=== PATIENT | male | born 1940 | race Caucasian/White ===

== ENCOUNTER → 2017-11-02 | Outpatient (CLI) | payer MEDICARE ==
--- NOTE | 2017-11-02 15:05 | XR ---
EXAMINATION TYPE: XR wrist complete LT DATE OF EXAM: 11/02/2017 CLINICAL HISTORY: Generalized wrist pain with no known injury. TECHNIQUE: Frontal, lateral and oblique images of the left wrist are obtained. COMPARISON: None FINDINGS: There is no acute fracture/dislocation evident in the left wrist. There is joint space ruby rowing and sclerosis of the scaphoid radial joint. There is widening of the scapholunate interval wit hout abnormal orientation of the lunate bone. This may represent chronic scapholunate ligament tear. Calcification is seen of the triangular fibrocartilage. Deformity of the distal radius likely relate s to sequela of prior trauma. Minimal degenerative changes at the first carpometacarpal joint are dis played as mild osseous irregularity. The overlying soft tissue appears unremarkable. IMPRESSION: 1. No acute fracture or dislocation in the left wrist. 2. Widening of the scapholunate interval which may represent chronic injury without lunate dislocatio n. MR could be performed for confirmation. 3. Sclerosis of the distal radius and scaphoid with joint space narrowing and apposition of the osseo us surfaces likely on a degenerative basis. 4. Calcification of the triangular fibrocartilage which can be seen in arthropathies.
== END | disposition home or self-care (01) ==
LOC: RADXRYALE 14:13
PROVIDERS: ATTEND Physician Assistant Medical
DX: M25.832 Other specified joint disorders, left wrist (principal); M12.832 Other specific arthropathies, not elsewhere classified, left wrist

== ENCOUNTER → 2018-12-12 | Outpatient (CLI) | payer MEDICARE ==
--- NOTE | 2018-12-12 11:43 | XR ---
EXAMINATION TYPE: XR knee complete LT DATE OF EXAM: 12/12/2018 CLINICAL HISTORY: Left knee pain and swelling TECHNIQUE: Three views of the left knee are obtained. COMPARISON: None. FINDINGS: There is no acute fracture/dislocation evident in left knee. Left knee arthroplasty mainta ins normal alignment without hardware fracture. Only minimal lucency is seen of the medial tibial annette teau and mediofemoral condyle without periprosthetic lucency. Minimal periprosthetic lucency of the t ibial stem is noted however overall findings are within normal limits. Severe atherosclerosis is pres ent. There is mild diffuse osseous demineralization. The overlying soft tissue appears unremarkable. IMPRESSION: There is no acute fracture or dislocation in the left knee. No malalignment of the prost hesis. If there is concern for a septic or septic prosthetic loosening bone scan could be performed.
== END | disposition home or self-care (01) ==
LOC: RADXRYALE 11:12
PROVIDERS: ATTEND Physician Assistant Medical
DX: M25.562 Pain in left knee (principal)

== ENCOUNTER → 2019-03-02 | Outpatient (CLI) | payer MEDICARE ==
--- NOTE | 2019-03-02 14:51 | CT ---
EXAMINATION TYPE: CT abdomen pelvis w con DATE OF EXAM: 03/02/2019 COMPARISON: HISTORY: Hematuria x [address] DLP: 1378.9 mGycm CONTRAST: CT scan of the abdomen and pelvis is performed with Oral Contrast and with IV Contrast, patient injec chun with 100 mL of Isovue M300. FINDINGS: LUNG BASES-: No visible nodule. No infiltrate. LIVER/GB: No calcified gallstones. No space occupying hepatic lesion. Biliary tree is of normal ca liber. PANCREAS: No inflammation. No distinct mass. SPLEEN: No splenic enlargement. No lesion seen. ADRENALS: No nodule. No thickening. KIDNEYS/BLADDER: 1 cm calculus or 2 adjacent calculi within the urinary bladder to the right of the m idline near the right UVJ. No evidence for hydronephrosis. 4 mm nonobstructing calculus mid to lower pole right kidney. No left-sided calculi seen. Subcentimeter renal cysts noted bilaterally. BOWEL: Normal appendix. Normal bowel caliber. No inflammation. GENITAL ORGANS: No gross abnormality. LYMPH NODES: No greater than 1cm abdominal or pelvic lymph nodes are appreciated. AORTA: No significant abnormality. OSSEOUS STRUCTURES: Vacuum disc changes lumbar spine. OTHER: No significant additional abnormality is seen. IMPRESSION: 1. Urinary bladder calculus as noted above adjacent to the right UVJ without obstructive change noted . Nonobstructing right renal calculus noted as well.
== END | disposition home or self-care (01) ==
LOC: RADCTMAIN 12:52
PROVIDERS: ATTEND Urology
DX: N20.0 Calculus of kidney (principal); N21.0 Calculus in bladder
CPT/HCPCS: 82565; 84520; 74177; 36415; Q9967

== ENCOUNTER 2019-03-12 09:45 | Emergency (ER) | payer MEDICARE ==
--- NOTE | 2019-03-12 10:09 | ED ---
Male Urogenital HPI - General Chief complaint: Urogenital Stated complaint: Trouble urinating Time Seen by Provider: 03/12/19 09:56 Source: patient Mode of arrival: wheelchair Limitations: no limitations - History of Present Illness Initial comments: Patient is a 78-year-old male presenting to the emergency Department with complaints of unable to urinate since about 1 AM. Patient states yesterday he had a hard time urinating throughout the day but then has not been able to go since early this morning. Patient is complaining of abdominal pain and p ressure. Patient denies any fever, chills. Patient states he did have a recent bladder scope to look at a bladder stones approximately one week ago. Patient states he has been having hematuria for a few months now. No other complaints at this time. On arrival to ER, BP is elevated at 202/107. Rest of vital signs are normal, afebrile. - Related Data Home Medications Medication Instructions Recorded Confirmed Apixaban [Eliquis] 5 mg PO BID 03/12/19 03/12/19 Atorvastatin [Lipitor] 40 mg PO HS 03/12/19 03/12/19 Cholecalciferol [Vitamin D3 (25 1,000 unit PO TID 03/12/19 03/12/19 Mcg = 1000 Iu)] Insulin Aspart [NovoLOG Flexpen] 6 units SQ TID 03/12/19 03/12/19 Insulin Glargine [Lantus] 25 unit SQ HS 03/12/19 03/12/19 Levothyroxine Sodium [Synthroid] 88 mcg PO DAILY 03/12/19 03/12/19 Losartan Potassium [Cozaar] 25 mg PO HS 03/12/19 03/12/19 Montelukast [Singulair] 10 mg PO HS 03/12/19 03/12/19 Multivitamins, Thera [Multivitamin 1 tab PO DAILY 03/12/19 03/12/19 (formulary)] Tamsulosin HCl [Flomax] 0.4 mg PO BID 03/12/19 03/12/19 acetaZOLAMIDE [Diamox Sequels] 500 mg PO HS 03/12/19 03/12/19 metFORMIN HCL 1,000 mg PO BID 03/12/19 03/12/19 Allergies Allergy/AdvReac Type Severity Reaction Status Date / Time No Known Allergies Allergy Verified 03/12/19 10:14 Review of Systems ROS Statement: Those systems with pertinent positive or pertinent negative responses have been documented in the HPI. ROS Other: All systems not noted in ROS Statement are negative. Past Medical History Past Medical History: Diabetes Mellitus Additional Past Medical History / Comment(s): bladder stones History of Any Multi-Drug Resistant Organisms: None Reported Past Psychological History: No Psychological Hx Reported Smoking Status: Never smoker Past Alcohol Use History: None Reported Past Drug Use History: None Reported General Exam - General Exam Comments Initial Comments: GENERAL: Well-appearing, well-nourished and in mild distress secondary to abdominal pressure and pain. HEAD: Atraumatic, normocephalic. EYES: Pupils equal round and reactive to light, extraocular movements intact, sclera anicteric, conjunctiva are normal. ENT: TMs normal, nares patent, oropharynx clear without exudates. Moist mucous membranes. NECK: Normal range of motion, supple without lymphadenopathy or JVD. LUNGS: Breath sounds clear to auscultation bilaterally and equal. No wheezes rales or rhonchi. HEART: Regular rate and rhythm without murmurs, rubs or gallops. ABDOMEN: Tender to palpation over suprapubic area secondary to retention. After catheter placed, no abdominal pain noted. Soft, normoactive bowel sounds. No guarding, no rebound. No masses appreciated. : Deferred EXTREMITIES: Normal range of motion, no pitting or edema. No clubbing or cyanosis. NEUROLOGICAL: Cranial nerves II through XII grossly intact. Normal speech, normal gait. PSYCH: Normal mood, normal affect. SKIN: Warm, Dry, normal turgor, no rashes or lesions noted. Limitations: no limitations Course Vital Signs 03/12/19 03/12/19 09:47 12:00 Temperature 97.9 F 98.1 F Pulse Rate 84 80 Respiratory 18 16 Rate Blood Pressure 202/107 122/69 O2 Sat by Pulse 98 98 Oximetry Medical Decision Making - Medical Decision Making Patient is a 78-year-old male presenting with urinary retention since early this morning. Patient has been seen Dr. Prieto for 2 bladder stones and hematuria for a few months now. Patient states he was only able to urinate a little bit throughout yesterday and then everything stopped around 1 AM. Patient is having abdominal pain and discomfort. Bladder scan was performed and showed 1 L fluid. A goldman catheter was placed with immediate improvement in symptoms. CBC, CMP are within normal limits. UA shows moderate amount of blood and wbc's. KUB shows the same to calcified structures that were identified on CT and 823. There position is relatively unchanged. There is no obstruction at this time. Goldman will be left in place at this time and patient will follow up with Dr. Jenelle smallwood tomorrow. Patient is in agreement with this plan of care. Vital signs are stable upon discharge. He turned parameters were discussed with the patient he verbalizes understanding. Case discussed with Dr. Quintero. - Lab Data Result diagrams: 03/12/19 10:35 03/12/19 10:35 Lab Results 03/12/19 03/12/19 03/12/19 Range/Units 10:15 10:35 10:35 WBC 11.1 H (3.8-10.6) k/uL RBC 5.68 (4.30-5.90) m/uL Hgb 17.7 H (13.0-17.5) gm/dL Hct 53.4 H (39.0-53.0) % MCV 94.1 (80.0-100.0) fL MCH 31.1 (25.0-35.0) pg MCHC 33.1 (31.0-37.0) g/dL RDW 14.6 (11.5-15.5) % Plt Count 210 (150-450) k/uL Neutrophils % 80 % Lymphocytes % 9 % Monocytes % 8 % Eosinophils % 2 % Basophils % 1 % Neutrophils # 8.8 H (1.3-7.7) k/uL Lymphocytes # 1.0 (1.0-4.8) k/uL Monocytes # 0.9 (0-1.0) k/uL Eosinophils # 0.2 (0-0.7) k/uL Basophils # 0.1 (0-0.2) k/uL Sodium 137 (137-145) mmol/L Potassium 4.2 (3.5-5.1) mmol/L Chloride 109 H (98-107) mmol/L Carbon Dioxide 18 L (22-30) mmol/L Anion Gap 10 mmol/L BUN 21 H (9-20) mg/dL Creatinine 0.91 (0.66-1.25) mg/dL Est GFR (CKD-EPI)AfAm >90 (>60 ml/min/1.73 sqM) Est GFR (CKD-EPI)NonAf 82 (>60 ml/min/1.73 sqM) Glucose 217 H (74-99) mg/dL Calcium 9.4 (8.4-10.2) mg/dL Total Bilirubin 0.7 (0.2-1.3) mg/dL AST 18 (17-59) U/L ALT 23 (21-72) U/L Alkaline Phosphatase 69 (38-126) U/L Total Protein 6.4 (6.3-8.2) g/dL Albumin 3.5 (3.5-5.0) g/dL Urine Color Light Yellow Urine Appearance Cloudy (Clear) Urine pH 5.5 (5.0-8.0) Ur Specific [place] 1.008 (1.001-1.035) Urine Protein Trace H (Negative) Urine Glucose (UA) Negative (Negative) Urine Ketones Negative (Negative) Urine Blood Moderate H (Negative) Urine Nitrite Negative (Negative) Urine Bilirubin Negative (Negative) Urine Urobilinogen <2.0 (<2.0) mg/dL Ur Leukocyte Esterase Large H (Negative) Urine RBC 52 H (0-5) /hpf Urine WBC 36 H (0-5) /hpf Urine WBC Clumps Few H (None) /hpf Urine Bacteria Many H (None) /hpf Disposition Clinical Impression: Urinary retention Disposition: HOME SELF-CARE Condition: Stable Instructions (If sedation given, give patient instructions): Urinary Retention in Men (ED), Goldman Catheter Placement and Care (ED) Additional Instructions: Please return to the Emergency Department if symptoms worsen or any other concerns. Follow-up with Dr. Prieto tomorrow as discussed. Is patient prescribed a controlled substance at d/c from ED?: No Referrals: Sharif Tamayo DO [Primary Care Provider] - 1-2 days [place] Prieto MD [STAFF PHYSICIAN] - 1-2 days
[2019-03-12 11:00] LABS: Appearance,Urine Cloudy (Clear); Bacteria,Urine Many /hpf; Bilirubin,Urine Negative (Negative); Blood,Urine Moderate (Negative); Color,Urine Light Yellow; Glucose,Urine (UA) Negative (Negative); Ketones,Urine Negative (Negative); Leukocyte Esterase,Urine Large (Negative); Nitrite,Urine Negative (Negative); PH, Urine 5.5 (5.0-8.0); Protein,Urine Trace (Negative); RBC,Urine 52 /hpf (0-5); Specific Gravity,Urine 1.008 (1.001-1.035); Urobilinogen,Urine <2.0 mg/dL (<2.0)
[2019-03-12 11:01] LABS: Basophils # (A) 0.1 k/uL (0-0.2); Basophils % (A) 1 %; Eosinophils # (A) 0.2 k/uL (0-0.7); Eosinophils % (A) 2 %; HCT 53.4 % (39.0-53.0); HGB 17.7 gm/dL (13.0-17.5); Lymphocytes % (A) 9 %; MCH 31.1 pg (25.0-35.0); MCHC 33.1 g/dL (31.0-37.0); MCV 94.1 fL (80.0-100.0); Mean Platelet Volume 7.6; Monocytes # (A) 0.9 k/uL (0-1.0); Monocytes % (A) 8 %; Neutrophils # (A) 8.8 k/uL (1.3-7.7); Neutrophils % (A) 80 %; Platelet Count 210 k/uL (150-450); RBC 5.68 m/uL (4.30-5.90); RDW 14.6 % (11.5-15.5); WBC 11.1 k/uL (3.8-10.6)
--- NOTE | 2019-03-12 11:06 | XR ---
EXAMINATION TYPE: XR KUB DATE OF EXAM: 03/12/2019 10:55 AM CLINICAL HISTORY: Abdominal pain with history of urinary bladder stone. Inability to urinate. TECHNIQUE: Single upright image of the abdomen is obtained. COMPARISON: CT 03/02/2019. FINDINGS: There are 2 calcified structures within the pelvis. The right lateral aspect of the expecte d location of the urinary bladder. These are thought to correspond to the calculi seen at the right u reterovesicular junction without hydronephrosis on the prior CT of 03/02/2019 these measure 1.0 cm and 0.8 cm. Extensive atherosclerosis of the abdominal aorta and its branches. Mild dextro scoliosis of lumbar spine and extensive degenerative change. Enlarged cardiac mediastinal silhouette with post CAB G changes and surgical clips in the lower mediastinum. Lung bases are well aerated. No suspicious justine cifications in the abdomen IMPRESSION: Two calcified structures in the expected location of the right ureterovesicular junction appear to represent calculi as seen on the prior CT of 03/02/2019, overall unchanged in position. Thes e did not resultant hydronephrosis at that time. Urologic consultation may be of benefit.
[2019-03-12 11:07] LABS: ALT 23 U/L (21-72); AST 18 U/L (17-59); African American GFR (CKD) >90 (>60 ml/min/1.73 sqM); Albumin 3.5 g/dL (3.5-5.0); Alkaline Phosphatase 69 U/L (38-126); Anion Gap 10 mmol/L; Blood Urea Nitrogen 21 mg/dL (9-20); Calcium 9.4 mg/dL (8.4-10.2); Carbon Dioxide 18 mmol/L (22-30); Chloride 109 mmol/L (98-107); Glucose 217 mg/dL (74-99); Potassium 4.2 mmol/L (3.5-5.1); Sodium 137 mmol/L (137-145); Total Bilirubin 0.7 mg/dL (0.2-1.3); Total Protein 6.4 g/dL (6.3-8.2)
[2019-03-12 12:16] VITALS: BP 122/69; PULSE 80; RESP 16; TEMP 98.1
== END 2019-03-12 12:00 | disposition home or self-care (01) ==
LOC: EC 09:45
DX: R33.9 Retention of urine, unspecified (principal); R10.9 Unspecified abdominal pain; E11.9 Type 2 diabetes mellitus without complications; Z79.01 Long term (current) use of anticoagulants; Z79.4 Long term (current) use of insulin; Z79.890 Hormone replacement therapy; Z79.899 Other long term (current) drug therapy
CPT/HCPCS: 36415; 51702; 74018; 80053; 81001; 85025; 87077; 87086; 87186; 99284

== ENCOUNTER → 2019-12-14 | Outpatient (CLI) | payer MEDICARE ==
--- NOTE | 2019-12-14 14:51 | XR ---
EXAMINATION TYPE: XR foot complete LT, XR ankle complete LT DATE OF EXAM: 12/14/2019 CLINICAL HISTORY: Foot and ankle pain increasing for 2 to 4 weeks with no known injury. TECHNIQUE: Frontal, lateral and oblique images of the left ankle and foot are obtained. COMPARISON: None. FINDINGS: Small vessel atherosclerosis is seen. There is a small plantar heel spur. Sclerotic focus o f the calcaneus most commonly represents a bone island. Very small corticated fragment inferior to th e medial malleolus and larger bone fragment inferior to the lateral malleolus are well corticated and likely sequela prior injury. Very mild soft tissue swelling of the low ankle joint. There is no acute fracture/dislocation evident in the left ankle. Distal phalanges are suboptimally evaluated given flexion deformities of the distal interphalangeal joints. Possible old fracture defor mities of the distal second and third metatarsal heads. The ankle mortise appears within normal limit s. The overlying soft tissue appears unremarkable. There is no acute fracture or dislocation evident in the left foot. The joint spaces in the left foot are aligned. Overlying soft tissue is unremark able. IMPRESSION: 1. No acute fracture or dislocation in the left ankle or foot. 2. Very mild soft tissue swelling of the low left ankle joint with well-corticated osseous fragments distal to the medial and lateral malleoli likely sequela of prior injury. If there is persistent pain MRI could evaluate for the surrounding ligamentous and tendinous structures of the ankle.
== END | disposition home or self-care (01) ==
LOC: RADXRYALE 14:24
PROVIDERS: ATTEND Physician Assistant Medical
DX: M79.89 Other specified soft tissue disorders (principal); M25.572 Pain in left ankle and joints of left foot

== ENCOUNTER 2021-09-20 12:36 | Emergency (ER) | payer MEDICARE ==
[2021-09-20 12:41] VITALS: BP 189/86; PULSE 68; RESP 18; TEMP 98.5
--- NOTE | 2021-09-20 13:40 | ED ---
General Adult HPI - General Chief complaint: Back Pain/Injury Stated complaint: back/leg pain Time Seen by Provider: 09/20/21 12:40 Source: patient, RN notes reviewed, old records reviewed Mode of arrival: wheelchair Limitations: no limitations - History of Present Illness Initial comments: This is a 80-year-old male who presents emergency room complaining of left lower back pain which radiates down the back of his left leg. Patient states started this morning. Patient states yesterday he was doing quite a bit of work outside and trimming trees lifting some items in though he did notice any pain then he woke up this morning and had the pain radiating down his leg per patient denies any blunt trauma or fall. Patient denies any abdominal pain. Patient denies any other injuries. Patient points to the area of the sacrum. - Related Data Home Medications Medication Instructions Recorded Confirmed Apixaban [Eliquis] 5 mg PO BID 03/12/19 03/12/19 Atorvastatin [Lipitor] 40 mg PO HS 03/12/19 03/12/19 Cholecalciferol [Vitamin D3 (25 1,000 unit PO TID 03/12/19 03/12/19 Mcg = 1000 Iu)] Insulin Aspart [NovoLOG Flexpen] 6 units SQ TID 03/12/19 03/12/19 Insulin Glargine [Lantus] 25 unit SQ HS 03/12/19 03/12/19 Levothyroxine Sodium [Synthroid] 88 mcg PO DAILY 03/12/19 03/12/19 Losartan Potassium [Cozaar] 25 mg PO HS 03/12/19 03/12/19 Montelukast [Singulair] 10 mg PO HS 03/12/19 03/12/19 Multivitamins, Thera [Multivitamin 1 tab PO DAILY 03/12/19 03/12/19 (formulary)] Tamsulosin HCl [Flomax] 0.4 mg PO BID 03/12/19 03/12/19 acetaZOLAMIDE [Diamox Sequels] 500 mg PO HS 03/12/19 03/12/19 metFORMIN HCL [Glucophage] 1,000 mg PO BID 03/12/19 03/12/19 Previous Rx's Medication Instructions Recorded predniSONE [Deltasone] 40 mg PO DAILY #8 tab 09/20/21 Allergies Allergy/AdvReac Type Severity Reaction Status Date / Time No Known Allergies Allergy Verified 03/12/19 10:14 Review of Systems ROS Statement: Those systems with pertinent positive or pertinent negative responses have been documented in the HPI. ROS Other: All systems not noted in ROS Statement are negative. Past Medical History Past Medical History: Diabetes Mellitus Additional Past Medical History / Comment(s): bladder stones History of Any Multi-Drug Resistant Organisms: None Reported Past Surgical History: Heart Catheterization With Stent, Joint Replacement, Orthopedic Surgery Past Psychological History: No Psychological Hx Reported Smoking Status: Never smoker Past Alcohol Use History: None Reported Past Drug Use History: None Reported General Exam - General Exam Comments Initial Comments: GENERAL: Patient is well-developed and well-nourished. Patient is nontoxic and well-hydrated and is in mild distress. ENT: Neck is soft and supple. No significant lymphadenopathy is noted. Oropharynx is clear. Moist mucous membranes. Neck has full range of motion without eliciting any pain. EYES: The sclera were anicteric and conjunctiva were pink and moist. Extraocular movements were intact and pupils were equal round and reactive to light. Eyelids were unremarkable. SKIN: Skin is clear with no lesions or rashes and otherwise unremarkable. NEUROLOGIC: Patient is alert and oriented x3. Cranial nerves II through XII are grossly intact. Motor and sensory are also intact. Normal speech, volume and content. Symmetrical smile. Straight leg test is negative and the right leg but the patient has pain lifting the left leg at about 30. Perineum sensation is normal MUSCULOSKELETAL: Normal extremities with adequate strength and full range of motion. N LYMPHATICS: No significant lymphadenopathy is noted PSYCHIATRIC: Normal psychiatric evaluation. Limitations: no limitations Course Vital Signs 09/20/21 12:37 Temperature 98.5 F Pulse Rate 68 Respiratory 18 Rate Blood Pressure 189/86 O2 Sat by Pulse 97 Oximetry Medical Decision Making - Medical Decision Making Lumbosacral spine showed no acute changes however there was some degenerative changes L4 to L5 Patient got a shot of Toradol and prednisone the emergency department and was feeling considerably better. Disposition Clinical Impression: Sciatica Disposition: HOME SELF-CARE Condition: Good Instructions (If sedation given, give patient instructions): Sciatica (ED) Additional Instructions: Patient should take prednisone daily starting tomorrow as prescribed. Patient should take Tylenol with codeine just prior to bed for pain relief. Patient can take Ultram during the day for pain relief along with Tylenol Prescriptions: predniSONE [Deltasone] 40 mg PO DAILY #8 tab Is patient prescribed a controlled substance at d/c from ED?: No Referrals: Sharif Tamayo DO [Primary Care Provider] - 1-2 days Time of Disposition: 14:23
[2021-09-20] MEDS ORDERED: KETOROLAC 15 MG/ML 1 ML VIAL IM STA (13:50)
[2021-09-20] MEDS ORDERED: predniSONE 50 MG TAB PO STA (13:50)
--- NOTE | 2021-09-20 14:12 | XR ---
EXAMINATION TYPE: XR lumbosacral spine min 4V DATE OF EXAM: 09/20/2021 COMPARISON: NONE HISTORY: Back pain TECHNIQUE: 7 views FINDINGS: There is mild lumbar dextroscoliosis. There is degenerative moderate disc space narrowing a t L3-4. There is no compression fracture. Sacroiliac joints are intact. There is a minimal L4-5 spond ylolisthesis. There is no spondylolysis. Abdominal aorta is atheromatous. IMPRESSION: Spondylotic changes and mild dextro scoliosis. Degenerative first-degree L4-5 spondylolisthesis. No f racture. No change compared to old CT scan of 03/02/2019.
[2021-09-20] MEDS ORDERED: ACET/COD 300 MG/30 MG STARTER PACK 6 TAB BTL PO STA (14:23)
[2021-09-20] MEDS ORDERED: traMADol 50 MG STARTER PACK 3 TAB BTL PO STA (14:24)
== END 2021-09-20 14:50 | disposition home or self-care (01) ==
LOC: EC 12:36
DX: M54.32 Sciatica, left side (principal); E11.9 Type 2 diabetes mellitus without complications; Y93.H2 Activity, gardening and landscaping
CPT/HCPCS: 72110; 99283; 96372; J1885; J7512

== ENCOUNTER 2021-09-25 09:04 | Emergency (ER) | payer MEDICARE ==
[2021-09-25 10:07] VITALS: TEMP 97.8
[2021-09-25] MEDS ORDERED: KETOROLAC 15 MG/ML 1 ML VIAL IM STA (10:10)
[2021-09-25] MEDS ORDERED: predniSONE 50 MG TAB PO STA (10:10)
--- NOTE | 2021-09-25 10:26 | ED ---
Back Pain HPI - General Chief Complaint: Back Pain/Injury Stated Complaint: groin & leg pain Time Seen by Provider: 09/25/21 10:01 Source: patient, family, RN notes reviewed Limitations: no limitations - History of Present Illness Initial Comments: This is a 81-year-old male who presents emergency Department with left lower back pain radiating into his left lower extremity. Patient was evaluated by Dr. Wood in the emergency Department 5 days ago. Patient was noted to be doing strenuous work prior to the pain. In the emergency department, he was given IM Toradol 15 mg and prednisone 50 mg, which was noted to improve the patient's symptoms. Patient was discharged with Ultram and Tylenol No. 3 starter packs, as well as a prescription for prednisone. Patient states that this improved his symptoms when he was taking it, however it never completely resolved. States that afterwards the pain returned. Also states that the pain seems to have progressed, and he is having difficulty sleeping and getting around. Patient has no neurological deficits or new symptoms. Denies any loss of bowel or bladder control. He did not follow up with his PCP after his last visit here to discuss an MRI. MD Complaint: back pain Onset/Timin -: days(s) Similar Symptoms Previously: Yes Place: home Radiation: left leg Quality: sharp, stabbing Consistency: constant - Related Data Home Medications Medication Instructions Recorded Confirmed Apixaban [Eliquis] 5 mg PO BID 03/12/19 09/25/21 Atorvastatin [Lipitor] 40 mg PO HS 03/12/19 09/25/21 Insulin Aspart [NovoLOG Flexpen] See Protocol SQ AC-TID 03/12/19 09/25/21 Insulin Glargine [Lantus] 30 unit SQ HS 03/12/19 09/25/21 Losartan Potassium [Cozaar] 25 mg PO DAILY 03/12/19 09/25/21 Tamsulosin HCl [Flomax] 0.8 mg PO DAILY 03/12/19 09/25/21 metFORMIN HCL [Glucophage] 1,000 mg PO BID 03/12/19 09/25/21 Brimonidine Tartrate/Timolol 1 drop BOTH EYES BID 09/25/21 09/25/21 [Combigan 0.2%-0.5% Eye Drops] Cholecalciferol [Vitamin D3 (125 125 mcg PO DAILY 09/25/21 09/25/21 Mcg = 5000 Iu)] Dorzolamide HCl/Pf [Dorzolamide 2% 1 drop BOTH EYES BID 09/25/21 09/25/21 Eye Drop] Fluticasone Nasal [place] [Flonase 2 spray EA NOSTRIL DAILY 09/25/21 09/25/21 Nasal [place]] Levothyroxine Sodium [Synthroid] 112 mcg PO DAILY 09/25/21 09/25/21 Netarsudil Mesylat/Latanoprost 1 drop BOTH EYES HS 09/25/21 09/25/21 [Rocklat[place] 0.02%-0.005% Eye Drp] Temazepam 7.5 mg PO HS PRN 09/25/21 09/25/21 Testosterone Cypionate 200 mg IM Q21D 09/25/21 09/25/21 [Depo-Testosterone] traMADol HCL [Ultram] 50 mg PO ONCE 09/25/21 09/25/21 Previous Rx's Medication Instructions Recorded HYDROcodone/APAP 5-325MG [[place] 1 tab PO Q6HR PRN 3 Days #12 tab 09/25/21 5-325] Lidocaine 5% Patch [Lidoderm 5% 1 patch TOPICAL DAILY PRN #10 patch 09/25/21 Patch] Allergies Allergy/AdvReac Type Severity Reaction Status Date / Time No Known Allergies Allergy Verified 09/25/21 10:47 Review of Systems ROS Statement: Those systems with pertinent positive or pertinent negative responses have been documented in the HPI. ROS Other: All systems not noted in ROS Statement are negative. Constitutional: Denies: fever, chills ENT: Denies: ear pain, throat pain Respiratory: Denies: cough, dyspnea Cardiovascular: Denies: chest pain, palpitations Gastrointestinal: Denies: abdominal pain, nausea, vomiting, diarrhea Genitourinary: Denies: urgency, dysuria Musculoskeletal: Reports: back pain Skin: Denies: rash Neurological: Denies: headache, weakness Past Medical History Past Medical History: Diabetes Mellitus Additional Past Medical History / Comment(s): bladder stones History of Any Multi-Drug Resistant Organisms: None Reported Past Surgical History: Heart Catheterization With Stent, Joint Replacement, Orthopedic Surgery Past Psychological History: No Psychological Hx Reported Smoking Status: Never smoker Past Alcohol Use History: None Reported Past Drug Use History: None Reported General Exam Limitations: no limitations General appearance: alert, in distress Head exam: Present: atraumatic, normocephalic, normal inspection Respiratory exam: Present: normal lung sounds bilaterally. Absent: respiratory distress, wheezes, rales, rhonchi, stridor Cardiovascular Exam: Present: regular rate, normal rhythm, normal heart sounds. Absent: systolic murmur, diastolic murmur, rubs, gallop, clicks Left Hip exam: Present: normal inspection. Absent: full ROM (limited by pain), tenderness, swelling, ecchymosis, deformity, erythema, external rotation, internal rotation, shortening Upper Leg exam: Present: normal inspection, tenderness (At the lateral aspect). Absent: full ROM (limited by pain), swelling, ecchymosis, deformity, erythema Knee exam: Present: full knee extension. Absent: tenderness, pain w/ pronation/supination, posterior draw sign, pain/laxity with valgus, pain/laxity with varus Neurovascular tendon exam: Present: no vascular compromise Back exam: Present: normal inspection, full ROM, tenderness (mild left lower back tenderness) Neurological exam: Present: alert, oriented X3, CN II-XII intact, reflexes normal. Absent: motor sensory deficit Psychiatric exam: Present: normal affect, normal mood Skin exam: Present: warm, dry, intact, normal color. Absent: rash Course Vital Signs 09/25/21 09/25/21 09/25/21 09:06 09:45 11:40 Temperature 97.1 F L 97.8 F Pulse Rate 60 52 L 71 Respiratory 18 18 16 Rate Blood Pressure 185/91 166/98 158/99 O2 Sat by Pulse 98 94 L 96 Oximetry Medical Decision Making - Medical Decision Making This is a 81-year-old male who presents to the emergency department with radiating back pain. Patient given 15 mg of IM Toradol and 50 mg of prednisone, which was given to him in the emergency department during his last visit. Patient noted improvement after treatment. Will discharge the patient with another Tylenol No. 3 starter pack, a short course or [place], and lidocaine patches. Advised he use the [place] sparingly, particularly at night when he has difficulty sleeping. He should avoid taking the tylenol #3, [place], or ultram at the same time. Discussed with the patient that he needs to follow-up with his primary care physician for an MRI referral to better evaluate his symptoms. We also discussed physical therapy and that it would be beneficial for the patient to at least have an evaluation by a physical therapist to see if that would be a viable treatment option. Return precautions reviewed in depth, the patient is instructed to return to the emergency department if symptoms worsen, including but not limited to, loss of bowel or bladder control, inability to ambulate, or worsening pain. Patient verbalized understanding. This case was discussed in detail with the attending ED physician. Presentation, findings, and treatment plan discussed in detail as well. Disposition Clinical Impression: Lumbar radiculopathy Disposition: HOME SELF-CARE Instructions (If sedation given, give patient instructions): Sciatica (ED), Ac [place] Low Back Pain (ED), Lumbar Radiculopathy (ED) Additional Instructions: Return to the emergency department if your symptoms worsen or do not improve, or you develop loss of bowel or bladder control. Follow up with primary care provider for an MRI and long-term symptomatic management. We did discuss physical therapy, and having at least an initial evaluation with a physical therapist could be very beneficial. Do not take the [place] with the Tramadol, use the [place] when you symptoms are more severe, particularly at night when you cannot sleep. Prescriptions: Lidocaine 5% Patch [Lidoderm 5% Patch] 1 patch TOPICAL DAILY PRN #10 patch PRN Reason: Pain HYDROcodone/APAP 5-325MG [[place] 5-325] 1 tab PO Q6HR PRN 3 Days #12 tab PRN Reason: Pain Is patient prescribed a controlled substance at d/c from ED?: Yes When asked, does pt state using other controlled substances?: No If prescribed controlled substance>3 days was MAPS reviewed?: Prescribed <3 Days Referrals: Sharif Tamayo DO [Primary Care Provider] - 1-2 days
[2021-09-25 11:42] VITALS: BP 158/99; PULSE 71; RESP 16
[2021-09-25] MEDS ORDERED: ACET/COD 300 MG/30 MG STARTER PACK 6 TAB BTL PO STA (11:48)
== END 2021-09-25 12:13 | disposition home or self-care (01) ==
LOC: EC 09:04
DX: M54.16 Radiculopathy, lumbar region (principal)
CPT/HCPCS: 99283; 96372; J1885; J7512

== ENCOUNTER → 2021-10-03 | Outpatient (CLI) | payer MEDICARE ==
--- NOTE | 2021-10-03 19:04 | MR ---
EXAMINATION TYPE: MR lumbar spine wo con DATE OF EXAM: 10/03/2021 COMPARISON: None HISTORY: R53.1, M54.42, Lower back pain into left Thigh Multiplanar multi echo imaging of the lumbar spine without contrast. Lumbar vertebrae have overall fairly normal alignment. There is a moderate narrowing of the L3-4 disc space with minimal anterior subluxation of 3 mm. There is no spondylolysis. There is a lateral disc herniation at L2-3 on the left side and encroaching on the neural foramen. Fragment measures 11 x 7 m m. There is also some left-sided L3-4 neural foraminal narrowing due to disc space narrowing and subl uxation and facet arthropathy. There is no spinal canal stenosis. There is no lumbar paraspinal mass. I see no focal bone destruction. No significant compression defor mity. IMPRESSION: Moderate spondylosis with degenerative first-degree L3-4 spondylolisthesis. L2-3 left sided lateral disc herniation with neural foraminal impingement. left side neural foraminal stenosis at L3-4.
== END | disposition home or self-care (01) ==
LOC: RADMRIMAIN 11:50
PROVIDERS: ATTEND Physician Assistant Medical
DX: M43.16 Spondylolisthesis, lumbar region (principal); M51.36 Other intervertebral disc degeneration, lumbar region; M54.42 Lumbago with sciatica, left side; R53.1 Weakness
CPT/HCPCS: 72148

== ENCOUNTER 2022-01-15 10:34 | Inpatient (IN) | payer MEDICARE ==
--- NOTE | 2022-01-15 11:30 | XR ---
EXAMINATION TYPE: XR chest 2V DATE OF EXAM: 01/15/2022 COMPARISON: None HISTORY: 81-year-old male lightheaded TECHNIQUE: PA and lateral views FINDINGS: Median sternotomy wires are present. Slight rightward patient rotation. Heart borderline enlarged. In terstitial/vascular prominence but no consolidation or pleural effusion. Mild anterior wedging of a c ouple mid thoracic vertebral bodies with accentuated midthoracic kyphosis. IMPRESSION: 1. Borderline heart size and interstitial/vascular prominence. Correlate to exclude CHF with mild pul monary vascular congestion. 2. Mild anterior wedging of a couple mid thoracic vertebral bodies with accentuated midthoracic kypho sis. These are age indeterminate, probably chronic changes. Clinically correlate.
[2022-01-15 11:50] LABS: Basophils % (A) 1 %; Eosinophils # (A) 0.2 k/uL (0-0.7); Eosinophils % (A) 2 %; HCT 49.9 % (39.0-53.0); HGB 16.9 gm/dL (13.0-17.5); Lymphocytes # (A) 1.5 k/uL (1.0-4.8); Lymphocytes % (A) 19 %; MCH 33.2 pg (25.0-35.0); MCHC 33.9 g/dL (31.0-37.0); MCV 97.8 fL (80.0-100.0); Mean Platelet Volume 8.6; Monocytes # (A) 0.7 k/uL (0-1.0); Monocytes % (A) 9 %; Neutrophils # (A) 5.2 k/uL (1.3-7.7); Neutrophils % (A) 67 %; Platelet Count 203 k/uL (150-450); RDW 13.6 % (11.5-15.5); WBC 7.7 k/uL (3.8-10.6)
[2022-01-15 11:52] LABS: AST 19 U/L (17-59); African American GFR (CKD) >90 (>60 ml/min/1.73 sqM); Albumin 3.9 g/dL (3.5-5.0); Alkaline Phosphatase 61 U/L (38-126); Blood Urea Nitrogen 12 mg/dL (9-20); Carbon Dioxide 25 mmol/L (22-30); Chloride 104 mmol/L (98-107); Glucose 126 mg/dL (74-99); Non-African American GFR(CKD) 86 (>60 ml/min/1.73 sqM); Potassium 4.5 mmol/L (3.5-5.1); Total Bilirubin 0.9 mg/dL (0.2-1.3); Total Protein 6.5 g/dL (6.3-8.2)
[2022-01-15 12:02] LABS: Partial Thromboplastin Time 24.7 sec (22.0-30.0); Prothrombin Time 11.2 sec (9.0-12.0)
--- NOTE | 2022-01-15 12:15 | ED ---
Dizziness HPI - General Chief Complaint: Dizziness Stated Complaint: Dizziness/weakness Time Seen by Provider: 01/15/22 10:51 Source: patient Mode of arrival: wheelchair Limitations: no limitations - History of Present Illness Initial Comments: Patient is a 81-year-old male who presents to the emergency department with a chief complaint of generalized weakness and intermittent episodes of dizziness 5 days. Patient states he overall feels very tired and has episodes where he feels as if the room is spinning and feels very unsteady on his feet. Patient denies syncope, chest pain, and shortness of breath. Patient states these episodes have never happened before. Patient is a questionable historian regarding history. His somewhat helps provide information. Patient is on Eliquis likely due to atrial fibrillation. Denies history of heart attack. Denies fever, chills, abdominal pain, back pain, nausea, vomiting, burning with urination, increased urinary frequency, blood in the urine, and blood in the stool. MD Complaint: dizziness - Related Data Home Medications Medication Instructions Recorded Confirmed Apixaban [Eliquis] 5 mg PO BID 03/12/19 09/25/21 Atorvastatin [Lipitor] 40 mg PO HS 03/12/19 09/25/21 Insulin Aspart [NovoLOG Flexpen] See Protocol SQ AC-TID 03/12/19 09/25/21 Insulin Glargine [Lantus] 30 unit SQ HS 03/12/19 09/25/21 Losartan Potassium [Cozaar] 25 mg PO DAILY 03/12/19 09/25/21 Tamsulosin HCl [Flomax] 0.8 mg PO DAILY 03/12/19 09/25/21 metFORMIN HCL [Glucophage] 1,000 mg PO BID 03/12/19 09/25/21 Brimonidine Tartrate/Timolol 1 drop BOTH EYES BID 09/25/21 09/25/21 [Combigan 0.2%-0.5% Eye Drops] Cholecalciferol [Vitamin D3 (125 125 mcg PO DAILY 09/25/21 09/25/21 Mcg = 5000 Iu)] Dorzolamide HCl/Pf [Dorzolamide 2% 1 drop BOTH EYES BID 09/25/21 09/25/21 Eye Drop] Fluticasone Nasal [place] [Flonase 2 spray EA NOSTRIL DAILY 09/25/21 09/25/21 Nasal [place]] Levothyroxine Sodium [Synthroid] 112 mcg PO DAILY 09/25/21 09/25/21 Netarsudil Mesylat/Latanoprost 1 drop BOTH EYES HS 09/25/21 09/25/21 [Rocklatan 0.02%-0.005% Eye Drp] Temazepam 7.5 mg PO HS PRN 09/25/21 09/25/21 Testosterone Cypionate 200 mg IM Q21D 09/25/21 09/25/21 [Depo-Testosterone] traMADol HCL [Ultram] 50 mg PO ONCE 09/25/21 09/25/21 Previous Rx's Medication Instructions Recorded HYDROcodone/APAP 5-325MG [[place] 1 tab PO Q6HR PRN 3 Days #12 tab 09/25/21 5-325] Lidocaine 5% Patch [Lidoderm 5% 1 patch TOPICAL DAILY PRN #10 patch 09/25/21 Patch] Allergies Allergy/AdvReac Type Severity Reaction Status Date / Time No Known Allergies Allergy Verified 01/15/22 10:46 Review of Systems ROS Statement: Those systems with pertinent positive or pertinent negative responses have been documented in the HPI. ROS Other: All systems not noted in ROS Statement are negative. Past Medical History Past Medical History: Diabetes Mellitus Additional Past Medical History / Comment(s): bladder stones History of Any Multi-Drug Resistant Organisms: None Reported Past Surgical History: Heart Catheterization With Stent, Joint Replacement, Orthopedic Surgery Past Psychological History: No Psychological Hx Reported Smoking Status: Never smoker Past Alcohol Use History: None Reported Past Drug Use History: None Reported General Exam Limitations: no limitations General appearance: alert, in no apparent distress Eye exam: Present: normal appearance, PERRL, EOMI. Absent: scleral icterus, conjunctival injection, periorbital swelling Respiratory exam: Present: normal lung sounds bilaterally. Absent: respiratory distress, wheezes, rales, rhonchi, stridor Cardiovascular Exam: Present: regular rate, irregular rhythm (irregularly irregular ), normal heart sounds. Absent: normal rhythm, systolic murmur, diastolic murmur, rubs, gallop, clicks GI/Abdominal exam: Present: soft, normal bowel sounds. Absent: distended, tenderness, guarding, rebound, rigid Extremities exam: Present: normal inspection, full ROM, normal capillary refill. Absent: tenderness, pedal edema, joint swelling, calf tenderness Neurological exam: Present: alert, oriented X3, CN II-XII intact Psychiatric exam: Present: normal affect, normal mood Skin exam: Present: warm, dry, intact, normal color. Absent: rash Course Vital Signs 01/15/22 01/15/22 01/15/22 10:46 10:58 13:35 Temperature 97.9 F Pulse Rate 46 L 40 L 38 L Respiratory 16 20 Rate Blood Pressure 145/77 156/72 O2 Sat by Pulse 99 97 Oximetry Medical Decision Making - Medical Decision Making This is a 81-year-old male who presents for generalized weakness and dizziness. Thorough history and examination were performed. Patient is well-appearing. He is bradycardic at 46 which appears significantly decreased from his typical pulse. Patient and his state he has never been told he has a low heart beat before. Full cardiac workup initiated. Patient placed on case monitor. EKG shows atrial fibrillation with slow ventricular response at 46. There is no previous to compare. Laboratory studies obtained. Hemoglobin is normal at 16.9 Troponin is within normal limits. Patient's pulse continued in the low 40s and high 30's during his emergency stay. Patient did have dizziness episode in the emergency department. At this time his pulse dropped to 38 bpm and patient became nauseous. Zofran ordered. At this time I recommend admission for symptomatic bradycardia with cardiology evaluation. Patient verbalizes understanding and is agreeable to admission. Case discussed with Saritha. Patient will be admitted to his service with cardiology consult for further evaluation and management of his symptoms. Patient admitted in stable condition. Dr. Johnston is my attending. - Lab Data Result diagrams: 01/15/22 11:07 01/15/22 11:07 Lab Results 01/15/22 01/15/22 01/15/22 Range/Units 11:07 11:07 11:07 WBC 7.7 (3.8-10.6) k/uL RBC 5.10 (4.30-5.90) m/uL Hgb 16.9 (13.0-17.5) gm/dL Hct 49.9 (39.0-53.0) % MCV 97.8 (80.0-100.0) fL MCH 33.2 (25.0-35.0) pg MCHC 33.9 (31.0-37.0) g/dL RDW 13.6 (11.5-15.5) % Plt Count 203 (150-450) k/uL MPV 8.6 Neutrophils % 67 % Lymphocytes % 19 % Monocytes % 9 % Eosinophils % 2 % Basophils % 1 % Neutrophils # 5.2 (1.3-7.7) k/uL Lymphocytes # 1.5 (1.0-4.8) k/uL Monocytes # 0.7 (0-1.0) k/uL Eosinophils # 0.2 (0-0.7) k/uL Basophils # 0.0 (0-0.2) k/uL PT 11.2 (9.0-12.0) sec INR 1.0 (<1.2) APTT 24.7 (22.0-30.0) sec Sodium 137 (137-145) mmol/L Potassium 4.5 (3.5-5.1) mmol/L Chloride 104 (98-107) mmol/L Carbon Dioxide 25 (22-30) mmol/L Anion Gap 8 mmol/L BUN 12 (9-20) mg/dL Creatinine 0.78 (0.66-1.25) mg/dL Est GFR (CKD-EPI)AfAm >90 (>60 ml/min/1.73 sqM) Est GFR (CKD-EPI)NonAf 86 (>60 ml/min/1.73 sqM) Glucose 126 H (74-99) mg/dL Calcium 8.9 (8.4-10.2) mg/dL Magnesium 1.6 (1.6-2.3) mg/dL Total Bilirubin 0.9 (0.2-1.3) mg/dL AST 19 (17-59) U/L ALT 15 (4-49) U/L Alkaline Phosphatase 61 (38-126) U/L Troponin I (0.000-0.034) ng/mL Total Protein 6.5 (6.3-8.2) g/dL Albumin 3.9 (3.5-5.0) g/dL Blood Type Blood Type Recheck Bld Type Recheck Status Antibody Screen Spec Expiration Date 01/15/22 01/15/22 Range/Units 11:07 11:15 WBC (3.8-10.6) k/uL RBC (4.30-5.90) m/uL Hgb (13.0-17.5) gm/dL Hct (39.0-53.0) % MCV (80.0-100.0) fL MCH (25.0-35.0) pg MCHC (31.0-37.0) g/dL RDW (11.5-15.5) % Plt Count (150-450) k/uL MPV Neutrophils % % Lymphocytes % % Monocytes % % Eosinophils % % Basophils % % Neutrophils # (1.3-7.7) k/uL Lymphocytes # (1.0-4.8) k/uL Monocytes # (0-1.0) k/uL Eosinophils # (0-0.7) k/uL Basophils # (0-0.2) k/uL PT (9.0-12.0) sec INR (<1.2) APTT (22.0-30.0) sec Sodium (137-145) mmol/L Potassium (3.5-5.1) mmol/L Chloride (98-107) mmol/L Carbon Dioxide (22-30) mmol/L Anion Gap mmol/L BUN (9-20) mg/dL Creatinine (0.66-1.25) mg/dL Est GFR (CKD-EPI)AfAm (>60 ml/min/1.73 sqM) Est GFR (CKD-EPI)NonAf (>60 ml/min/1.73 sqM) Glucose (74-99) mg/dL Calcium (8.4-10.2) mg/dL Magnesium (1.6-2.3) mg/dL Total Bilirubin (0.2-1.3) mg/dL AST (17-59) U/L ALT (4-49) U/L Alkaline Phosphatase (38-126) U/L Troponin I <0.012 (0.000-0.034) ng/mL Total Protein (6.3-8.2) g/dL Albumin (3.5-5.0) g/dL Blood Type A Negative Blood Type Recheck No Previous Record Bld Type Recheck Status CABO Indicated Antibody Screen NEGATIVE Spec Expiration Date 01/18/20222314 Disposition Clinical Impression: Atrial fibrillation, Bradycardia, Dizziness, Generalized weakness Disposition: ADMITTED IP TO THIS [facility] Condition: Fair Referrals: Sharif Tamayo DO [Primary Care Provider] - 1-2 days Decision Time: 13:20
[2022-01-15 12:55] LABS: ALT 15 U/L (4-49); Anion Gap 8 mmol/L; Calcium 8.9 mg/dL (8.4-10.2); Magnesium 1.6 mg/dL (1.6-2.3); Sodium 137 mmol/L (137-145)
[2022-01-15] MEDS: SODIUM CHLORIDE 0.9% 1,000 ML IV SCH ×2 (14:00→21:06)
[2022-01-15 15:24] LABS: Appearance,Urine Clear (Clear); Bacteria,Urine Rare /hpf; Bilirubin,Urine Negative (Negative); Blood,Urine Negative (Negative); Color,Urine Yellow; Glucose,Urine (UA) 2+ (Negative); Ketones,Urine Negative (Negative); Leukocyte Esterase,Urine Large (Negative); Mucus,Urine Rare /hpf; Nitrite,Urine Negative (Negative); Protein,Urine 1+ (Negative); RBC,Urine 3 /hpf (0-5); Specific Gravity,Urine 1.011 (1.001-1.035); Urobilinogen,Urine <2.0 mg/dL (<2.0); WBC,Urine 95 /hpf (0-5)
[2022-01-15] MEDS ORDERED: NALOXONE 0.4 MG/ML 1 ML VIAL IV PRN (15:58)
--- NOTE | 2022-01-15 16:13 | P.HPIM ---
History of Present Illness H&P Date: 01/15/22 Chief Complaint: dizziness 81-year-old male who presents to the emergency department with a chief complaint of generalized weakness and intermittent episodes of dizziness 5 days. Patient states he overall feels very tired and has episodes where he feels as if the room is spinning and feels very unsteady on his feet. Patient denies syncope, chest pain, and shortness of breath. Patient states these episodes have never happened before. He does not have heart history according to him but has problems with aorta in the past that he is not able to explain. States his feet and legs have been getting more swollen the past week. Denies fever, chills, abdominal pain, back pain, nausea, vomiting, burning with urination, increased urinary frequency, blood in the urine, and blood in the stool. Review of Systems Complete review of system performed, pertinent positives per HPI otherwise negative Past Medical History Past Medical History: Diabetes Mellitus Additional Past Medical History / Comment(s): bladder stones History of Any Multi-Drug Resistant Organisms: None Reported Past Surgical History: Heart Catheterization With Stent, Joint Replacement, Orthopedic Surgery Past Psychological History: No Psychological Hx Reported Smoking Status: Never smoker Past Alcohol Use History: None Reported Past Drug Use History: None Reported Medications and Allergies Home Medications Medication Instructions Recorded Confirmed Type Apixaban [Eliquis] 5 mg PO BID 03/12/19 01/15/22 History Atorvastatin [Lipitor] 40 mg PO HS 03/12/19 01/15/22 History Insulin Aspart [NovoLOG Flexpen] See Protocol SQ AC-TID 03/12/19 01/15/22 History Insulin Glargine [Lantus] 35 unit SQ 03/12/19 01/15/22 History Losartan Potassium [Cozaar] 25 mg PO DAILY 03/12/19 01/15/22 History Tamsulosin HCl [Flomax] 0.8 mg PO DAILY 03/12/19 01/15/22 History metFORMIN HCL [Glucophage] 1,000 mg PO BID 03/12/19 01/15/22 History Brimonidine Tartrate/Timolol 1 drop BOTH EYES BID 09/25/21 01/15/22 History [Combigan 0.2%-0.5% Eye Drops] Cholecalciferol [Vitamin D3 (125 125 mcg PO DAILY 09/25/21 01/15/22 History Mcg = 5000 Iu)] Dorzolamide HCl/Pf [Dorzolamide 2% 1 drop BOTH EYES BID 09/25/21 01/15/22 History Eye Drop] Fluticasone Nasal [place] [Flonase 2 spr EA NOSTRIL DAILY 09/25/21 01/15/22 History Nasal [place]] Levothyroxine Sodium [Synthroid] 112 mcg PO DAILY 09/25/21 01/15/22 History Netarsudil Mesylat/Latanoprost 1 drop BOTH EYES HS 09/25/21 01/15/22 History [[place] 0.02%-0.005% Eye Drp] Temazepam 7.5 mg PO HS PRN 09/25/21 01/15/22 History Testosterone Cypionate 200 mg IM Q21D 09/25/21 01/15/22 History [Depo-Testosterone] Finasteride [Proscar] 5 mg PO DAILY 01/15/22 01/15/22 History Ketorolac 0.5% Ophth Soln [Acular 1 drop LEFT EYE QID 01/15/22 01/15/22 History 0.5%] Prednisolone Acetate/Pf 1 drop LEFT EYE QID 01/15/22 01/15/22 History [Prednisolone Acet 1% Eye Drop] Allergies Allergy/AdvReac Type Severity Reaction Status Date / Time No Known Allergies Allergy Verified 01/15/22 14:44 Physical Exam Vitals: Vital Signs Temp Pulse Pulse Resp BP Pulse Ox 01/15/22 13:43 45 L 01/15/22 13:35 38 L 20 156/72 97 01/15/22 10:58 40 L 01/15/22 10:46 97.9 F 46 L 16 145/77 99 Intake and Output 01/15/22 01/15/22 01/15/22 06:59 14:59 22:59 Other: Weight 90.718 kg Constitutional: No acute distress, conversant, pleasant Eyes:Anicteric sclerae, moist conjunctiva, no lid-lag, PERRLA, ENMT: Oropharynx clear, no erythema, exudates Neck: Supple, FROM, no masses, or JVD, No carotid bruits, No thyromegaly Lungs: Clear to auscultation, Clear to percussion, Normal respiratory effort, no accessory muscle use Cardiovascular: Bradycardic, irregular, No murmurs, gallops, or rubs, 1+ peripheral edema Abdominal: Soft, Nontender, no guarding, rebound or rigidity, Normoactive bowel sounds, No hepatomegaly, No splenomegaly, No palpable mass Skin: Normal temperature, tone, texture, turgor, no induration, No subcutaneous nodules, No rash, lesions, No ulcers Extremities: No digital cyanosis, No clubbing, Pedal pulses intact and symmetrical, Radial pulses intact and symmetrical, No calf tenderness Psychiatric: Alert and oriented to person, place and time, appropriate affect, intact judgement Neuro: Muscles Strength 5/5 in all 4 extremities, Sensation to light touch grossly present throughout, Cranial nerves II-XII grossly intact, no focal sensory deficits Results CBC & Chem 7: 01/15/22 11:07 01/15/22 11:07 Labs: Abnormal Lab Results - Last 24 Hours (Table) 01/15/22 Range/Units 11:07 Glucose 126 H (74-99) mg/dL Assessment and Plan Plan: Presyncope Bradycardia likely SSS with hx of a-fib D/w Dr. Giles Admit to tele unit Needs pacing pads at the bedside, atropine as well Continue eliquis DM 2 SSI Resume home lantus Hypothyroidism Check TSH Continue replacement HTN Hyperlipidemia Stable resume meds DVT prophylaxis On ac resume Admit to inpatient expected length of stay more than 2 midnights.
[2022-01-15 17:36] LABS: Glucose,Whole Blood 119 mg/dL (70-110)
[2022-01-15] MEDS: INSULIN ASPART (NovoLOG) 100 UNIT/ML VIAL SQ SCH ×2 (17:59→20:39)
[2022-01-15] MEDS ORDERED: ATROPINE SULFATE 0.1 MG/ML 10ML SYRINGE ONE (19:29)
[2022-01-15 19:56] LABS: Glucose,Whole Blood 177 mg/dL (70-110)
[2022-01-15] MEDS: NON FORMULARY DRUG (Netarsudil Mesylat/Latanoprost [Rocklatan 0.02%-0.005% Eye Drp] 2.5 ML BOTH EYES SCH (20:37)
[2022-01-15] MEDS: INSULIN DETEMIR (LEVEMIR) 100 UNIT/ML SYR SQ SCH (20:38)
[2022-01-15] MEDS: APIXABAN 5 MG TAB PO SCH (20:38)
[2022-01-15] MEDS: ATORVASTATIN 40 MG TAB PO SCH (20:38)
[2022-01-15] MEDS: DORZOLAMIDE HCL 2% DROPS 10 ML BTL BOTH EYES SCH (21:02)
[2022-01-15] MEDS: BRIMONIDINE TARTRATE 0.2% DROPS 5 ML BTL BOTH EYES SCH (21:03)
[2022-01-15] MEDS: prednisoLONE ACETATE 1% OPHTH DROPS 5 ML BTL LEFT EYE SCH ×2 (21:04→21:10)
[2022-01-15] MEDS: TIMOLOL 0.5% OPHTH DROPS 5 ML BTL BOTH EYES SCH (21:05)
--- NOTE | 2022-01-16 05:48 | P.CRDCN ---
History of Present Illness History of present illness: HISTORY OF PRESENTING ILLNESS Patient is pleasant 81-year-old male with history of diabetes mellitus type 2, CAD with prior PCI as well as CABG, atrial fibrillation, hypertension, questionable mild dementia, cataracts who presents secondary to multiple episodes of dizziness and lightheadedness. Patient somewhat of a poor historian however has been having generalized weakness and dizziness for the past week. He denies any inciting events or new medications. He does not take any rate controlling medications. His medication list was apparently verified by . He was started on timolol eyedrops secondary recent eye surgery however not typical to be absorbed systemically. 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 Does have a history of atrial fibrillation and is anticoagulated on Eliquis. EKG shows atrial fibrillation with heart rate 46 bpm, Q waves inferiorly, Q waves anterior septal without significant ST or T wave abnormalities. He denies any chest pain or pressure. Blood work shows hemoglobin 16.9, creatinine 0.78, troponin was and 0.012, proBNP 1620. Urinalysis did show large leukocyte esterase and 95 white blood cells however denies any recent fevers, chills, dysuria. Telemetry has shown persistent bradycardia with heart rates mainly in the high 30s and up to high 40s. REVIEW OF SYSTEMS At the time of my exam: CONSTITUTIONAL: Denies fever or chills. CARDIOVASCULAR: Denies chest pain, shortness of breath, orthopnea, PND or palpitations. +lightheadedness RESPIRATORY: Denies cough. GASTROINTESTINAL: Denies abdominal pain, diarrhea, constipation, nausea or vomiting. MUSCULOSKELETAL: Denies myalgias. NEUROLOGIC: Denies numbness, tingling or weakness. ENDOCRINE: Denies fatigue, weight change, polydipsia or polyurina. GENITOURINARY: Denies burning, hematuria or urgency with micturation. HEMATOLOGIC: Denies history of anemia or bleeding. PHYSICAL EXAMINATION Vital signs reviewed. CONSTITUTIONAL: No apparent distress. HEENT: Head is normocephalic. Pupils are equal, round. Sclerae anicteric. Mucous membranes of the mouth are moist. No JVD. No carotid bruit. CHEST EXAMINATION: Lungs are clear to auscultation. No chest wall tenderness is noted on palpation or with deep breathing. HEART EXAMINATION: Irregular rhythm and slow rate. S1, S2 heard. +2/6 systolic murmur, no gallops or rub. ABDOMEN: Soft, nontender. Positive bowel sounds. EXTREMITIES: 2+ peripheral pulses, no lower extremity edema and no calf tenderness. NEUROLOGIC EXAMINATION: Patient is awake, alert and oriented x3. ASSESSMENT 1. Lightheadedness/dizziness related to bradycardia 2. Persistent Atrial fibrillation with slow ventricular rate 3. Symptomatic bradycardia 4. CAD with prior history of CABG 5. Hypertension 6. Hyperlipidemia 7. Mild dementia 8. Diabetes mellitus type 2 9. Urinalysis with leukocyte esterase and white blood cells however no obvious UTI symptoms PLAN Continue to hold any rate controlling medications. Does not appear to be any reversible cause of his bradycardia. Check 2-D echo. Attempt dopamine drip however patient will likely need a permanent pacemaker, possible defibrillator of low ejection fraction. Currently appears somewhat stable and we will continue monitor however if any more significant bradycardia noted we will place a TVP. Unclear significance of urinalysis patient not having any UTI type symptoms. Defer treatment to internal medicine. Further recommendations to follow. 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" History of Any Multi-Drug Resistant Organisms: None Reported Past Surgical History: Heart Catheterization With Stent, Joint Replacement, Orthopedic Surgery Additional Past Surgical History / Comment(s): knee replacement, foot with 12 screws and reconstruction, catarat surgery 12/28/21 Past Anesthesia/Blood Transfusion Reactions: No Reported Reaction Date of Last Stent Placement:: 1992 Past Psychological History: No Psychological Hx Reported Smoking Status: Former smoker Past Alcohol Use History: None Reported Past Drug Use History: None Reported - Past Family History Father Additional Family Medical History / Comment(s): "at age 51 one day woke up not feeling well and had some dizziness and " Medications and Allergies Home Medications Medication Instructions Recorded Confirmed Type Apixaban [Eliquis] 5 mg PO BID 03/12/19 01/15/22 History Atorvastatin [Lipitor] 40 mg PO HS 03/12/19 01/15/22 History Insulin Aspart [NovoLOG Flexpen] See Protocol SQ AC-TID 03/12/19 01/15/22 History Insulin Glargine [Lantus] 35 unit SQ HS 03/12/19 01/15/22 History Losartan Potassium [Cozaar] 25 mg PO DAILY 03/12/19 01/15/22 History Tamsulosin HCl [Flomax] 0.8 mg PO DAILY 03/12/19 01/15/22 History metFORMIN HCL [Glucophage] 1,000 mg PO BID 03/12/19 01/15/22 History Brimonidine Tartrate/Timolol 1 drop BOTH EYES BID 09/25/21 01/15/22 History [Combigan 0.2%-0.5% Eye Drops] Cholecalciferol [Vitamin D3 (125 125 mcg PO DAILY 09/25/21 01/15/22 History Mcg = 5000 Iu)] Dorzolamide HCl/Pf [Dorzolamide 2% 1 drop BOTH EYES BID 09/25/21 01/15/22 History Eye Drop] Fluticasone Nasal [place] [Flonase 2 spr EA NOSTRIL DAILY 09/25/21 01/15/22 History Nasal [place]] Levothyroxine Sodium [Synthroid] 112 mcg PO DAILY 09/25/21 01/15/22 History Netarsudil Mesylat/Latanoprost 1 drop BOTH EYES HS 09/25/21 01/15/22 History [Rocklatan 0.02%-0.005% Eye Drp] Temazepam 7.5 mg PO HS PRN 09/25/21 01/15/22 History Testosterone Cypionate 200 mg IM Q21D 09/25/21 01/15/22 History [Depo-Testosterone] Bromfenac Sodium [Prolensa Ophth 01/15/22 History Soln] Finasteride [Proscar] 5 mg PO DAILY 01/15/22 01/15/22 History Ketorolac 0.5% Ophth Soln [Acular 1 drop LEFT EYE QID 01/15/22 01/15/22 History 0.5%] Prednisolone Acetate/Pf 1 drop LEFT EYE QID 01/15/22 01/15/22 History [Prednisolone Acet 1% Eye Drop] Allergies Allergy/AdvReac Type Severity Reaction Status Date / Time No Known Allergies Allergy Verified 01/15/22 14:44 Physical Exam Vitals: Vital Signs Temp Pulse Pulse Resp BP BP Pulse Ox 01/16/22 03:49 97.3 F L 44 L 18 140/81 98 01/16/22 02:00 46 L 01/16/22 00:00 97.7 F 45 L 18 165/81 97 01/15/22 20:00 98.2 F 47 L 16 159/78 98 01/15/22 19:28 98.2 F 47 L 18 159/78 98 01/15/22 17:57 97.9 F 36 L 27 H 157/78 97 01/15/22 17:00 36 L 157/78 01/15/22 16:00 46 L 27 H 140/93 01/15/22 15:00 41 L 18 165/90 97 01/15/22 14:00 38 L 10 L 156/72 01/15/22 13:43 45 L 01/15/22 13:35 38 L 20 156/72 97 01/15/22 13:00 41 L 11 L 01/15/22 12:00 51 L 20 01/15/22 11:00 44 L 26 H 01/15/22 10:58 40 L 01/15/22 10:56 84 H 01/15/22 10:46 97.9 F 46 L 16 145/77 99 Intake and Output 01/15/22 01/15/22 01/16/22 14:59 22:59 06:59 Intake Total 400 Balance 400 Intake: Intake, IV Titration 400 Amount Sodium Chloride 0.9% 1, 400 000 ml @ 130 mls/hr IV . Q7H42M COUNTS INCLUDE 234 BEDS AT THE [facility] Rx#:[id number] Other: Voiding Method Toilet # Voids 2 2 Weight 90.718 kg 90.718 kg Results 01/15/22 11:07 01/15/22 11:07 Cardiac Enzymes 01/15/22 01/15/22 Range/Units 11:07 11:07 AST 19 (17-59) U/L Troponin I <0.012 (0.000-0.034) ng/mL Coagulation 01/15/22 Range/Units 11:07 PT 11.2 (9.0-12.0) sec APTT 24.7 (22.0-30.0) sec CBC 01/15/22 Range/Units 11:07 WBC 7.7 (3.8-10.6) k/uL RBC 5.10 (4.30-5.90) m/uL Hgb 16.9 (13.0-17.5) gm/dL Hct 49.9 (39.0-53.0) % Plt Count 203 (150-450) k/uL Comprehensive Metabolic Panel 01/15/22 Range/Units 11:07 Sodium 137 (137-145) mmol/L Potassium 4.5 (3.5-5.1) mmol/L Chloride 104 (98-107) mmol/L Carbon Dioxide 25 (22-30) mmol/L BUN 12 (9-20) mg/dL Creatinine 0.78 (0.66-1.25) mg/dL Glucose 126 H (74-99) mg/dL Calcium 8.9 (8.4-10.2) mg/dL AST 19 (17-59) U/L ALT 15 (4-49) U/L Alkaline Phosphatase 61 (38-126) U/L Total Protein 6.5 (6.3-8.2) g/dL Albumin 3.9 (3.5-5.0) g/dL Current Medications Generic Name Dose Route Start Last Admin Trade Name Freq PRN Reason Stop Dose Admin Apixaban 5 mg 01/15/22 21:00 01/15/22 20:38 Apixaban 5 Mg Tab PO 5 mg BID [facility] Administration Protocol Atorvastatin Calcium 40 mg 01/15/22 21:00 01/15/22 20:38 Atorvastatin 40 Mg Tab PO 40 mg HS [facility] Administration Brimonidine Tartrate 1 drops 01/15/22 21:00 01/15/22 21:03 Brimonidine Tartrate 0.2% Drops 5 Ml Btl BOTH EYES 1 drops BID [facility] Administration Cholecalciferol 125 mcg 01/16/22 09:00 Cholecalciferol 125 Mcg (5000 Iu) Tablet PO DAILY [facility] Dorzolamide HCl 1 drops 01/15/22 21:00 01/15/22 21:02 Dorzolamide Hcl 2% Drops 10 Ml Btl BOTH EYES 1 drops BID [facility] Administration Finasteride 5 mg 01/16/22 09:00 Finasteride 5 Mg Tab PO DAILY [facility] Fluticasone Propionate 2 spray 01/16/22 09:00 Fluticasone 50mcg/[place] Nasal 16gm EA NOSTRIL DAILY [facility] Sodium Chloride 1,000 mls @ 50 mls/hr 01/15/22 14:00 01/15/22 21:06 Saline 0.9% IV 130 mls/hr .Q20H [facility] Administration Dopamine HCl/Dextrose 800 mg/ 250 mls @ 8.505 mls/hr 01/16/22 05:45 IV Solution IV .Q24H COUNTS INCLUDE 234 BEDS AT THE [facility] Protocol 5 MCG/KG/MIN Insulin Aspart 0 unit 01/15/22 17:30 01/15/22 20:39 Insulin Aspart (Novolog) 100 Unit/Ml Vial SQ 3 unit ACHS COUNTS INCLUDE 234 BEDS AT THE [facility] Administration Protocol Insulin Detemir 35 unit 01/15/22 21:00 01/15/22 20:38 Insulin Detemir (Levemir) 100 Unit/Ml Syr SQ 35 unit HS COUNTS INCLUDE 234 BEDS AT THE [facility] Administration Levothyroxine Sodium 112 mcg 01/16/22 06:30 Levothyroxine 112 Mcg Tab PO DAILY@0630 COUNTS INCLUDE 234 BEDS AT THE [facility] Losartan Potassium 25 mg 01/16/22 09:00 Losartan 25 Mg Tab PO DAILY COUNTS INCLUDE 234 BEDS AT THE [facility] Naloxone HCl 0.2 mg 01/15/22 15:58 Naloxone 0.4 Mg/Ml 1 Ml Vial IV Q2M PRN Opioid Reversal Non-Formulary Medication 1 drop 01/15/22 21:00 01/15/22 20:37 Netarsudil Mesylat/Latanoprost [Rocklatan 0.02%-0.005% Eye Drp] BOTH EYES Not Given HS COUNTS INCLUDE 234 BEDS AT THE [facility] Ondansetron HCl 4 mg 01/15/22 13:46 Ondansetron 4 Mg/2 Ml Vial IVP Q8HR PRN Nausea And Vomiting Prednisolone Acetate 1 drops 01/15/22 18:00 01/15/22 21:10 Prednisolone Acetate 1% Ophth Drops 5 Ml Btl LEFT EYE Not Given QID COUNTS INCLUDE 234 BEDS AT THE [facility] Tamsulosin HCl 0.8 mg 01/16/22 09:00 Tamsulosin 0.4 Mg Cap.Er.24h PO DAILY COUNTS INCLUDE 234 BEDS AT THE [facility] Timolol Maleate 1 drops 01/15/22 21:00 01/15/22 21:05 Timolol 0.5% Ophth Drops 5 Ml Btl BOTH EYES 1 drops BID COUNTS INCLUDE 234 BEDS AT THE [facility] Administration Intake and Output 01/15/22 01/15/22 01/16/22 14:59 22:59 06:59 Intake Total 400 Balance 400 Intake: Intake, IV Titration 400 Amount Sodium Chloride 0.9% 1, 400 000 ml @ 130 mls/hr IV . Q7H42M COUNTS INCLUDE 234 BEDS AT THE [facility] Rx#:[id number] Other: Voiding Method Toilet # Voids 2 2 Weight 90.718 kg 90.718 kg Patient Weight 01/16/22 06:59 Weight 90.718 kg 01/15/22 11:07 01/15/22 11:07
[2022-01-16] MEDS: DOPamine DRIP 800 MG in DEXTROSE/WATER 1 250ML.BAG IV SCH (05:49)
[2022-01-16] MEDS: SODIUM CHLORIDE 0.9% 1,000 ML IV SCH (05:52)
[2022-01-16 06:42] LABS: Glucose,Whole Blood 76 mg/dL (70-110)
[2022-01-16] MEDS: LEVOTHYROXINE 112 MCG TAB PO SCH (07:02)
[2022-01-16] MEDS: INSULIN ASPART (NovoLOG) 100 UNIT/ML VIAL SQ SCH ×4 (07:05→21:27)
[2022-01-16] MEDS: ONDANSETRON 4 MG/2 ML VIAL IVP PRN ×2 (08:29→17:23)
[2022-01-16] MEDS: LOSARTAN 25 MG TAB PO SCH (09:30)
[2022-01-16] MEDS: TAMSULOSIN 0.4 MG CAP.ER.24H PO SCH (09:30)
[2022-01-16] MEDS: FINASTERIDE 5 MG TAB PO SCH (09:30)
[2022-01-16] MEDS: APIXABAN 5 MG TAB PO SCH ×2 (09:30→20:48)
[2022-01-16] MEDS: CHOLECALCIFEROL 125 MCG (5000 IU) TABLET PO SCH (09:30)
[2022-01-16] MEDS: BRIMONIDINE TARTRATE 0.2% DROPS 5 ML BTL BOTH EYES SCH ×2 (09:32→20:48)
[2022-01-16] MEDS: TIMOLOL 0.5% OPHTH DROPS 5 ML BTL BOTH EYES SCH ×2 (09:33→20:49)
[2022-01-16] MEDS: DORZOLAMIDE HCL 2% DROPS 10 ML BTL BOTH EYES SCH ×2 (09:33→20:49)
[2022-01-16] MEDS: prednisoLONE ACETATE 1% OPHTH DROPS 5 ML BTL LEFT EYE SCH ×4 (09:33→20:48)
[2022-01-16] MEDS: FLUTICASONE 50MCG/SPRAY NASAL 16GM EA NOSTRIL SCH (09:33)
[2022-01-16 10:40] LABS: Basophils # (A) 0.1 k/uL (0-0.2); Basophils % (A) 1 %; Eosinophils # (A) 0.1 k/uL (0-0.7); Eosinophils % (A) 1 %; HCT 49.9 % (39.0-53.0); HGB 16.6 gm/dL (13.0-17.5); Lymphocytes # (A) 1.1 k/uL (1.0-4.8); Lymphocytes % (A) 8 %; MCH 32.9 pg (25.0-35.0); MCHC 33.3 g/dL (31.0-37.0); MCV 98.9 fL (80.0-100.0); Mean Platelet Volume 7.6; Monocytes % (A) 7 %; Neutrophils # (A) 11.3 k/uL (1.3-7.7); Neutrophils % (A) 83 %; Platelet Count 232 k/uL (150-450); RBC 5.05 m/uL (4.30-5.90); RDW 13.2 % (11.5-15.5); WBC 13.6 k/uL (3.8-10.6)
[2022-01-16 11:04] LABS: ALT 15 U/L (4-49); AST 21 U/L (17-59); African American GFR (CKD) >90 (>60 ml/min/1.73 sqM); Albumin 3.7 g/dL (3.5-5.0); Alkaline Phosphatase 67 U/L (38-126); Anion Gap 6 mmol/L; Blood Urea Nitrogen 11 mg/dL (9-20); Calcium 8.8 mg/dL (8.4-10.2); Carbon Dioxide 30 mmol/L (22-30); Chloride 104 mmol/L (98-107); Glucose 181 mg/dL (74-99); Magnesium 1.5 mg/dL (1.6-2.3); Non-African American GFR(CKD) 84 (>60 ml/min/1.73 sqM); Potassium 4.3 mmol/L (3.5-5.1); Sodium 140 mmol/L (137-145); Total Bilirubin 0.8 mg/dL (0.2-1.3); Total Protein 6.2 g/dL (6.3-8.2)
--- NOTE | 2022-01-16 11:16 | CA ---
Transthoracic Echo Report Name: Felipe Moon Age: 81 Gender: M : 1940 Exam Date: 01/16/2022 09:15 Exam Location: [facility] Ht (in): 70 Wt (lb): 200 Ordering Physician: Can Giles DO ([email or web address]) Attending/Referring Phys: Slp Brittany Whitt RDCS Procedure CPT: Indications: re: LV function Cardiac Hx: Technical Quality: Good Contrast 1: Total Dose (mL): Contrast 2: Total Dose (mL): MEASUREMENTS (Male / Female) Normal Values 2D ECHO LV Diastolic Diameter PLAX 3.8 cm 4.2 - 5.9 / 3.9 - 5.3 cm LV Systolic Diameter PLAX 2.3 cm IVS Diastolic Thickness 1.4 cm 0.6 - 1.0 / 0.6 - 0.9 cm LVPW Diastolic Thickness 1.7 cm 0.6 - 1.0 / 0.6 - 0.9 cm LV Relative Wall Thickness 0.8 RV Internal Dim ED PLAX 3.1 cm LVOT Diameter 1.7 cm LA Volume 75.8 cm??? 18 - 58 / 22 - 52 cm??? M-MODE Aortic Root Diameter MM 3.5 cm LA Systolic Diameter MM 4.7 cm LA Ao Ratio MM 1.3 MV E Point Septal Separation 2.4 cm AV Cusp Separation MM 1.3 cm DOPPLER AV Peak Velocity 255.5 cm/s AV Peak Gradient 26.1 mmHg AV Mean Velocity 200.6 cm/s AV Mean Gradient 17.4 mmHg AV Velocity Time Integral 51.8 cm LVOT Peak Velocity 108.1 cm/s LVOT Peak Gradient 4.7 mmHg AV Area Cont Eq pk 0.9 cm??? MV Area PHT 2.4 cm??? Mitral E Point Velocity 153.6 cm/s Mitral A Point Velocity 35.7 cm/s Mitral E to A Ratio 4.3 MV Deceleration Time 313.3 ms MV E' Velocity 7.1 cm/s Mitral E to MV E' Ratio 21.8 TR Peak Velocity 171.3 cm/s TR Peak Gradient 11.7 mmHg Right Ventricular Systolic Press 16.7 mmHg FINDINGS Left Ventricle Moderately increased septal wall thickness. Grade 2 diastolic dysfunction. Left ventricular cavity size normal. Left ventricular ejection fraction is estimated at 55-60 %. Right Ventricle The right ventricle is normal in size and function. Right Atrium The right atrium is normal in size. The right atrium is normal in size. Left Atrium Moderately increased left atrial volume. Mildly increased left atrial area. Mitral Valve Mitral valve thickened. Mild mitral regurgitation. Aortic Valve Diffuse thickening of the aortic valve cusps with reduced excursion. Moderate aortic stenosis with a peak gradient of 26mmHg and a mean gradient of 17 mmHg. . There is no aortic regurgitation. Tricuspid Valve Structurally normal tricuspid valve without significant stenosis. Pulmonary artery systolic pressure is normal. Mild tricuspid regurgitation. Pulmonic Valve Structurally normal pulmonic valve without significant stenosis. There is no pulmonic regurgitation. Pericardium Normal pericardium without effusion. Aorta Normal aortic root dimension. CONCLUSIONS Normal left ventricular ejection fraction 55-60% Grade 2 diastolic dysfunction Moderate aortic stenosis Mild mitral regurgitation No pericardial effusion Previewed by: Dr. Can Giles DO (Electronically Signed) Final Date: 16 January 2022 11:15
[2022-01-16 11:54] LABS: Glucose,Whole Blood 186 mg/dL (70-110)
[2022-01-16] MEDS: MAGNESIUM SULFATE-D5W PMX 1 GM in DEXTROSE/WATER 1 100ML.BAG IVPB SCH ×2 (12:28→13:31)
--- NOTE | 2022-01-16 15:26 | P.PN ---
Subjective Progress Note Date: 01/16/22 Principal diagnosis: Bradycardia Patient states that as long as he is in bed he does not feel any dizziness but if he gets up he starts experiencing lightheadedness. He is feeling weak as well. No chills. No chest pain. No nausea or vomiting. Objective - Vital Signs Vital signs: Vital Signs Temp 98.2 F 01/16/22 12:51 Pulse 46 L 01/16/22 12:51 Resp 18 01/16/22 12:51 BP 151/64 01/16/22 12:51 Pulse Ox 93 L 01/16/22 12:51 FiO2 Intake & Output 01/15/22 01/16/22 01/16/22 18:59 06:59 18:59 Intake Total 400 930 Balance 400 930 Weight 90.718 kg 90.718 kg Intake: Intake, IV Titration 400 450 Amount Magnesium Sulfate-D5w Pmx 100 1 gm In Dextrose/Water 1 100ml.bag @ 100 mls/hr IVPB Q1H [facility] Rx#: [id number] Sodium Chloride 0.9% 1, 400 350 000 ml @ 50 mls/hr IV . Q20H [facility] Rx#:[id number] Oral 480 Other: Voiding Method Toilet # Voids 2 - Exam Constitutional: No acute distress, conversant, pleasant Eyes:Anicteric sclerae, moist conjunctiva, no lid-lag, PERRLA, ENMT: Oropharynx clear, no erythema, exudates Neck: Supple, FROM, no masses, or JVD, No carotid bruits, No thyromegaly Lungs: Clear to auscultation, Clear to percussion, Normal respiratory effort, no accessory muscle use Cardiovascular: Bradycardic, irregular, No murmurs, gallops, or rubs, 1+ peripheral edema Abdominal: Soft, Nontender, no guarding, rebound or rigidity, Normoactive bowel sounds, No hepatomegaly, No splenomegaly, No palpable mass Skin: Normal temperature, tone, texture, turgor, no induration, No subcutaneous nodules, No rash, lesions, No ulcers Extremities: No digital cyanosis, No clubbing, Pedal pulses intact and symmetrical, Radial pulses intact and symmetrical, No calf tenderness Psychiatric: Alert and oriented to person, place and time, appropriate affect, intact judgement Neuro: Muscles Strength 5/5 in all 4 extremities, Sensation to light touch grossly present throughout, Cranial nerves II-XII grossly intact, no focal sensory deficits - Labs CBC & Chem 7: 01/16/22 10:04 01/16/22 10:04 Labs: Abnormal Lab Results - Last 24 Hours (Table) 01/15/22 01/15/22 01/15/22 Range/Units 11:05 17:34 19:45 WBC (3.8-10.6) k/uL Neutrophils # (1.3-7.7) k/uL Glucose (74-99) mg/dL POC Glucose (mg/dL) 119 H 177 H (70-110) mg/dL Magnesium (1.6-2.3) mg/dL Total Protein (6.3-8.2) g/dL Urine Protein 1+ H (Negative) Urine Glucose (UA) 2+ H (Negative) Ur Leukocyte Esterase Large H (Negative) Urine WBC 95 H (0-5) /hpf Urine Bacteria Rare H (None) /hpf Urine Mucus Rare H (None) /hpf 01/16/22 01/16/22 01/16/22 Range/Units 10:04 10:04 11:53 WBC 13.6 H (3.8-10.6) k/uL Neutrophils # 11.3 H (1.3-7.7) k/uL Glucose 181 H (74-99) mg/dL POC Glucose (mg/dL) 186 H (70-110) mg/dL Magnesium 1.5 L (1.6-2.3) mg/dL Total Protein 6.2 L (6.3-8.2) g/dL Urine Protein (Negative) Urine Glucose (UA) (Negative) Ur Leukocyte Esterase (Negative) Urine WBC (0-5) /hpf Urine Bacteria (None) /hpf Urine Mucus (None) /hpf Microbiology - Last 24 Hours (Table) 01/15/22 11:05 Urine Culture - Preliminary Urine,Voided Assessment and Plan Plan: Presyncope Bradycardia likely SSS with hx of a-fib Seen by cardiology, planning pacemaker Tuesday. Discussed with Dr. Giles. Pacing pads at the bedside, atropine as well Continue eliquis DM 2 SSI Resume home lantus Hypothyroidism TSH within normal limits Continue replacement Hypomagnesemia Replace HTN Hyperlipidemia Stable resume meds DVT prophylaxis On ac resume
[2022-01-16 16:55] LABS: Glucose,Whole Blood 169 mg/dL (70-110)
[2022-01-16] MEDS: ATORVASTATIN 40 MG TAB PO SCH (20:47)
[2022-01-16] MEDS: INSULIN DETEMIR (LEVEMIR) 100 UNIT/ML SYR SQ SCH (20:48)
[2022-01-16] MEDS: NON FORMULARY DRUG (Netarsudil Mesylat/Latanoprost [Rocklatan 0.02%-0.005% Eye Drp] 2.5 ML BOTH EYES SCH (20:50)
[2022-01-16 21:15] LABS: Glucose,Whole Blood 112 mg/dL (70-110)
[2022-01-16] MEDS ORDERED: ATROPINE SULFATE 0.1 MG/ML 10ML SYRINGE ONE (21:16)
--- NOTE | 2022-01-16 22:32 | P.PN ---
Progress Note - Text Nursing called regarding patient feeling more nauseous and overall not feeling well with additional headache. Unclear if this is related to dopamine side effect or other. HR's have been in the 40's and does not appear related to bradycardia. We will hold Dopamine temporarily and monitor for response. Rule out other etiology of fatigue, nausea with additional urinalysis showing UTI. Check procalcitonin, as well as lactic acid, blood cultures for completeness and begin antibiotics for now with elevated WBC/ SIRS. If no significant infection, we will proceed with PPM likely tuesday. If patient decompensates, will place TVP however appears hemodyanamically stable currently.
[2022-01-16] MEDS ORDERED: ASPIRIN 81 MG PO STA (23:33)
[2022-01-16] MEDS ORDERED: HEPARIN SOD,PORK IN 0.45% NACL 25,000 UNIT in 0.45% NACL 1 250ML.BAG IV SCH (23:45)
[2022-01-17] MEDS: SODIUM CHLORIDE 0.9% 1,000 ML IV SCH ×2 (00:51→20:07)
[2022-01-17] MEDS: DOPamine DRIP 800 MG in DEXTROSE/WATER 1 250ML.BAG IV SCH ×2 (05:16→22:00)
[2022-01-17 06:31] LABS: Basophils # (A) 0.1 k/uL (0-0.2); Basophils % (A) 1 %; Eosinophils # (A) 0.2 k/uL (0-0.7); Eosinophils % (A) 1 %; HCT 48.5 % (39.0-53.0); HGB 16.1 gm/dL (13.0-17.5); Lymphocytes # (A) 2.9 k/uL (1.0-4.8); Lymphocytes % (A) 20 %; MCH 32.9 pg (25.0-35.0); MCHC 33.3 g/dL (31.0-37.0); MCV 98.8 fL (80.0-100.0); Mean Platelet Volume 7.7; Monocytes # (A) 1.2 k/uL (0-1.0); Monocytes % (A) 8 %; Neutrophils # (A) 10.1 k/uL (1.3-7.7); Neutrophils % (A) 69 %; Platelet Count 257 k/uL (150-450); RBC 4.91 m/uL (4.30-5.90); RDW 13.3 % (11.5-15.5); WBC 14.7 k/uL (3.8-10.6)
[2022-01-17] MEDS: INSULIN ASPART (NovoLOG) 100 UNIT/ML VIAL SQ SCH ×4 (06:37→20:25)
[2022-01-17 06:39] LABS: African American GFR (CKD) >90 (>60 ml/min/1.73 sqM); Albumin 3.6 g/dL (3.5-5.0); Anion Gap 2 mmol/L; Blood Urea Nitrogen 12 mg/dL (9-20); Calcium 8.6 mg/dL (8.4-10.2); Carbon Dioxide 32 mmol/L (22-30); Chloride 104 mmol/L (98-107); Non-African American GFR(CKD) 82 (>60 ml/min/1.73 sqM); Phosphorus 3.7 mg/dL (2.5-4.5); Potassium 3.7 mmol/L (3.5-5.1); Sodium 138 mmol/L (137-145)
[2022-01-17] MEDS: LEVOTHYROXINE 112 MCG TAB PO SCH (06:40)
[2022-01-17 06:43] LABS: Glucose,Whole Blood 51 mg/dL (70-110)
[2022-01-17 06:43] LABS: Glucose,Whole Blood 53 mg/dL (70-110)
[2022-01-17 06:51] LABS: Glucose 48 mg/dL (74-99)
[2022-01-17 06:58] LABS: Glucose,Whole Blood 84 mg/dL (70-110)
[2022-01-17] MEDS: DORZOLAMIDE HCL 2% DROPS 10 ML BTL BOTH EYES SCH ×2 (08:16→20:10)
[2022-01-17] MEDS: TIMOLOL 0.5% OPHTH DROPS 5 ML BTL BOTH EYES SCH ×2 (08:16→20:09)
[2022-01-17] MEDS: ASPIRIN 81 MG PO SCH (08:16)
[2022-01-17] MEDS: FINASTERIDE 5 MG TAB PO SCH (08:17)
[2022-01-17] MEDS: CHOLECALCIFEROL 125 MCG (5000 IU) TABLET PO SCH (08:17)
[2022-01-17] MEDS: LOSARTAN 25 MG TAB PO SCH (08:17)
[2022-01-17] MEDS: TAMSULOSIN 0.4 MG CAP.ER.24H PO SCH (08:17)
[2022-01-17] MEDS: BRIMONIDINE TARTRATE 0.2% DROPS 5 ML BTL BOTH EYES SCH ×2 (08:18→20:10)
[2022-01-17] MEDS: FLUTICASONE 50MCG/SPRAY NASAL 16GM EA NOSTRIL SCH (08:19)
[2022-01-17] MEDS: prednisoLONE ACETATE 1% OPHTH DROPS 5 ML BTL LEFT EYE SCH ×4 (08:19→20:10)
[2022-01-17] MEDS ORDERED: VERAPAMIL 2.5 MG/ML 2 ML AMP ONE (09:42)
[2022-01-17] MEDS ORDERED: fentaNYL (PF) 50 MCG/ML 2 ML AMP ONE (10:06)
[2022-01-17] MEDS ORDERED: HEPARIN SODIUM 1,000 UN/ML (10ML VL) ONE (10:06)
[2022-01-17] MEDS ORDERED: IV FLUID CONTINUATION 200 ML IV ONE (10:24)
[2022-01-17] MEDS ORDERED: LIDOCAINE 1% INJ 10MG/ML (5 ML VIAL-PF) SQ ONE (10:31)
[2022-01-17] MEDS ORDERED: VERAPAMIL SYRINGE (5 MG/10 ML) INTRAARTER ONE (10:36)
[2022-01-17] MEDS: HEPARIN SODIUM 1,000 UN/ML (10ML VL) IV ONE ×4 (10:42→11:42)
[2022-01-17] MEDS ORDERED: IOPAMIDOL-370 100ML BTL INJ ONE ×2 (11:04→12:26)
[2022-01-17] MEDS ORDERED: CLOPIDOGREL 75 MG TAB ONE (11:08)
[2022-01-17] MEDS ORDERED: CLOPIDOGREL 75 MG TAB PO ONE (11:11)
--- NOTE | 2022-01-17 11:21 | P.PN ---
Subjective Progress Note Date: 01/17/22 Principal diagnosis: Bradycardia Patient still feeling dizzy and weak. He admits to urinary urgency and frequency but no dysuria. No fevers or chills. No abdominal pain, no nausea or vomiting. No chest pain. Objective - Vital Signs Vital signs: Vital Signs Temp 97.9 F 01/17/22 08:10 Pulse 46 L 01/17/22 08:10 Resp 18 01/17/22 08:10 BP 138/78 01/17/22 08:10 Pulse Ox 96 01/17/22 08:10 FiO2 Intake & Output 01/16/22 01/17/22 01/17/22 18:59 06:59 18:59 Intake Total 1170 194.950 Output Total 400 Balance 1170 -205.050 Intake: Intake, IV Titration 450 194.950 Amount DOPamine DRIP 800 mg In 130.694 Dextrose/Water 1 250ml. bag @ 5 MCG/KG/MIN 8.505 mls/hr IV .Q24H [facility] Rx#: [id number] Heparin Sod,Pork in 0.45% 64.256 NaCl 25,000 unit In 0.45 % NaCl 1 250ml.bag @ 11. 01 UNITS/KG/HR 9.988 mls/ hr IV .Q24H [facility] Rx#: [id number] Magnesium Sulfate-D5w Pmx 100 1 gm In Dextrose/Water 1 100ml.bag @ 100 mls/hr IVPB Q1H [facility] Rx#: [id number] Sodium Chloride 0.9% 1, 350 000 ml @ 50 mls/hr IV . Q20H [facility] Rx#:[id number] Oral 720 Output: Urine 400 Other: Voiding Method Toilet Urinal # Voids 1 - Exam Constitutional: No acute distress, conversant, pleasant Eyes:Anicteric sclerae, moist conjunctiva, no lid-lag, PERRLA, ENMT: Oropharynx clear, no erythema, exudates Neck: Supple, FROM, no masses, or JVD, No carotid bruits, No thyromegaly Lungs: Clear to auscultation, Clear to percussion, Normal respiratory effort, no accessory muscle use Cardiovascular: Bradycardic, irregular, No murmurs, gallops, or rubs, 1+ peripheral edema Abdominal: Soft, Nontender, no guarding, rebound or rigidity, Normoactive bowel sounds, No hepatomegaly, No splenomegaly, No palpable mass Skin: Normal temperature, tone, texture, turgor, no induration, No subcutaneous nodules, No rash, lesions, No ulcers Extremities: No digital cyanosis, No clubbing, Pedal pulses intact and symmetrical, Radial pulses intact and symmetrical, No calf tenderness Psychiatric: Alert and oriented to person, place and time, appropriate affect, intact judgement Neuro: Muscles Strength 5/5 in all 4 extremities, Sensation to light touch grossly present throughout, Cranial nerves II-XII grossly intact, no focal sensory deficits - Labs CBC & Chem 7: 01/17/22 06:07 01/17/22 06:07 Labs: Abnormal Lab Results - Last 24 Hours (Table) 01/16/22 01/16/22 01/16/22 Range/Units 11:53 16:54 21:09 WBC (3.8-10.6) k/uL Neutrophils # (1.3-7.7) k/uL Monocytes # (0-1.0) k/uL APTT (22.0-30.0) sec Carbon Dioxide (22-30) mmol/L Glucose (74-99) mg/dL POC Glucose (mg/dL) 186 H 169 H 112 H (70-110) mg/dL Troponin I (0.000-0.034) ng/mL 01/16/22 01/17/22 01/17/22 Range/Units 22:05 00:26 06:07 WBC 14.7 H (3.8-10.6) k/uL Neutrophils # 10.1 H (1.3-7.7) k/uL Monocytes # 1.2 H (0-1.0) k/uL APTT (22.0-30.0) sec Carbon Dioxide (22-30) mmol/L Glucose (74-99) mg/dL POC Glucose (mg/dL) (70-110) mg/dL Troponin I 3.210 H* 3.580 H* (0.000-0.034) ng/mL 01/17/22 01/17/22 01/17/22 Range/Units 06:07 06:07 06:07 WBC (3.8-10.6) k/uL Neutrophils # (1.3-7.7) k/uL Monocytes # (0-1.0) k/uL APTT 33.7 H (22.0-30.0) sec Carbon Dioxide 32 H (22-30) mmol/L Glucose 48 L* (74-99) mg/dL POC Glucose (mg/dL) (70-110) mg/dL Troponin I 3.130 H* (0.000-0.034) ng/mL 01/17/22 01/17/22 Range/Units 06:32 06:34 WBC (3.8-10.6) k/uL Neutrophils # (1.3-7.7) k/uL Monocytes # (0-1.0) k/uL APTT (22.0-30.0) sec Carbon Dioxide (22-30) mmol/L Glucose (74-99) mg/dL POC Glucose (mg/dL) 53 L 51 L (70-110) mg/dL Troponin I (0.000-0.034) ng/mL Microbiology - Last 24 Hours (Table) 01/15/22 11:05 Urine Culture - Preliminary Urine,Voided Group D Enterococcus Assessment and Plan Plan: Presyncope Bradycardia likely SSS with hx of a-fib Echocardiogram showing normal EF, moderate aortic stenosis, grade 2 diastolic dysfunction Seen by cardiology, planning TVP today. Continue eliquis Non-ST elevation myocardial infarction Likely secondary to above Heparin drip UTI Started on ceftriaxone Urine cultures growing group D streptococcus Leukocytosis Likely secondary to UTI Blood cultures and procalcitonin ordered DM 2 with hypoglycemia SSI Hold lantus Hypothyroidism TSH within normal limits Continue replacement Hypomagnesemia Replace HTN Hyperlipidemia Stable resume meds DVT prophylaxis On ac
[2022-01-17] MEDS ORDERED: IOPAMIDOL-370 125ML BTL INJ ONE (11:34)
[2022-01-17] MEDS ORDERED: fentaNYL (PF) 50 MCG/ML 2 ML AMP IV ONE (11:46)
[2022-01-17] MEDS: MIDAZOLAM 2 MG/2 ML VIAL IV ONE ×2 (11:46→11:58)
[2022-01-17] MEDS ORDERED: SODIUM CHLORIDE 0.9% 500 ML 500 ML IV ONE (11:58)
[2022-01-17] MEDS ORDERED: NITROGLYCERIN 1000MCG/10ML SYRINGE IV ONE (12:16)
[2022-01-17] MEDS ORDERED: ATROPINE SULFATE 0.1 MG/ML 10ML SYRINGE IV PRN (13:06)
[2022-01-17] MEDS ORDERED: RX INFO: IV CONTRAST WAS GIVEN 1 EACH MISC MISCELLANE PRN (13:06)
[2022-01-17] MEDS ORDERED: MAG HYDROX/AL HYDROX/SIMETH 30 ML CUP PO PRN (13:06)
[2022-01-17] MEDS ORDERED: NITROGLYCERIN SL TABS 0.4 MG TAB SUBLINGUAL PRN (13:06)
[2022-01-17] MEDS ORDERED: ZOLPIDEM 5 MG TAB PO PRN (13:06)
--- NOTE | 2022-01-17 13:06 | P.PN ---
Subjective HISTORY OF PRESENTING ILLNESS Patient is pleasant 81-year-old male with history of diabetes mellitus type 2, CAD with prior PCI as well as CABG, atrial fibrillation, hypertension, questionable mild dementia, cataracts who presents secondary to multiple episodes of dizziness and lightheadedness. Patient somewhat of a poor historian however has been having generalized weakness and dizziness for the past week. He denies any inciting events or new medications. He does not take any rate controlling medications. His medication list was apparently verified by . He was started on timolol eyedrops secondary recent eye surgery however not ty pical to be absorbed systemically. He does have a history of bypass however currently is not followed with a hog ribber in 20-25 years. Does have a history of atrial fibrillation and is anticoagulated on Eliquis. EKG shows atrial fibrillation with heart rate 46 bpm, Q waves inferiorly, Q waves anterior septal without significant ST or T wave abnormalities. He denies any chest pain or pressure. Blood work shows hemoglobin 16.9, creatinine 0.78, troponin was and 0.012, proBNP 1620. Urinalysis did show large leukocyte esterase and 95 white blood cells however denies any recent fevers, chills, dysuria. Telemetry has shown persistent bradycardia with heart rates mainly in the high 30s and up to high 40s. 01/17 Patient seen and examined. Patient having episodes of feeling nauseous and upset stomach yesterday thought may be related to dopamine and therefore dopamine was discontinued. Thought possibly related to metabolic etiology and therefore repeat blood work was performed including blood cultures and patient was started on Rocephin. Has noted to have continued white blood cell count. Troponins however noted to be much more elevated up to 3. Echocardiogram performed yesterday shows EF 55-60% with moderate aortic stenosis and mild mitral regurgitation. Spoke with patient's and admits patient has not really been himself and somewhat slow to answer and confused since back surgery in September. This appears to be his baseline in terms of some confusion since September. Heart rates have remained in the 40s to 50's off of dopamine. admits that patient's heart rate normally more in the 50s. The few episodes he had he would feel lightheaded and break out in a sweat and may be more related to acute coronary syndrome then bradycardia. Additionally noted to be hyp oglycemic and some of episodes could be related to hypoglycemia as well. PHYSICAL EXAMINATION Vital signs reviewed. CONSTITUTIONAL: No apparent distress. HEENT: Head is normocephalic. Pupils are equal, round. Sclerae anicteric. Mucous membranes of the mouth are moist. No JVD. No carotid bruit. CHEST EXAMINATION: Lungs are clear to auscultation. No chest wall tenderness is noted on palpation or with deep breathing. HEART EXAMINATION: Irregular rhythm and slow rate. S1, S2 heard. +2/6 systolic murmur, no gallops or rub. ABDOMEN: Soft, nontender. Positive bowel sounds. EXTREMITIES: 2+ peripheral pulses, no lower extremity edema and no calf tenderness. NEUROLOGIC EXAMINATION: Patient is awake, alert and oriented x3. ASSESSMENT 1. Lightheadedness/dizziness may be related to bradycardia versus episodes of angina, ACS versus less likely hypoglycemic episodes etc. 2. Persistent Atrial fibrillation with slow ventricular rate 3. Symptomatic bradycardia 4. CAD with prior history of CABG 5. Hypertension 6. Hyperlipidemia 7. Mild dementia 8. Diabetes mellitus type 2 9. UTI 10. Non-STEMI, possible nausea angina symptoms. Status post PCI 01/17 of circumflex/OM1 11. Moderate aortic stenosis 12. Coronary artery disease with residual 90% distal RCA and 90% CEDENO to mid LAD PLAN Patient with complex presentation of a few episodes of feeling lightheaded and breaking out in sweats. Additionally has been confused since September with possibility of prior stroke versus other. Currently neurologically appears to be at his baseline. Patient with nausea episodes which may be his angina and increasing troponins initially normal and then up into the 3 range. This could be type II mechanism related to bradycardia however concern of type I mechanism with resultant bradycardia. admits heart rates normally in the 50s for last few months. Heart catheterization was performed which showed 90% distal RCA and patent CEDENO to LAD however more distal CEDENO to LAD mid LAD 90% stenosis as well as what appeared to be a culprit lesion 95% proximal circumflex. The circumflex does feed the AV groove and a sinoatrial branch and this could be causing some of his bradycardia. Underwent successful atherectomy and PCI of circumflex. Continue with heparin drip and Plavix. Monitor response of stenting to see if heart rates improve. May consider PCI of RCA or CEDENO to LAD. Further recommendations to follow. Objective - Vital Signs Vital signs: Vital Signs Temp 97.9 F 01/17/22 08:10 Pulse 46 L 07/10/22 08:10 Resp 18 01/17/22 08:10 BP 138/78 01/17/22 08:10 Pulse Ox 96 01/17/22 08:10 FiO2 Intake & Output 01/16/22 01/17/22 01/17/22 18:59 06:59 18:59 Intake Total 1170 194.950 350 Output Total 400 Balance 1170 -205.050 350 Intake: IV 350 Intake, IV Titration 450 194.950 Amount DOPamine DRIP 800 mg In 130.694 Dextrose/Water 1 250ml. bag @ 5 MCG/KG/MIN 8.505 mls/hr IV .Q24H [facility] Rx#: [id number] Heparin Sod,Pork in 0.45% 64.256 NaCl 25,000 unit In 0.45 % NaCl 1 250ml.bag @ 11. 01 UNITS/KG/HR 9.988 mls/ hr IV .Q24H [facility] Rx#: [id number] Magnesium Sulfate-D5w Pmx 100 1 gm In Dextrose/Water 1 100ml.bag @ 100 mls/hr IVPB Q1H [facility] Rx#: [id number] Sodium Chloride 0.9% 1, 350 000 ml @ 50 mls/hr IV . Q20H [facility] Rx#:[id number] Oral 720 Output: Urine 400 Other: Voiding Method Toilet Urinal # Voids 1 - Labs CBC & Chem 7: 01/17/22 06:07 01/17/22 06:07 Labs: Abnormal Lab Results - Last 24 Hours (Table) 01/16/22 01/16/22 01/16/22 Range/Units 16:54 21:09 22:05 WBC (3.8-10.6) k/uL Neutrophils # (1.3-7.7) k/uL Monocytes # (0-1.0) k/uL APTT (22.0-30.0) sec Carbon Dioxide (22-30) mmol/L Glucose (74-99) mg/dL POC Glucose (mg/dL) 169 H 112 H (70-110) mg/dL Troponin I 3.210 H* (0.000-0.034) ng/mL 01/17/22 01/17/22 01/17/22 Range/Units 00:26 06:07 06:07 WBC 14.7 H (3.8-10.6) k/uL Neutrophils # 10.1 H (1.3-7.7) k/uL Monocytes # 1.2 H (0-1.0) k/uL APTT (22.0-30.0) sec Carbon Dioxide 32 H (22-30) mmol/L Glucose 48 L* (74-99) mg/dL POC Glucose (mg/dL) (70-110) mg/dL Troponin I 3.580 H* (0.000-0.034) ng/mL 01/17/22 01/17/22 01/17/22 Range/Units 06:07 06:07 06:32 WBC (3.8-10.6) k/uL Neutrophils # (1.3-7.7) k/uL Monocytes # (0-1.0) k/uL APTT 33.7 H (22.0-30.0) sec Carbon Dioxide (22-30) mmol/L Glucose (74-99) mg/dL POC Glucose (mg/dL) 53 L (70-110) mg/dL Troponin I 3.130 H* (0.000-0.034) ng/mL 01/17/22 Range/Units 06:34 WBC (3.8-10.6) k/uL Neutrophils # (1.3-7.7) k/uL Monocytes # (0-1.0) k/uL APTT (22.0-30.0) sec Carbon Dioxide (22-30) mmol/L Glucose (74-99) mg/dL POC Glucose (mg/dL) 51 L (70-110) mg/dL Troponin I (0.000-0.034) ng/mL Microbiology - Last 24 Hours (Table) 01/15/22 11:05 Urine Culture - Preliminary Urine,Voided Group D Enterococcus
[2022-01-17 13:09] LABS: Glucose,Whole Blood 51 mg/dL (70-110)
[2022-01-17 13:24] LABS: Glucose,Whole Blood 60 mg/dL (70-110)
[2022-01-17 13:41] LABS: Glucose,Whole Blood 66 mg/dL (70-110)
[2022-01-17 13:58] LABS: Glucose,Whole Blood 102 mg/dL (70-110)
[2022-01-17 17:17] LABS: Glucose,Whole Blood 179 mg/dL (70-110)
[2022-01-17 19:54] LABS: Basophils % (A) 0 %; Eosinophils # (A) 0.1 k/uL (0-0.7); Eosinophils % (A) 1 %; HCT 46.5 % (39.0-53.0); HGB 15.2 gm/dL (13.0-17.5); Lymphocytes # (A) 1.7 k/uL (1.0-4.8); Lymphocytes % (A) 18 %; MCH 32.6 pg (25.0-35.0); MCHC 32.7 g/dL (31.0-37.0); MCV 99.7 fL (80.0-100.0); Mean Platelet Volume 7.9; Monocytes # (A) 0.9 k/uL (0-1.0); Monocytes % (A) 9 %; Neutrophils # (A) 6.4 k/uL (1.3-7.7); Neutrophils % (A) 69 %; Platelet Count 181 k/uL (150-450); RBC 4.67 m/uL (4.30-5.90); RDW 13.7 % (11.5-15.5); WBC 9.3 k/uL (3.8-10.6)
[2022-01-17 20:00] LABS: Partial Thromboplastin Time 24.6 sec (22.0-30.0); Prothrombin Time 11.3 sec (9.0-12.0)
[2022-01-17] MEDS: ATORVASTATIN 40 MG TAB PO SCH (20:07)
[2022-01-17] MEDS: HEPARIN SOD,PORK IN 0.45% NACL 25,000 UNIT in 0.45% NACL 1 250ML.BAG IV SCH ×2 (20:08→20:09)
[2022-01-17 20:09] LABS: Poikilocytosis (M) Present
[2022-01-17] MEDS: NON FORMULARY DRUG (Netarsudil Mesylat/Latanoprost [Rocklatan 0.02%-0.005% Eye Drp] 2.5 ML BOTH EYES SCH (20:11)
[2022-01-17 20:23] LABS: Glucose,Whole Blood 173 mg/dL (70-110)
--- NOTE | 2022-01-17 23:05 | P.PRCINT ---
Percutaneous Coronary Int. - Percutaneous Coronary Intervention Percutaneous Coronary Intervention: PROCEDURES PERFORMED: Bilateral coronary angiography, aortic root angiography, CEDENO to LAD angiography, PCI circumflex into OM1 with overlapping 3.5 x 30 mm and 3.5 x 23 mm Xience ALEIDA post dilated with a 4.0 NC balloon, balloon angioplasty circumflex with 2.25 x 12mm balloon, atherectomy circumflex, TVP placement INDICATION: NSTEMI HISTORY: Patient is pleasant 81-year-old male with history of one-vessel bypass with CEDENO to LAD, atrial fibrillation who presented with episodes of feeling lightheaded and diaphoretic or last week. He was found to be bradycardic with heart rates in the 30s to 40s. Initial troponin noted to be normal however then elevated. Patient was having episodes feeling nauseous. Given non-STEMI recommendations were for heart catheterization and given bradycardia TVP placement. CONSENT:I have discussed the risks, benefits and alternative therapies for the above-mentioned procedure and for both sedation/analgesia as well as necessary blood product administration, if indicated, as they pertain to this patient. The patient has indicated understanding and acceptance of the risks and procedures discussed. PROCEDURE: After the risks, benefits and alternatives of the above mentioned procedure explained in detail with the patient, informed consent was obtained. Patient was taken to the catheterization lab and prepped and draped in usual fashion. 1% lidocaine was used to anesthetize the left radial artery. A 6- Colombian sheath was placed in the left radial artery using modified Seldinger technique. Left coronary angiography was performed with a 5-Colombian JL 3.5 catheter and right coronary angiography was performed with a 5-Colombian JR4 catheter in various views. CEDENO to LAD angiography was performed with a 5- Colombian far for catheter. Aortic root angiography was performed with a pigtail catheter and no further grafts were noted. Given continued bradycardia decision was made to place a TVP. A 6-Colombian sheath was placed in the right femoral vein using modified Seldinger technique an ultrasound guidance. Next a 5-Colombian TVP wire was advanced into the right ventricle and pacing thresholds were checked. The decision was made to perform PCI of the circumflex. A 6-Colombian CLS 3.5 guide was used to engage the left main. A 0.014 BMW wire was advanced into the distal OM1. A second 0.014 BMW wire was advanced into the distal AV circumflex. Predilation was performed with a 1.5 x 12 and then 2.25 x 12 and then 3.0 x 12 mm by compliant balloon. Next balloon aged pleasant was performed of the AV groove circumflex with a 2.25 x 12 mm balloon. There is still diffuse heavy calcification and therefore the decision was made to perform atherectomy. A 0.014 Viper wire was advanced into the distal OM1. Rotational atherectomy was performed with CSI device for 3 runs at low speed into runs at high speed. Next balloon angioplasty was performed with a 3.25 noncompliant balloon. Next a 3.5 x 38 mm Xience ALEIDA was placed more proximally and a 3.5 x 23 mm Xience ALEIDA was placed more distally. The mid and proximal portion of the stent was postdilated with a 4.0 by compliant balloon. There was some recoil of the proximal circumflex stent which was heavily calcified however less than 10%. Preintervention there was 95% stenosis and TEODORA-2 flow post intervention there was less than 10% stenosis and TEODORA-3 flow. The wire was removed and final angiograms were performed. The right radial sheath was removed and a TR band was placed with hemostasis achieved. The patient tolerated the procedure well. Patient was transported back to the post catheterization holding area in stable condition. Conscious Sedation: Patient was monitored under the direct supervision of vision of myself for conscious sedation using Versed and fentanyl for a total duration of 135 minutes HEMODYNAMICS: Aortic: 124/76 SELECTIVE CORONARY ARTERIOGRAPHY: LEFT MAIN: The left main is a large caliber very short vessel which bifurcates into the LAD and circumflex. There is no significant stenosis. LEFT ANTERIOR DESCENDING CORONARY ARTERY: LAD is a large caliber vessel which wraps around to the apex. There is 100% proximal LAD stenosis. LEFT CIRCUMFLEX CORONARY ARTERY: Left circumflex is a moderate caliber vessel with diffuse 95% proximal circumflex stenosis and a mid OM1 80% stenosis. The AV groove circumflex appears to give off an AV loreto branch. RIGHT CORONARY ARTERY: The right coronary artery is a moderate caliber vessel which gives off a PDA and PLV branch and is the dominant vessel. There is diffuse disease from the entire proximal to distal RCA. There is a or focal 80% RCA stenosis and a more distal 90% stenosis at the level of the bifurcation into a small caliber PDA and PLV. CEDENO to LAD: The CEDENO to LAD is widely patent. There is a mid to distal LAD 90% stenosis. There are left to left collaterals to the OM1 branch. FINAL IMPRESSION: 1. CAD as described above including 100% proximal LAD stenosis, 95% proximal circumflex, mid OM1 80%, diffuse long segment RCA including an 80% proximal RCA and 90% distal RCA, 90% mid to distal LAD stenosis. 2. Status post successful PCI circumflex into OM1 with overlapping 3.5 x 30 mm and 3.5 x 23 mm Xience ALEIDA post dilated with a 4.0 NC balloon, balloon angioplasty circumflex with 2.25 x 12mm balloon, atherectomy circumflex 3. S/p placement of TVP PLAN: 1. Aggressive risk factor modification per most recent ACC/AHA guidelines. 2. Continue Plavix and Eliquis for 12 months 3. Circumflex appears to have an AV node branch and monitor response of PCI circumflex and angioplasty of AV lorteo branch. Monitor for any improvement heart rates with PCI. 4. Consider PCI of RCA however is a very long lesion as well as PCI CEDENO and LAD with mid LAD stenosis if patient continuing to have angina-type symptoms.
[2022-01-18 02:24] LABS: Basophils # (A) 0.2 k/uL (0-0.2); Basophils % (A) 2 %; Eosinophils # (A) 0.2 k/uL (0-0.7); Eosinophils % (A) 2 %; HCT 45.8 % (39.0-53.0); HGB 14.9 gm/dL (13.0-17.5); Lymphocytes # (A) 1.6 k/uL (1.0-4.8); Lymphocytes % (A) 17 %; MCH 32.2 pg (25.0-35.0); MCHC 32.6 g/dL (31.0-37.0); MCV 98.7 fL (80.0-100.0); Mean Platelet Volume 7.6; Monocytes # (A) 1.1 k/uL (0-1.0); Monocytes % (A) 12 %; Neutrophils # (A) 6.1 k/uL (1.3-7.7); Neutrophils % (A) 65 %; Platelet Count 165 k/uL (150-450); RBC 4.63 m/uL (4.30-5.90); RDW 13.3 % (11.5-15.5); WBC 9.3 k/uL (3.8-10.6)
[2022-01-18 02:29] LABS: INR 1.1 (<1.2); Partial Thromboplastin Time 31.4 sec (22.0-30.0); Prothrombin Time 11.8 sec (9.0-12.0)
[2022-01-18 02:31] LABS: ALT 17 U/L (4-49); AST 27 U/L (17-59); African American GFR (CKD) >90 (>60 ml/min/1.73 sqM); Alkaline Phosphatase 62 U/L (38-126); Anion Gap 5 mmol/L; Blood Urea Nitrogen 10 mg/dL (9-20); Calcium 8.1 mg/dL (8.4-10.2); Carbon Dioxide 26 mmol/L (22-30); Chloride 105 mmol/L (98-107); Glucose 111 mg/dL (74-99); Magnesium 1.8 mg/dL (1.6-2.3); Non-African American GFR(CKD) 86 (>60 ml/min/1.73 sqM); Potassium 4.1 mmol/L (3.5-5.1); Sodium 136 mmol/L (137-145); Total Bilirubin 0.4 mg/dL (0.2-1.3); Total Protein 5.4 g/dL (6.3-8.2)
[2022-01-18] MEDS: HEPARIN SODIUM 1,000 UN/ML (10ML VL) IV PRN ×2 (02:41→15:34)
[2022-01-18] MEDS: LEVOTHYROXINE 112 MCG TAB PO SCH (06:35)
[2022-01-18 06:38] LABS: Glucose,Whole Blood 69 mg/dL (70-110)
[2022-01-18] MEDS: INSULIN ASPART (NovoLOG) 100 UNIT/ML VIAL SQ SCH ×4 (06:44→20:46)
[2022-01-18 07:03] LABS: Glucose,Whole Blood 92 mg/dL (70-110)
[2022-01-18 07:12] LABS: Basophils # (A) 0.1 k/uL (0-0.2); Basophils % (A) 1 %; Eosinophils # (A) 0.3 k/uL (0-0.7); Eosinophils % (A) 3 %; HCT 47.6 % (39.0-53.0); HGB 15.8 gm/dL (13.0-17.5); Lymphocytes # (A) 1.7 k/uL (1.0-4.8); Lymphocytes % (A) 17 %; MCH 32.8 pg (25.0-35.0); MCHC 33.2 g/dL (31.0-37.0); Mean Platelet Volume 7.5; Monocytes # (A) 1.1 k/uL (0-1.0); Monocytes % (A) 11 %; Neutrophils # (A) 6.7 k/uL (1.3-7.7); Neutrophils % (A) 67 %; Platelet Count 181 k/uL (150-450); RBC 4.81 m/uL (4.30-5.90); RDW 13.4 % (11.5-15.5)
[2022-01-18 07:28] LABS: African American GFR (CKD) >90 (>60 ml/min/1.73 sqM); Non-African American GFR(CKD) 82 (>60 ml/min/1.73 sqM)
[2022-01-18] MEDS: TAMSULOSIN 0.4 MG CAP.ER.24H PO SCH (08:49)
[2022-01-18] MEDS: CHOLECALCIFEROL 125 MCG (5000 IU) TABLET PO SCH (08:49)
[2022-01-18] MEDS: ASPIRIN 81 MG PO SCH (08:49)
[2022-01-18] MEDS: LOSARTAN 25 MG TAB PO SCH (08:49)
[2022-01-18] MEDS: FINASTERIDE 5 MG TAB PO SCH (08:49)
[2022-01-18] MEDS: CLOPIDOGREL 75 MG TAB PO SCH (08:50)
[2022-01-18] MEDS: BRIMONIDINE TARTRATE 0.2% DROPS 5 ML BTL BOTH EYES SCH ×2 (08:52→20:47)
[2022-01-18] MEDS: TIMOLOL 0.5% OPHTH DROPS 5 ML BTL BOTH EYES SCH ×2 (08:52→20:47)
[2022-01-18] MEDS: DORZOLAMIDE HCL 2% DROPS 10 ML BTL BOTH EYES SCH ×2 (08:53→20:47)
[2022-01-18] MEDS: prednisoLONE ACETATE 1% OPHTH DROPS 5 ML BTL LEFT EYE SCH ×3 (08:53→17:00)
[2022-01-18] MEDS ORDERED: amLODIPine 5 MG TAB PO STA (09:11)
[2022-01-18] MEDS ORDERED: LEVOTHYROXINE 25 MCG TAB PO STA (09:12)
--- NOTE | 2022-01-18 10:05 | P.PN ---
Progress Note - Text HPI: [This gentleman has history of CAD prior bypass surgery came in with bradycardia and had stenting of circumflex marginal with a good result still has diffuse disease in other vessels also however he has a temporary pacemaker with underlying atrial fibrillation rate is in the 50s. I am recommending that we decrease the backup pacemaker rate down to 35 and see how he does. He is not on any rate lowering agents. I'm increasing the Synthroid from 112-125 g daily. This is actually levothyroxin. I will give additional 25 g today. Patient has underlying sick sinus syndrome but I am not sure if he needs a permanent pacemaker at this time. He is sedentary heart rate is in the 40s. If he has no decrease in heart rate below 40 I would discontinue the pacemaker tomorrow increase activity and see how he does. I discussed my thoughts in detail with the patient. He has multiple comorbid conditions but we will pursue medical therapy for now. He has other disease in RCA however he can perform this in a staged intervention]. PHYSICIAL EXAM: [No JVD S1-S2 heard normally short systolic murmur at left sternal border lungs reveal decent air entry abdomen is soft lower x-rays reveal diminished pulses central nervous system grossly no focal deficits]. IMPRESSION: 1. [ Persistent atrial fibrillation]. 2. [ CAD with a non-ST elevation WI and stenting of circumflex]. 3. [ CAD with prior bypass surgery]. 4. [ Hypertension]. 5. [ Sick sinus syndrome]. RECOMMENDATIONS: [Will decrease the backup pacemaker rate to 35. No rate lowering agents will increase Synthroid follow him noninvasively. Discussed with patient at length. If heart rate does not come below 40 consistently would discontinue the temporary pacemaker,].
[2022-01-18] MEDS: FLUTICASONE 50MCG/SPRAY NASAL 16GM EA NOSTRIL SCH (11:07)
[2022-01-18 11:44] LABS: Glucose,Whole Blood 165 mg/dL (70-110)
--- NOTE | 2022-01-18 12:47 | P.PN ---
Subjective Progress Note Date: 01/18/22 Principal diagnosis: Bradycardia Patient is reporting that he feels better currently. He was able to get up without significant weakness. No chest pain or shortness of breath. Objective - Vital Signs Vital signs: Vital Signs Temp 98.3 F 01/18/22 12:00 Pulse 55 L 01/18/22 12:00 Resp 24 01/18/22 12:00 BP 163/79 01/18/22 12:00 Pulse Ox 94 L 01/18/22 12:00 FiO2 Intake & Output 01/17/22 01/18/22 01/18/22 18:59 06:59 18:59 Intake Total 770 905.706 433.368 Output Total 375 850 800 Balance 395 55.706 -366.632 Weight 95 kg Intake: IV 770 840 350 0.9 sheath 120 240 100 Sodium Chloride 0.9% 1, 300 600 250 000 ml @ 50 mls/hr IV . Q20H [facility] Rx#:[id number] Intake, IV Titration 65.706 83.368 Amount Heparin Sod,Pork in 0.45% 65.706 83.368 NaCl 25,000 unit In 0.45 % NaCl 1 250ml.bag @ 11. 03 UNITS/KG/HR 10.006 mls /hr IV .Q24H [facility] Rx#: [id number] Output: Urine 375 850 800 Other: Voiding Method Urinal Urinal Urinal # Voids 0 0 - Exam Constitutional: No acute distress, conversant, pleasant Eyes:Anicteric sclerae, moist conjunctiva, no lid-lag, PERRLA, ENMT: Oropharynx clear, no erythema, exudates Neck: Supple, FROM, no masses, or JVD, No carotid bruits, No thyromegaly Lungs: Clear to auscultation, Clear to percussion, Normal respiratory effort, no accessory muscle use Cardiovascular: Bradycardic, irregular, No murmurs, gallops, or rubs, 1+ peripheral edema Abdominal: Soft, Nontender, no guarding, rebound or rigidity, Normoactive bowel sounds, No hepatomegaly, No splenomegaly, No palpable mass Skin: Normal temperature, tone, texture, turgor, no induration, No subcutaneous nodules, No rash, lesions, No ulcers Extremities: No digital cyanosis, No clubbing, Pedal pulses intact and symmetrical, Radial pulses intact and symmetrical, No calf tenderness Psychiatric: Alert and oriented to person, place and time, appropriate affect, intact judgement Neuro: Muscles Strength 5/5 in all 4 extremities, Sensation to light touch grossly present throughout, Cranial nerves II-XII grossly intact, no focal se nsory deficits - Labs CBC & Chem 7: 01/18/22 06:34 01/18/22 06:34 Labs: Abnormal Lab Results - Last 24 Hours (Table) 01/17/22 01/17/22 01/17/22 Range/Units 13:07 13:23 13:39 Monocytes # (0-1.0) k/uL APTT (22.0-30.0) sec Sodium (137-145) mmol/L Glucose (74-99) mg/dL POC Glucose (mg/dL) 51 L 60 L 66 L (70-110) mg/dL Calcium (8.4-10.2) mg/dL Total Protein (6.3-8.2) g/dL Albumin (3.5-5.0) g/dL 01/17/22 01/17/22 01/18/22 Range/Units 17:16 20:22 01:28 Monocytes # (0-1.0) k/uL APTT (22.0-30.0) sec Sodium 136 L (137-145) mmol/L Glucose 111 H (74-99) mg/dL POC Glucose (mg/dL) 179 H 173 H (70-110) mg/dL Calcium 8.1 L (8.4-10.2) mg/dL Total Protein 5.4 L (6.3-8.2) g/dL Albumin 3.0 L (3.5-5.0) g/dL 01/18/22 01/18/22 01/18/22 Range/Units 01:28 01:28 06:34 Monocytes # 1.1 H 1.1 H (0-1.0) k/uL APTT 31.4 H (22.0-30.0) sec Sodium (137-145) mmol/L Glucose (74-99) mg/dL POC Glucose (mg/dL) (70-110) mg/dL Calcium (8.4-10.2) mg/dL Total Protein (6.3-8.2) g/dL Albumin (3.5-5.0) g/dL 01/18/22 01/18/22 01/18/22 Range/Units 06:34 06:36 11:43 Monocytes # (0-1.0) k/uL APTT 78.8 H (22.0-30.0) sec Sodium (137-145) mmol/L Glucose (74-99) mg/dL POC Glucose (mg/dL) 69 L 165 H (70-110) mg/dL Calcium (8.4-10.2) mg/dL Total Protein (6.3-8.2) g/dL Albumin (3.5-5.0) g/dL Microbiology - Last 24 Hours (Table) 01/17/22 00:29 Urine Culture - Preliminary Urine,Voided Group D Enterococcus 01/16/22 22:10 Blood Culture - Preliminary Blood No Growth after 24 hours 01/16/22 22:00 Blood Culture - Preliminary Blood No Growth after 24 hours 01/15/22 11:05 Urine Culture - Final Urine,Voided Enterococcus faecalis Assessment and Plan Plan: Presyncope Bradycardia likely SSS with hx of a-fib Echocardiogram showing normal EF, moderate aortic stenosis, grade 2 diastolic dysfunction Seen by cardiology, status post TVP. Non-ST elevation myocardial infarction Continue aspirin, Lipitor, Plavix, losartan. He is status post heart catheterization which showed multivessel disease, he had PCI of the circumflex with angioplasty of the AV loreto branch. Cardio following UTI Started on ceftriaxone Urine cultures growing group D streptococcus Leukocytosis Likely secondary to UTI Blood cultures NGTD DM 2 with hypoglycemia SSI Hold lantus Hypothyroidism TSH within normal limits Continue replacement Hypomagnesemia Replace HTN Hyperlipidemia Stable resume meds DVT prophylaxis On ac
[2022-01-18] MEDS ORDERED: AMPICILLIN 2,000 MG in SODIUM CHLORIDE 0.9% 100 ML IVPB SCH (13:00)
[2022-01-18 14:09] VITALS: BMI 30.9
[2022-01-18 16:28] LABS: Glucose,Whole Blood 167 mg/dL (70-110)
[2022-01-18] MEDS: KETOROLAC 0.5% OPHTH DROPS 5 ML BTL LEFT EYE SCH (16:59)
[2022-01-18] MEDS: SODIUM CHLORIDE 0.9% 1,000 ML IV SCH (17:01)
[2022-01-18] MEDS: HEPARIN SOD,PORK IN 0.45% NACL 25,000 UNIT in 0.45% NACL 1 250ML.BAG IV SCH (17:20)
[2022-01-18 20:40] LABS: Glucose,Whole Blood 194 mg/dL (70-110)
[2022-01-18] MEDS: ATORVASTATIN 40 MG TAB PO SCH (20:46)
[2022-01-18] MEDS: NON FORMULARY DRUG (Netarsudil Mesylat/Latanoprost [Rocklatan 0.02%-0.005% Eye Drp] 2.5 ML BOTH EYES SCH (20:48)
[2022-01-18] MEDS: AMPICILLIN 2,000 MG in SODIUM CHLORIDE 0.9% 100 ML IVPB SCH (21:10)
[2022-01-18 22:44] LABS: ABG Base Excess 3.6 mmol/L; ABG HCO3 27 mmol/L (21-25); ABG Oxygen Saturation 96.3 % (94-97); ABG PCO2 36 mmHg (35-45); ABG PH 7.48 (7.35-7.45); ABG PO2 74 mmHg (83-108); ABG TCO2 28 mmol/L (19-24); Allen Test Performed? Yes
--- NOTE | 2022-01-18 22:44 | CT ---
EXAMINATION TYPE: CT brain wo con DATE OF EXAM: 01/18/2022 COMPARISON: None HISTORY: AMS CT DLP: 1157.4 mGycm Automated exposure control for dose reduction was used. There is some cerebral cortical atrophy. There is no mass effect or midline shift. No sign of intracr anial hemorrhage. Calvarium is intact. Skull base is intact. IMPRESSION: Negative unenhanced head CT scan. Cerebral atrophy.
[2022-01-18 23:35] LABS: Basophils # (A) 0.1 k/uL (0-0.2); Basophils % (A) 1 %; Eosinophils # (A) 0.2 k/uL (0-0.7); Eosinophils % (A) 2 %; HCT 48.3 % (39.0-53.0); HGB 16.1 gm/dL (13.0-17.5); Lymphocytes # (A) 1.4 k/uL (1.0-4.8); Lymphocytes % (A) 15 %; MCHC 33.3 g/dL (31.0-37.0); Mean Platelet Volume 7.6; Monocytes # (A) 0.9 k/uL (0-1.0); Monocytes % (A) 10 %; Neutrophils # (A) 6.5 k/uL (1.3-7.7); Neutrophils % (A) 71 %; Platelet Count 195 k/uL (150-450); RBC 4.88 m/uL (4.30-5.90); RDW 13.7 % (11.5-15.5); WBC 9.3 k/uL (3.8-10.6)
[2022-01-19] MEDS: prednisoLONE ACETATE 1% OPHTH DROPS 5 ML BTL LEFT EYE SCH ×4 (00:40→21:28)
[2022-01-19] MEDS: KETOROLAC 0.5% OPHTH DROPS 5 ML BTL LEFT EYE SCH ×4 (00:40→21:28)
[2022-01-19 02:57] LABS: Glucose,Whole Blood 142 mg/dL (70-110)
[2022-01-19] MEDS: AMPICILLIN 2,000 MG in SODIUM CHLORIDE 0.9% 100 ML IVPB SCH ×4 (03:17→21:27)
[2022-01-19 06:51] LABS: Glucose,Whole Blood 177 mg/dL (70-110)
[2022-01-19] MEDS: LEVOTHYROXINE 125 MCG TAB PO SCH (06:57)
[2022-01-19] MEDS: HEPARIN SODIUM 1,000 UN/ML (10ML VL) IV PRN (06:58)
[2022-01-19] MEDS: INSULIN ASPART (NovoLOG) 100 UNIT/ML VIAL SQ SCH ×4 (07:04→21:40)
[2022-01-19] MEDS: amLODIPine 5 MG TAB PO SCH (07:08)
[2022-01-19] MEDS: LOSARTAN 25 MG TAB PO SCH (07:08)
[2022-01-19 07:29] LABS: Basophils # (A) 0.1 k/uL (0-0.2); Basophils % (A) 1 %; Eosinophils # (A) 0.3 k/uL (0-0.7); Eosinophils % (A) 3 %; HGB 16.9 gm/dL (13.0-17.5); Lymphocytes # (A) 1.6 k/uL (1.0-4.8); Lymphocytes % (A) 15 %; MCH 33.1 pg (25.0-35.0); MCHC 33.7 g/dL (31.0-37.0); MCV 98.2 fL (80.0-100.0); Monocytes # (A) 1.1 k/uL (0-1.0); Monocytes % (A) 11 %; Neutrophils # (A) 7.1 k/uL (1.3-7.7); Neutrophils % (A) 69 %; Platelet Count 182 k/uL (150-450); RDW 13.3 % (11.5-15.5); WBC 10.3 k/uL (3.8-10.6)
[2022-01-19 07:39] LABS: African American GFR (CKD) >90 (>60 ml/min/1.73 sqM); Anion Gap 4 mmol/L; Blood Urea Nitrogen 6 mg/dL (9-20); Calcium 8.4 mg/dL (8.4-10.2); Carbon Dioxide 25 mmol/L (22-30); Chloride 107 mmol/L (98-107); Glucose 158 mg/dL (74-99); Non-African American GFR(CKD) >90 (>60 ml/min/1.73 sqM); Potassium 4.2 mmol/L (3.5-5.1); Sodium 136 mmol/L (137-145)
[2022-01-19] MEDS: DOPamine DRIP 800 MG in DEXTROSE/WATER 1 250ML.BAG IV SCH (09:08)
[2022-01-19] MEDS: BRIMONIDINE TARTRATE 0.2% DROPS 5 ML BTL BOTH EYES SCH ×2 (10:14→21:28)
[2022-01-19] MEDS: DORZOLAMIDE HCL 2% DROPS 10 ML BTL BOTH EYES SCH ×2 (10:15→21:28)
[2022-01-19] MEDS: TIMOLOL 0.5% OPHTH DROPS 5 ML BTL BOTH EYES SCH ×2 (10:16→21:28)
[2022-01-19] MEDS: CLOPIDOGREL 75 MG TAB PO SCH (10:18)
[2022-01-19] MEDS: CHOLECALCIFEROL 125 MCG (5000 IU) TABLET PO SCH (10:18)
[2022-01-19] MEDS: ASPIRIN 81 MG PO SCH (10:18)
[2022-01-19] MEDS: FINASTERIDE 5 MG TAB PO SCH (10:22)
[2022-01-19] MEDS: TAMSULOSIN 0.4 MG CAP.ER.24H PO SCH (10:23)
[2022-01-19] MEDS: FLUTICASONE 50MCG/SPRAY NASAL 16GM EA NOSTRIL SCH (10:30)
[2022-01-19 14:05] LABS: Glucose,Whole Blood 215 mg/dL (70-110)
--- NOTE | 2022-01-19 14:07 | PN ---
PROGRESS NOTE This gentleman has history of CAD, prior bypass surgery and recent PCI of circumflex. I removed his temporary pacemaker today. We will pull the sheath also. His heart rate is between 50 and 60, atrial fib. He is on IV heparin right now. We will continue current medical regimen and hopefully will not need the pacemaker. Discussed my thoughts in detail with the patient's family. Vital signs stable. S1-S2 heard normally. Irregular rhythm noted. Short systolic murmur noted. Lungs reveal improved air entry. Abdomen and lower extremity exam unchanged. We have discontinued the pacemaker. We will pull the sheath and based on clinical course, make further recommendations. MMODL / IJN: [id number] /
[2022-01-19] MEDS: SODIUM CHLORIDE 0.9% 1,000 ML IV SCH (14:16)
--- NOTE | 2022-01-19 15:11 | P.CNNES ---
History of Present Illness Consult date: 01/19/22 Requesting physician: Cj Mehta Reason for Consult: New onset confusion History of Present Illness: Patient is a 81-year-old male came to the hospital on 01/15/2022 for dizziness. She mentions that about 01/08/2022, he started having dizzy spells, and would be forgetful. He will get dizzy spells, 2-4 times a day, no nausea. It would last for a couple minutes. He describes it as spinning, and could occur while he was sitting in the couch or sometimes when he would be moving then he gets dizzy. His noticed that prior to arrival to the hospital, with his dizzy spells he would turn menendez. Patient was diagnosed with symptomatic bradycardia, underwent placement of transvenous pacemaker. Patient does have heparin IV infusing. Patient developed new onset confusion as of yesterday, pulling at lines and believed that he is in the basement. He has a more edgy, irritable. This prompted neurology consultation. I spoke to the nurse today, she mentions that he took a nap for about 1-1/2 hours, and after that he was alert and oriented 3. However after finishing his lunch, he started pulling on the IV lines again. Now he is again better. The transvenous pacemaker was removed this morning. Patient has not had any dizzy spells since he arrived to the hospital. Patient's was present today, who provided her some additional history. She mentions that in September 2021 patient had herniated disc 2. He had little memory problems since then. He forgets what he was told. CT of the head was performed, which revealed no acute process. Cerebral atrophy. On my review, there is no acute process. Bilateral basal ganglionic calcification. Blood test shows normal CBC, PTT 41.4. Sodium 136 potassium 4.2, normal renal functions. Vitamin B12 308, folate > 20.0. ABG with pH 7.48, pCO2 36, pO2 74 and saturation 96%. Hepatic panel normal. Hemoglobin A1c 7.3 on 02/23/2017. UA shows large amount of leukocyte esterase and few wbc's and rare bacteria. Urine cultures have grown group D enterococcus. Patient chews tobacco. No alcohol use, no marijuana. He does have diabetes for last 30 years. Also has hypertension. He has CAD, status post bypass surgery in 1992. Review of Systems As mentioned above in HPI. All other 14 points of review of systems reviewed and are unremarkable or not related to presenting complaints. 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" History of Any Multi-Drug Resistant Organisms: None Reported Past Surgical History: Heart Catheterization With Stent, Joint Replacement, Orthopedic Surgery Additional Past Surgical History / Comment(s): knee replacement, foot with 12 screws and reconstruction, catarat surgery 12/28/21 Past Anesthesia/Blood Transfusion Reactions: No Reported Reaction Date of Last Stent Placement:: 1992 Past Psychological History: No Psychological Hx Reported Smoking Status: Former smoker Past Alcohol Use History: None Reported Past Drug Use History: None Reported - Past Family History Father Additional Family Medical History / Comment(s): "at age 51 one day woke up not feeling well and had some dizziness and " Medications and Allergies Home Medications Medication Instructions Recorded Confirmed Type Apixaban [Eliquis] 5 mg PO BID 03/12/19 01/15/22 History Atorvastatin [Lipitor] 40 mg PO HS 03/12/19 01/15/22 History Insulin Aspart [NovoLOG Flexpen] See Protocol SQ AC-TID 03/12/19 01/15/22 History Insulin Glargine [Lantus] 35 unit SQ HS 03/12/19 01/15/22 History Losartan Potassium [Cozaar] 25 mg PO DAILY 03/12/19 01/15/22 History Tamsulosin HCl [Flomax] 0.8 mg PO DAILY 03/12/19 01/15/22 History metFORMIN HCL [Glucophage] 1,000 mg PO BID 03/12/19 01/15/22 History Brimonidine Tartrate/Timolol 1 drop BOTH EYES BID 09/25/21 01/15/22 History [Combigan 0.2%-0.5% Eye Drops] Cholecalciferol [Vitamin D3 (125 125 mcg PO DAILY 09/25/21 01/15/22 History Mcg = 5000 Iu)] Dorzolamide HCl/Pf [Dorzolamide 2% 1 drop BOTH EYES BID 09/25/21 01/15/22 History Eye Drop] Fluticasone Nasal [place] [Flonase 2 spr EA NOSTRIL DAILY 09/25/21 01/15/22 History Nasal [place]] Levothyroxine Sodium [Synthroid] 112 mcg PO DAILY 09/25/21 01/15/22 History Netarsudil Mesylat/Latanoprost 1 drop BOTH EYES HS 09/25/21 01/15/22 History [Rock[place] 0.02%-0.005% Eye Drp] Testosterone Cypionate 200 mg IM Q21D 09/25/21 01/15/22 History [Depo-Testosterone] Bromfenac Sodium [Prolensa Ophth 01/15/22 History Soln] Finasteride [Proscar] 5 mg PO DAILY 01/15/22 01/15/22 History Ketorolac 0.5% Oph Soln [Acular 1 drop LEFT EYE QID 01/15/22 01/15/22 History 0.5%] Prednisolone Acetate/Pf 1 drop LEFT EYE QID 01/15/22 01/15/22 History [Prednisolone Acet 1% Eye Drop] Allergies Allergy/AdvReac Type Severity Reaction Status Date / Time No Known Allergies Allergy Verified 01/15/22 14:44 Physical Examination - Vital Signs Vital Signs: Vital Signs Temp Pulse Pulse Resp BP Pulse Ox 01/19/22 11:00 60 22 164/97 96 01/19/22 10:00 58 L 24 150/90 95 01/19/22 09:00 52 L 20 167/81 95 01/19/22 08:00 98.1 F 61 30 H 190/100 93 L 01/19/22 07:00 60 23 182/106 95 01/19/22 06:00 51 L 18 157/101 95 01/19/22 05:00 49 L 12 164/92 94 L 01/19/22 04:00 97.6 F 52 L 58 L 15 154/81 94 L 01/19/22 03:00 54 L 12 167/78 95 01/19/22 02:00 57 L 18 167/95 93 L 01/19/22 01:00 59 L 20 175/94 92 L 01/19/22 00:00 98.3 F 62 60 23 181/89 94 L 01/18/22 23:29 59 L 35 H 94 L 01/18/22 23:00 54 L 19 173/92 95 01/18/22 22:00 64 24 177/94 95 07/11/22 21:00 64 20 174/85 94 L 01/18/22 20:00 98.7 F 59 L 62 18 153/79 96 01/18/22 19:00 48 L 14 149/85 94 L 01/18/22 18:00 56 L 18 155/88 94 L 01/18/22 17:00 60 14 182/89 94 L 01/18/22 16:00 65 21 165/90 95 01/18/22 15:00 62 23 144/96 95 01/18/22 14:00 59 L 23 156/94 94 L 01/18/22 13:00 56 L 14 142/90 94 L 01/18/22 12:00 98.3 F 55 L 24 163/79 94 L Intake and Output 01/18/22 01/19/22 01/19/22 22:59 06:59 14:59 Intake Total 908.211 659.915 290 Output Total 1575 2275 225 Balance -666.789 -1615.085 65 Intake: IV 660 560 290 0.9 sheath 160 160 40 Ampicillin 2,000 mg In 100 Sodium Chloride 0.9% 100 ml @ 200 mls/hr IVPB Q6HR [facility] Rx#:[id number] Sodium Chloride 0.9% 1, 400 400 250 000 ml @ 50 mls/hr IV . Q20H [facility] Rx#:[id number] Intake, IV Titration 248.211 99.915 Amount Ampicillin 2,000 mg In 100 Sodium Chloride 0.9% 100 ml @ 200 mls/hr IVPB Q6H [facility] Rx#:[id number] Heparin Sod,Pork in 0.45% 148.211 99.915 NaCl 25,000 unit In 0.45 % NaCl 1 250ml.bag @ 11. 03 UNITS/KG/HR 10.006 mls /hr IV .Q24H [facility] Rx#: [id number] Output: Urine 1575 2275 225 Other: Voiding Method Urinal Urinal Urinal # Voids 1 1 1 # Bowel Movements 1 Weight 98.2 kg Patient is an elderly male, who appears slightly edgy, hyperalert, slightly irritable. Patient is alert awake in no distress. He knows it is January and the year is 2021. He thinks that he is in [facility] in [facility]. He thinks Mr. Polanco is the president. He knows his date of . Speech and language functions are normal. Patient can name and repeat very well. Attention, concentration and fund of knowledge is slightly impaired. On cranial examination, pupils are round and reacting to light, visual lucero are full on confrontation, with no neglect on double simultaneous stimulation. His extraocular muscles are intact with no nystagmus. Face is symmetric, tongue protrudes to the midline. Palatal elevation and sensation normal, hearing and shoulder shrug normal, facial sensation normal. Shoulder shrug normal. On muscle strength testing, there is no pronator drift and the strength is normal in arms and legs distally and proximally. Deep tendon reflexes are (right/left) biceps 1/1, brachioradialis 1/1, knees 1+/0, ankles trace/trace, plantar is up on the right, whereas flat on the left. Sensory to touch is equal with no neglect. Cerebellar function showed no ataxia for [id number] testing. Tone and bulk of muscles normal. Gait not checked. On general examination, there is no carotid bruit or murmur, S1-S2 audible. Abdomen is soft nontender. No organomegaly, bowel sounds present. Chest is clear. Peripheral pulses are present. Patient has mild peripheral edema. Results - Laboratory Findings CBC and BMP: 01/20/22 06:25 01/20/22 06:25 Abnormal Lab Findings: Abnormal Labs 01/15/22 01/15/22 01/15/22 11:05 11:07 17:34 WBC Neutrophils # Monocytes # APTT ABG pH ABG pO2 ABG HCO3 ABG Total CO2 Sodium Carbon Dioxide BUN Glucose 126 H POC Glucose (mg/dL) 119 H Calcium Magnesium Troponin I Total Protein Albumin Urine Protein 1+ H Urine Glucose (UA) 2+ H Ur Leukocyte Esterase Large H Urine WBC 95 H Urine Bacteria Rare H Urine Mucus Rare H 01/15/22 01/16/22 01/16/22 19:45 10:04 10:04 WBC 13.6 H Neutrophils # 11.3 H Monocytes # APTT ABG pH ABG pO2 ABG HCO3 ABG Total CO2 Sodium Carbon Dioxide BUN Glucose 181 H POC Glucose (mg/dL) 177 H Calcium Magnesium 1.5 L Troponin I Total Protein 6.2 L Albumin Urine Protein Urine Glucose (UA) Ur Leukocyte Esterase Urine WBC Urine Bacteria Urine Mucus 07/09/22 07/09/22 07/09/22 11:53 16:54 21:09 WBC Neutrophils # Monocytes # APTT ABG pH ABG pO2 ABG HCO3 ABG Total CO2 Sodium Carbon Dioxide BUN Glucose POC Glucose (mg/dL) 186 H 169 H 112 H Calcium Magnesium Troponin I Total Protein Albumin Urine Protein Urine Glucose (UA) Ur Leukocyte Esterase Urine WBC Urine Bacteria Urine Mucus 01/16/22 01/17/22 01/17/22 22:05 00:26 06:07 WBC 14.7 H Neutrophils # 10.1 H Monocytes # 1.2 H APTT ABG pH ABG pO2 ABG HCO3 ABG Total CO2 Sodium Carbon Dioxide BUN Glucose POC Glucose (mg/dL) Calcium Magnesium Troponin I 3.210 H* 3.580 H* Total Protein Albumin Urine Protein Urine Glucose (UA) Ur Leukocyte Esterase Urine WBC Urine Bacteria Urine Mucus 01/17/22 01/17/22 01/17/22 06:07 06:07 06:07 WBC Neutrophils # Monocytes # APTT 33.7 H ABG pH ABG pO2 ABG HCO3 ABG Total CO2 Sodium Carbon Dioxide 32 H BUN Glucose 48 L* POC Glucose (mg/dL) Calcium Magnesium Troponin I 3.130 H* Total Protein Albumin Urine Protein Urine Glucose (UA) Ur Leukocyte Esterase Urine WBC Urine Bacteria Urine Mucus 01/17/22 01/17/22 01/17/22 06:32 06:34 13:07 WBC Neutrophils # Monocytes # APTT ABG pH ABG pO2 ABG HCO3 ABG Total CO2 Sodium Carbon Dioxide BUN Glucose POC Glucose (mg/dL) 53 L 51 L 51 L Calcium Magnesium Troponin I Total Protein Albumin Urine Protein Urine Glucose (UA) Ur Leukocyte Esterase Urine WBC Urine Bacteria Urine Mucus 01/17/22 01/17/22 01/17/22 13:23 13:39 17:16 WBC Neutrophils # Monocytes # APTT ABG pH ABG pO2 ABG HCO3 ABG Total CO2 Sodium Carbon Dioxide BUN Glucose POC Glucose (mg/dL) 60 L 66 L 179 H Calcium Magnesium Troponin I Total Protein Albumin Urine Protein Urine Glucose (UA) Ur Leukocyte Esterase Urine WBC Urine Bacteria Urine Mucus 01/17/22 01/18/22 01/18/22 20:22 01:28 01:28 WBC Neutrophils # Monocytes # 1.1 H APTT ABG pH ABG pO2 ABG HCO3 ABG Total CO2 Sodium 136 L Carbon Dioxide BUN Glucose 111 H POC Glucose (mg/dL) 173 H Calcium 8.1 L Magnesium Troponin I Total Protein 5.4 L Albumin 3.0 L Urine Protein Urine Glucose (UA) Ur Leukocyte Esterase Urine WBC Urine Bacteria Urine Mucus 01/18/22 01/18/22 01/18/22 01:28 06:34 06:34 WBC Neutrophils # Monocytes # 1.1 H APTT 31.4 H 78.8 H ABG pH ABG pO2 ABG HCO3 ABG Total CO2 Sodium Carbon Dioxide BUN Glucose POC Glucose (mg/dL) Calcium Magnesium Troponin I Total Protein Albumin Urine Protein Urine Glucose (UA) Ur Leukocyte Esterase Urine WBC Urine Bacteria Urine Mucus 01/18/22 01/18/22 01/18/22 06:36 11:43 14:29 WBC Neutrophils # Monocytes # APTT 39.0 H ABG pH ABG pO2 ABG HCO3 ABG Total CO2 Sodium Carbon Dioxide BUN Glucose POC Glucose (mg/dL) 69 L 165 H Calcium Magnesium Troponin I Total Protein Albumin Urine Protein Urine Glucose (UA) Ur Leukocyte Esterase Urine WBC Urine Bacteria Urine Mucus 01/18/22 01/18/22 01/18/22 16:27 20:38 21:41 WBC Neutrophils # Monocytes # APTT 43.7 H ABG pH ABG pO2 ABG HCO3 ABG Total CO2 Sodium Carbon Dioxide BUN Glucose POC Glucose (mg/dL) 167 H 194 H Calcium Magnesium Troponin I Total Protein Albumin Urine Protein Urine Glucose (UA) Ur Leukocyte Esterase Urine WBC Urine Bacteria Urine Mucus 01/18/22 01/19/22 01/19/22 22:32 02:55 05:32 WBC Neutrophils # Monocytes # APTT 41.4 H ABG pH 7.48 H ABG pO2 74 L ABG HCO3 27 H ABG Total CO2 28 H Sodium Carbon Dioxide BUN Glucose POC Glucose (mg/dL) 142 H Calcium Magnesium Troponin I Total Protein Albumin Urine Protein Urine Glucose (UA) Ur Leukocyte Esterase Urine WBC Urine Bacteria Urine Mucus 01/19/22 01/19/22 01/19/22 05:32 05:32 06:49 WBC Neutrophils # Monocytes # 1.1 H APTT ABG pH ABG pO2 ABG HCO3 ABG Total CO2 Sodium 136 L Carbon Dioxide BUN 6 L Glucose 158 H POC Glucose (mg/dL) 177 H Calcium Magnesium Troponin I Total Protein Albumin Urine Protein Urine Glucose (UA) Ur Leukocyte Esterase Urine WBC Urine Bacteria Urine Mucus Assessment and Plan Assessment: * Altered mental status, likely due to acute delirium. * Acute UTI due to enterococcus faecalis, group D. * Acute non-STEMI. * Diabetes, not well controlled * Dyslipidemia Plan: * Patient has acute delirium, likely due to hospitalization, with multiple medical conditions as mentioned above, including UTI. * Patient's has noticed that he is slightly forgetful in the last few months. Patient's was recommended to follow-up in the neurology office for a detailed cognitive examination, after he is discharged, and the delirium is completely resolved. * 2-D echo revealed normal left ventricular ejection fraction 55-60%. Grade 2 diastolic dysfunction. Moderate aortic stenosis. Mild MR. * We will check B12, folate, hemoglobin A1c. Patient's TSH is normal 0.88. * Neurology will follow clinically. * Thank you for the consult.
[2022-01-19] MEDS: HEPARIN SOD,PORK IN 0.45% NACL 25,000 UNIT in 0.45% NACL 1 250ML.BAG IV SCH (15:44)
[2022-01-19 17:23] LABS: Glucose,Whole Blood 275 mg/dL (70-110)
[2022-01-19 20:25] LABS: Glucose,Whole Blood 157 mg/dL (70-110)
[2022-01-19] MEDS: ATORVASTATIN 40 MG TAB PO SCH (21:27)
[2022-01-20] MEDS: NON FORMULARY DRUG (Netarsudil Mesylat/Latanoprost [Rocklatan 0.02%-0.005% Eye Drp] 2.5 ML BOTH EYES SCH ×2 (00:50→20:28)
[2022-01-20] MEDS: AMPICILLIN 2,000 MG in SODIUM CHLORIDE 0.9% 100 ML IVPB SCH ×4 (02:33→20:03)
[2022-01-20] MEDS: DOPamine DRIP 800 MG in DEXTROSE/WATER 1 250ML.BAG IV SCH (06:07)
[2022-01-20 06:49] LABS: Glucose,Whole Blood 114 mg/dL (70-110)
[2022-01-20] MEDS: INSULIN ASPART (NovoLOG) 100 UNIT/ML VIAL SQ SCH ×4 (06:57→20:02)
[2022-01-20] MEDS: LEVOTHYROXINE 125 MCG TAB PO SCH (07:01)
[2022-01-20 07:15] LABS: ALT 15 U/L (4-49); AST 25 U/L (17-59); African American GFR (CKD) >90 (>60 ml/min/1.73 sqM); Albumin 3.2 g/dL (3.5-5.0); Alkaline Phosphatase 73 U/L (38-126); Anion Gap 5 mmol/L; Blood Urea Nitrogen 8 mg/dL (9-20); Calcium 8.1 mg/dL (8.4-10.2); Carbon Dioxide 23 mmol/L (22-30); Chloride 109 mmol/L (98-107); Glucose 122 mg/dL (74-99); Magnesium 1.6 mg/dL (1.6-2.3); Non-African American GFR(CKD) >90 (>60 ml/min/1.73 sqM); Potassium 4.3 mmol/L (3.5-5.1); Sodium 137 mmol/L (137-145); Total Bilirubin 0.9 mg/dL (0.2-1.3); Total Protein 5.8 g/dL (6.3-8.2)
[2022-01-20 07:26] LABS: Basophils # (A) 0.1 k/uL (0-0.2); Basophils % (A) 1 %; Eosinophils # (A) 0.2 k/uL (0-0.7); Eosinophils % (A) 2 %; HCT 47.7 % (39.0-53.0); HGB 15.6 gm/dL (13.0-17.5); Lymphocytes # (A) 1.6 k/uL (1.0-4.8); Lymphocytes % (A) 20 %; MCH 31.9 pg (25.0-35.0); MCHC 32.7 g/dL (31.0-37.0); MCV 97.7 fL (80.0-100.0); Mean Platelet Volume 7.8; Monocytes # (A) 0.8 k/uL (0-1.0); Monocytes % (A) 10 %; Neutrophils % (A) 65 %; Platelet Count 167 k/uL (150-450); RBC 4.88 m/uL (4.30-5.90); RDW 13.4 % (11.5-15.5); WBC 7.7 k/uL (3.8-10.6)
[2022-01-20] MEDS ORDERED: MAGNESIUM SULFATE-D5W PMX 1 GM in DEXTROSE/WATER 1 100ML.BAG IVPB ONE (07:36)
[2022-01-20] MEDS: ASPIRIN 81 MG PO SCH (09:15)
[2022-01-20] MEDS: CLOPIDOGREL 75 MG TAB PO SCH (09:15)
[2022-01-20] MEDS: TAMSULOSIN 0.4 MG CAP.ER.24H PO SCH (09:16)
[2022-01-20] MEDS: CHOLECALCIFEROL 125 MCG (5000 IU) TABLET PO SCH (09:16)
[2022-01-20] MEDS: LOSARTAN 25 MG TAB PO SCH (09:16)
[2022-01-20] MEDS: amLODIPine 5 MG TAB PO SCH (09:17)
[2022-01-20] MEDS: HEPARIN SOD,PORK IN 0.45% NACL 25,000 UNIT in 0.45% NACL 1 250ML.BAG IV SCH (09:19)
[2022-01-20] MEDS: BRIMONIDINE TARTRATE 0.2% DROPS 5 ML BTL BOTH EYES SCH ×2 (09:29→20:18)
[2022-01-20] MEDS: TIMOLOL 0.5% OPHTH DROPS 5 ML BTL BOTH EYES SCH ×2 (09:30→20:18)
[2022-01-20] MEDS: DORZOLAMIDE HCL 2% DROPS 10 ML BTL BOTH EYES SCH ×2 (09:30→20:18)
[2022-01-20] MEDS: KETOROLAC 0.5% OPHTH DROPS 5 ML BTL LEFT EYE SCH ×3 (09:35→22:38)
[2022-01-20] MEDS: prednisoLONE ACETATE 1% OPHTH DROPS 5 ML BTL LEFT EYE SCH ×3 (09:35→22:37)
[2022-01-20] MEDS: FLUTICASONE 50MCG/SPRAY NASAL 16GM EA NOSTRIL SCH ×2 (09:42→15:11)
[2022-01-20] MEDS: FINASTERIDE 5 MG TAB PO SCH (09:59)
--- NOTE | 2022-01-20 10:41 | CDI ---
Documentation Clarification Form Date: 01/20/2022 10:27:10 AM From: Aleah Pena CCS, CCDS Admit Date: 01/15/2022 02:00:00 PM Patient Name: Felipe Moon Visit Number: [id number] Discharge Date: ATTENTION: The Clinical Documentation Specialists (CDI) and [facility] Coding Staff appreciate your assistance in clarifying documentation. Please respond to the clarification below the line at the bottom and electronically sign. The CDI & [facility] Coding staff will review the response and follow-up if needed. Please note: Queries are made part of the Legal Health Record. If you have any questions, please contact the author of this message via ITS. Dr. Kj Robertson: Per the 01/19 Neurology Consult: Patient developed new onset confusion as of yesterday, pulling at lines and believed that he is in the basement. He has been more edgy, irritable. This prompted neurology consultation. I spoke to the nurse today, she mentions that he took a nap for about 1-1/2 hours, and after that he was alert and oriented 3. However after finishing his lunch, he started pulling on the IV lines again. Now he is again better Plan: Patient has acute delirium, likely due to hospitalization, with multiple medical conditions as mentioned above, including UTI. Additional clarification regarding the etiology of the patient's delirium is requested. History/Risk Factors per the 01/15 H/P: Diabetes Mellitus Type II, Bladder Stones, CAD with stent, Hypothyroidism, Hypertension. Clinical Indicators: Presented to the 01/15 ED with Dizziness, weakness x5 days. [place] tired. On Eliquis due to Atrial fibrillation. Bradycardic w/HR 36. Admit with Atrial Fibrillation, Bradycardia, Dizziness, Generalized Weakness. 01/15 VS: T 97.9, P 46, R 16, 26; BP 145/77, PO 99 RA 01/15 LAB: Glucose 126 01/15 UA: clear, 1+ Protein, 2+ Glucose, Large Esterase, WBC 95 01/15 CXR: Borderline heart size, correlate to exclude CHF with mild pulmonary vascular congestion. Midthoracic kyphosis. 01/18 CT Brain: Negative. Cerebral atrophy. Treatment 01/15: Fall precautions, Neurological assessment, Cardiology consulted, IV Zofran 4 mg q8H, IV Na Chl 1,000 mls @ 50 mls/hr q20H, po Eliquis 5 mg BID, Insulin sq 35 units sq. 01/18: Neurology Consult, IV Plavix po 75 mg Daily, po Norvasc 5 mg x1, po Synthroid 25 mcg x1, IV Ampicillin 100 mls @ 200 mls/hr q6H Please clarify the etiology of the patient's delirium if known: [ ] Metabolic Encephalopathy [ ] Toxic Encephalopathy [ ] Other, please specify: [ ] Unable to determine (Template Last Revised: September 2020) Patient likely had metabolic encephalopathy mainly related to acute UTI. Patient's other medical conditions including B12 deficiency, elevated cardiac enzymes, and transient episode of hypoglycemia likely contributing to the metabolic encephalopathy, Please let me know if any other concerns. Thank you, MD MARIANELA Buckner
[2022-01-20 11:27] LABS: Glucose,Whole Blood 229 mg/dL (70-110)
[2022-01-20 16:39] LABS: Glucose,Whole Blood 279 mg/dL (70-110)
--- NOTE | 2022-01-20 16:42 | P.PN ---
Subjective Progress Note Date: 01/20/22 Principal diagnosis: Bradycardia Patient was seen and examined. No acute events overnight. Heart rate in the 40s. Patient denies any chest pain, shortness of breath, palpitations or dizziness. Ambulating comfortably. Objective - Vital Signs Vital signs: Vital Signs Temp 98.4 F 01/20/22 08:00 Pulse 46 L 01/20/22 14:00 Resp 14 01/20/22 14:00 BP 119/82 01/20/22 12:00 Pulse Ox 95 01/20/22 14:00 FiO2 Intake & Output 01/19/22 01/20/22 01/20/22 18:59 06:59 18:59 Intake Total 1033.445 750 820 Output Total 1125 945 200 Balance -91.555 -195 620 Weight 97 kg Intake: IV 690 750 50 0.9 sheath 40 Ampicillin 2,000 mg In 50 100 Sodium Chloride 0.9% 100 ml @ 200 mls/hr IVPB Q6HR [facility] Rx#:[id number] Sodium Chloride 0.9% 1, 600 650 50 000 ml @ 50 mls/hr IV . Q20H [facility] Rx#:[id number] Intake, IV Titration 93.445 350 Amount Heparin Sod,Pork in 0.45% 93.445 250 NaCl 25,000 unit In 0.45 % NaCl 1 250ml.bag @ 11. 03 UNITS/KG/HR 10.006 mls /hr IV .Q24H [facility] Rx#: [id number] Magnesium Sulfate-D5w Pmx 100 1 gm In Dextrose/Water 1 100ml.bag @ 100 mls/hr IVPB ONCE [facility] Rx#: [id number] Oral 250 420 Output: Urine 1125 945 200 Other: Voiding Method Urinal Urinal Toilet # Voids 1 # Bowel Movements 1 - Exam Constitutional: No acute distress, conversant, pleasant Eyes:Anicteric sclerae, moist conjunctiva, no lid-lag, PERRLA, ENMT: Oropharynx clear, no erythema, exudates Neck: Supple, FROM, no masses, or JVD, No carotid bruits, No thyromegaly Lungs: Clear to auscultation, Clear to percussion, Normal respiratory effort, no accessory muscle use Cardiovascular: Bradycardic, irregular, No murmurs, gallops, or rubs, 1+ peripheral edema Skin: Normal temperature, tone, texture, turgor, no induration, No subcutaneous nodules, No rash, lesions, No ulcers Psychiatric: Alert and oriented to person, place and time, appropriate affect, intact judgement - Labs CBC & Chem 7: 01/20/22 06:25 01/20/22 06:25 Labs: Abnormal Lab Results - Last 24 Hours (Table) 01/19/22 01/19/22 01/19/22 Range/Units 17:21 20:23 21:38 APTT 56.0 H (22.0-30.0) sec Chloride (98-107) mmol/L BUN (9-20) mg/dL Glucose (74-99) mg/dL POC Glucose (mg/dL) 275 H 157 H (70-110) mg/dL Calcium (8.4-10.2) mg/dL Total Protein (6.3-8.2) g/dL Albumin (3.5-5.0) g/dL 01/20/22 01/20/22 01/20/22 Range/Units 06:25 06:25 06:46 APTT 47.2 H (22.0-30.0) sec Chloride 109 H (98-107) mmol/L BUN 8 L (9-20) mg/dL Glucose 122 H (74-99) mg/dL POC Glucose (mg/dL) 114 H (70-110) mg/dL Calcium 8.1 L (8.4-10.2) mg/dL Total Protein 5.8 L (6.3-8.2) g/dL Albumin 3.2 L (3.5-5.0) g/dL 01/20/22 Range/Units 11:26 APTT (22.0-30.0) sec Chloride (98-107) mmol/L BUN (9-20) mg/dL Glucose (74-99) mg/dL POC Glucose (mg/dL) 229 H (70-110) mg/dL Calcium (8.4-10.2) mg/dL Total Protein (6.3-8.2) g/dL Albumin (3.5-5.0) g/dL Microbiology - Last 24 Hours (Table) 01/16/22 22:10 Blood Culture - Preliminary Blood No Growth after 72 hours 01/16/22 22:00 Blood Culture - Preliminary Blood No Growth after 72 hours Assessment and Plan Assessment: Presyncope Bradycardia likely SSS with hx of a-fib Echocardiogram showing normal EF, moderate aortic stenosis, grade 2 diastolic dysfunction Seen by cardiology, status post TVP. Continue heparin drip to be switched to NOAC tomorrow Non-ST elevation myocardial infarction Continue aspirin, Lipitor, Plavix, losartan. Hold beta tejinder due to bradycardia. He is status post heart cath which showed multivessel disease, he had PCI of the circumflex with angioplasty of the AV loreto branch. Cardio following UTI Continue Ampicillin Urine cultures growing group D streptococcus DM 2 with hypoglycemia SSI Hold lantus Hypothyroidism TSH within normal limits Continue replacement Hypomagnesemia Replace HTN Hyperlipidemia Stable resume meds DVT prophylaxis On ac Resolved: Leukocytosis Plans for hopeful DC home tomorrow.
[2022-01-20] MEDS: SODIUM CHLORIDE 0.9% 1,000 ML IV SCH (17:35)
--- NOTE | 2022-01-20 18:45 | PN ---
PROGRESS NOTE The patient has sick sinus syndrome, atrial fibrillation. Rate today is 60, in the night it went up to 30 beats per minute but right now while he is sitting up and talking it is in the 60s. We will not do any pacemaker. His temporary pacemaker was taken out yesterday. He underwent stenting of circumflex. He is doing better clinically. We will increase activity and move him to telemetry unit. Vitals are stable, no JVD. S1-S2 heard normally, short systolic murmur noted, irregular rate and rhythm noted. Lungs revealed improved air entry. Abdomen and lower extremity exam is unchanged. We will continue IV heparin drip and move him to telemetry. Prognosis remains guarded. MMODL / IJN: [id number] /
[2022-01-20 19:41] LABS: Glucose,Whole Blood 239 mg/dL (70-110)
[2022-01-20] MEDS: ATORVASTATIN 40 MG TAB PO SCH (20:02)
[2022-01-21] MEDS: HEPARIN SOD,PORK IN 0.45% NACL 25,000 UNIT in 0.45% NACL 1 250ML.BAG IV SCH (01:59)
[2022-01-21] MEDS: AMPICILLIN 2,000 MG in SODIUM CHLORIDE 0.9% 100 ML IVPB SCH ×3 (02:04→15:46)
[2022-01-21 06:35] LABS: Glucose,Whole Blood 129 mg/dL (70-110)
[2022-01-21] MEDS: LEVOTHYROXINE 125 MCG TAB PO SCH (06:44)
[2022-01-21] MEDS: INSULIN ASPART (NovoLOG) 100 UNIT/ML VIAL SQ SCH ×2 (06:45→14:41)
[2022-01-21] MEDS: amLODIPine 5 MG TAB PO SCH (08:48)
[2022-01-21] MEDS: CHOLECALCIFEROL 125 MCG (5000 IU) TABLET PO SCH (08:48)
[2022-01-21] MEDS: CLOPIDOGREL 75 MG TAB PO SCH (08:48)
[2022-01-21] MEDS: FINASTERIDE 5 MG TAB PO SCH (08:48)
[2022-01-21] MEDS: TIMOLOL 0.5% OPHTH DROPS 5 ML BTL BOTH EYES SCH (08:49)
[2022-01-21] MEDS: DORZOLAMIDE HCL 2% DROPS 10 ML BTL BOTH EYES SCH (08:49)
[2022-01-21] MEDS: LOSARTAN 25 MG TAB PO SCH (08:49)
[2022-01-21] MEDS: TAMSULOSIN 0.4 MG CAP.ER.24H PO SCH (08:49)
[2022-01-21] MEDS: BRIMONIDINE TARTRATE 0.2% DROPS 5 ML BTL BOTH EYES SCH (08:50)
[2022-01-21] MEDS: KETOROLAC 0.5% OPHTH DROPS 5 ML BTL LEFT EYE SCH ×2 (08:50→15:55)
[2022-01-21] MEDS: prednisoLONE ACETATE 1% OPHTH DROPS 5 ML BTL LEFT EYE SCH ×2 (08:50→15:55)
[2022-01-21] MEDS ORDERED: APIXABAN 5 MG TAB PO SCH (09:00)
[2022-01-21 09:52] LABS: African American GFR (CKD) >90 (>60 ml/min/1.73 sqM); Anion Gap 6 mmol/L; Blood Urea Nitrogen 8 mg/dL (9-20); Calcium 8.3 mg/dL (8.4-10.2); Carbon Dioxide 23 mmol/L (22-30); Chloride 107 mmol/L (98-107); Glucose 173 mg/dL (74-99); Magnesium 1.7 mg/dL (1.6-2.3); Non-African American GFR(CKD) >90 (>60 ml/min/1.73 sqM); Potassium 4.1 mmol/L (3.5-5.1); Sodium 136 mmol/L (137-145)
--- NOTE | 2022-01-21 10:27 | P.PN ---
Subjective Progress Note Date: 01/20/22 Patient was seen for a follow-up patient's family members were also present. Per patient's 5, he is back to baseline. He is a lot better. Per nurse report, when he woke up slightly confused but now he is fully oriented. Patient denies any headache, any numbness tingling, or dizziness. Offers no complaints. Patient is sitting comfortably in his bed. Objective - Vital Signs Vital signs: Vital Signs Temp 98.4 F 01/20/22 08:00 Pulse 58 L 01/20/22 17:00 Resp 23 01/20/22 17:00 BP 159/85 01/20/22 17:00 Pulse Ox 95 01/20/22 17:00 FiO2 Intake & Output 01/19/22 01/20/22 01/20/22 18:59 06:59 18:59 Intake Total 1033.445 750 820 Output Total 1125 945 200 Balance -91.555 -195 620 Weight 97 kg Intake: IV 690 750 50 0.9 sheath 40 Ampicillin 2,000 mg In 50 100 Sodium Chloride 0.9% 100 ml @ 200 mls/hr IVPB Q6HR [facility] Rx#:[id number] Sodium Chloride 0.9% 1, 600 650 50 000 ml @ 50 mls/hr IV . Q20H [facility] Rx#:[id number] Intake, IV Titration 93.445 350 Amount Heparin Sod,Pork in 0.45% 93.445 250 NaCl 25,000 unit In 0.45 % NaCl 1 250ml.bag @ 11. 03 UNITS/KG/HR 10.006 mls /hr IV .Q24H [facility] Rx#: [id number] Magnesium Sulfate-D5w Pmx 100 1 gm In Dextrose/Water 1 100ml.bag @ 100 mls/hr IVPB ONCE ONE Rx#: [id number] Oral 250 420 Output: Urine 1125 945 200 Other: Voiding Method Urinal Urinal Toilet Urinal # Voids 1 # Bowel Movements 1 - Exam Patient is alert and awake. Patient knows it is 01/21/2022 and that isn't [facility] in [facility]. Speech and language functions are normal. No aphasia or dysarthria. Cranial nerves are normal. Visual lucero are full. Face is symmetric and tongue protrudes the midline. Muscle strength no pronator drift and the strength is normal in arms and legs. No ataxia. Sensations equal. Gait deferred. - Labs CBC & Chem 7: 01/20/22 06:25 01/21/22 08:13 Labs: Abnormal Lab Results - Last 24 Hours (Table) 01/19/22 01/19/22 01/20/22 Range/Units 20:23 21:38 06:25 APTT 56.0 H 47.2 H (22.0-30.0) sec Chloride (98-107) mmol/L BUN (9-20) mg/dL Glucose (74-99) mg/dL POC Glucose (mg/dL) 157 H (70-110) mg/dL Calcium (8.4-10.2) mg/dL Total Protein (6.3-8.2) g/dL Albumin (3.5-5.0) g/dL 01/20/22 01/20/22 01/20/22 Range/Units 06:25 06:46 11:26 APTT (22.0-30.0) sec Chloride 109 H (98-107) mmol/L BUN 8 L (9-20) mg/dL Glucose 122 H (74-99) mg/dL POC Glucose (mg/dL) 114 H 229 H (70-110) mg/dL Calcium 8.1 L (8.4-10.2) mg/dL Total Protein 5.8 L (6.3-8.2) g/dL Albumin 3.2 L (3.5-5.0) g/dL 01/20/22 Range/Units 16:37 APTT (22.0-30.0) sec Chloride (98-107) mmol/L BUN (9-20) mg/dL Glucose (74-99) mg/dL POC Glucose (mg/dL) 279 H (70-110) mg/dL Calcium (8.4-10.2) mg/dL Total Protein (6.3-8.2) g/dL Albumin (3.5-5.0) g/dL Microbiology - Last 24 Hours (Table) 01/16/22 22:10 Blood Culture - Preliminary Blood No Growth after 72 hours 01/16/22 22:00 Blood Culture - Preliminary Blood No Growth after 72 hours Assessment and Plan Assessment: * Altered mental status, likely due to acute delirium, much improved today. Patient's mentation is back to baseline. * Acute UTI due to enterococcus faecalis, group D. * Atrial fibrillation, currently on heparin. * Acute non-STEMI. * Diabetes, not well controlled * Dyslipidemia Plan: * Patient has acute delirium, likely due to hospitalization, with multiple medical conditions as mentioned above, including UTI. * Patient's has noticed that he is slightly forgetful in the last few months. Patient's was recommended to follow-up in the neurology office for a detailed cognitive examination, after he is discharged, and the delirium is completely resolved. * 2-D echo revealed normal left ventricular ejection fraction 55-60%. Grade 2 diastolic dysfunction. Moderate aortic stenosis. Mild MR. * B12 308, folate > 20.0, hemoglobin A1c pending. Patient's TSH is normal 0.88. Will give B12 injection 1 and then start oral B12. * Patient has atrial fibrillation, will be started on Eliquis 5 mg twice a day from the morning. * No other neurological workup indicated. Neurologically clear.
[2022-01-21] MEDS ORDERED: CYANOCOBALAMIN 1,000 MCG/ML 1 ML VIAL IM ONE (10:35)
[2022-01-21] MEDS: FLUTICASONE 50MCG/SPRAY NASAL 16GM EA NOSTRIL SCH (10:46)
[2022-01-21] MEDS: SODIUM CHLORIDE 0.9% 1,000 ML IV SCH (10:51)
[2022-01-21 11:18] LABS: Glucose,Whole Blood 190 mg/dL (70-110)
--- NOTE | 2022-01-21 14:49 | PN ---
PROGRESS NOTE This patient is a gentleman with chronic atrial fibrillation with underlying sick sinus syndrome. Heart rates are in the 40-60 range. No significant issues. We will increase activity today. I am recommending he can be moved to telemetry. We will discontinue IV heparin and aspirin, place him on a combination of Plavix and Eliquis 5 mg b.i.d. Discussed my thoughts in detail with the patient. He has other blockages that can be addressed later on as an outpatient. Increase his activity, move him to telemetry. S1-S2 heard normally, irregular rhythm noted, short systolic murmur noted. Lungs reveal improved air entry. Abdomen is soft, nontender. Lower extremities reveal palpable pulses. No edema. Central nervous system is normal. MMODL / IJN: [id number] /
[2022-01-21] MEDS: MAGNESIUM SULFATE-D5W PMX 1 GM in DEXTROSE/WATER 1 100ML.BAG IVPB SCH ×2 (14:57→15:14)
--- NOTE | 2022-01-21 15:29 | P.DS ---
Providers Date of admission: 01/15/22 14:00 Expected date of discharge: 01/21/22 Attending physician: Lotus Melara MD Consults: 01/15/22 13:46 Consult Physician Routine Consulting Provider: Jas Mejia Consult Reason/Comments: symptomatic bradycardia Do you want consulting provider notified?: Yes 01/17/22 13:06 Consult Physician Routine Consulting Provider: [facility] Consult Reason/Comments: Post Interventional Patient Do you want consulting provider notified?: Already Contacted 01/18/22 21:50 Consult Physician Stat Consulting Provider: Vazquez Belcher Consult Reason/Comments: New onset confusion Do you want consulting provider notified?: Yes Primary care physician: [facility] Course: 81-year-old male who presents to the emergency department with a chief complaint of generalized weakness and intermittent episodes of dizziness 5 days. Patient states he overall feels very tired and has episodes where he feels as if the room is spinning and feels very unsteady on his feet. Patient denies syncope, chest pain, and shortness of breath. Patient states these episodes have never happened before. He does not have heart history according to him but has problems with aorta in the past that he is not able to explain. States his feet and legs have been getting more swollen the past week. Denies fever, chills, abdominal pain, back pain, nausea, vomiting, burning with urination, increased urinary frequency, blood in the urine, and blood in the stool. Patient was noted to be bradycardic, thought to be related to sick sinus syn drome with history of atrial fibrillation. Patient was admitted to ICU for closer monitoring and further management. Cardiology was consulted. Patient underwent cardiac catheterization and PCI was performed to the left circumflex. He was noted to have 90% occlusion of the RCA and distal CEDENO to LAD. He was initially on a heparin drip for anticoagulation and treatment of atrial fibrillation which was switched to request at the time of discharge. Patient also received 3 days of ampicillin for Enterobacter UTI. His Synthroid was increased from 115 to 125 g by mouth daily. He did have altered mentation during his hospitalization. Brain CT was performed which was negative. Neurology was consulted and thought that his altered mentation was due to acute delirium which improved at the time of discharge. His B12 was replaced. Cardiology recommended outpatient follow-up and cleared the patient for discharge on 01/21/2022. He was advised to follow-up with his PCP within 1-2 days of discharge. He was advised to follow-up with cardiology within 1 week of discharge. He was advised bedrest and to not exert himself. He is advised to come back to the ED for worsening chest pain, shortness breath, palpitations or lightheadedness. Him and family verbalized understanding of the plan. Patient was seen and examined on 01/21/2022. No acute events overnight. His heart rate is currently in the 50s and 60s. He denies any chest pain, shortness of breath, palpitations or lightheadedness. General: [non toxic], [no distress], [appears at stated age] Derm: [warm], [dry] Head: [atraumatic], [normocephalic], [symmetric] Eyes: [EOMI], [no lid lag], [anicteric sclera] Mouth: [no lip lesion], [mucus membranes moist] Cardiovascular: [Irregularly regular], [systolic murmur], [Heart rate 50-60] Lungs: [CTA bilateral], [no rhonchi, no rales] , [no accessory muscle use] Ext: [no gross muscle atrophy], [no edema], [no contractures] Neuro: [no focal neuro deficits] Psych: [Alert], [oriented], [appropriate affect] Discharge diagnosis: Lightheadedness likely related to bradycardia Atrial fibrillation Non-ST elevation [place] UTI Diabetes mellitus with hypoglycemia Altered mentation, resolved Chronic conditions: Hypertension, dyslipidemia, dementia, moderate aortic stenosis This complex discharge took about 45 minutes to complete. Pertinent Studies: Brain CT, echocardiogram, EKG, chest x-ray Procedures: Cardiac catheterization Patient Condition at Discharge: Stable Plan - Discharge Summary Discharge Rx Participant: No New Discharge Prescriptions: New Nitroglycerin Sl Tabs [Nitrostat] 0.4 mg SUBLINGUAL Q5M PRN #14 tab PRN Reason: Chest Pain amLODIPine [Norvasc] 5 mg PO DAILY #30 tab Clopidogrel [Plavix] 75 mg PO DAILY #30 tab Levothyroxine Sodium [Synthroid] 125 mcg PO DAILY@0630 #30 tab Cyanocobalamin [Vitamin B-12] 1,000 mcg PO DAILY #60 tab Continue Insulin Glargine [Lantus Vial] 35 unit SQ HS Atorvastatin [Lipitor] 40 mg PO HS metFORMIN HCL [Glucophage] 1,000 mg PO BID Tamsulosin HCl [Flomax] 0.8 mg PO DAILY Losartan Potassium [Cozaar] 25 mg PO DAILY Apixaban [Eliquis] 5 mg PO BID Insulin Aspart [NovoLOG Flexpen] See Protocol SQ AC-TID Cholecalciferol [Vitamin D3 (125 Mcg = 5000 Iu)] 125 mcg PO DAILY Fluticasone Nasal [place] [Flonase Nasal [place]] 2 spr EA NOSTRIL DAILY Brimonidine Tartrate/Timolol [Combigan 0.2%-0.5% Eye Drops] 1 drop BOTH EYES BID Testosterone Cypionate [Depo-Testosterone] 200 mg IM Q21D Netarsudil Mesylat/Latanoprost [Rocklatan 0.02%-0.005% Eye Drp] 1 drop BOTH EYES HS Dorzolamide HCl/Pf [Dorzolamide 2% Eye Drop] 1 drop BOTH EYES BID Prednisolone Acetate/Pf [Prednisolone Acet 1% Eye Drop] 1 drop LEFT EYE QID Ketorolac 0.5% Ophth Soln [Acular 0.5%] 1 drop LEFT EYE QID Finasteride [Proscar] 5 mg PO DAILY Bromfenac Sodium [Prolensa Ophth Soln] Discontinued Levothyroxine Sodium [Synthroid] 112 mcg PO DAILY Discharge Medication List Apixaban [Eliquis] 5 mg PO BID 03/12/19 [History] Atorvastatin [Lipitor] 40 mg PO HS 03/12/19 [History] Insulin Aspart [NovoLOG Flexpen] See Protocol SQ AC-TID 03/12/19 [History] Insulin Glargine [Lantus Vial] 35 unit SQ HS 03/12/19 [History] Losartan Potassium [Cozaar] 25 mg PO DAILY 03/12/19 [History] Tamsulosin HCl [Flomax] 0.8 mg PO DAILY 03/12/19 [History] metFORMIN HCL [Glucophage] 1,000 mg PO BID 03/12/19 [History] Brimonidine Tartrate/Timolol [Combigan 0.2%-0.5% Eye Drops] 1 drop BOTH EYES BID 09/25/21 [History] Cholecalciferol [Vitamin D3 (125 Mcg = 5000 Iu)] 125 mcg PO DAILY 09/25/21 [ History] Dorzolamide HCl/Pf [Dorzolamide 2% Eye Drop] 1 drop BOTH EYES BID 09/25/21 [History] Fluticasone Nasal [place] [Flonase Nasal [place]] 2 spr EA NOSTRIL DAILY 09/25/21 [History] Netarsudil Mesylat/Latanoprost [[place] 0.02%-0.005% Eye Drp] 1 drop BOTH EYES HS 09/25/21 [History] Testosterone Cypionate [Depo-Testosterone] 200 mg IM Q21D 09/25/21 [History] Bromfenac Sodium [Prolensa Ophth Soln] 01/15/22 [History] Finasteride [Proscar] 5 mg PO DAILY 01/15/22 [History] Ketorolac 0.5% Ophth Soln [Acular 0.5%] 1 drop LEFT EYE QID 01/15/22 [History] Prednisolone Acetate/Pf [Prednisolone Acet 1% Eye Drop] 1 drop LEFT EYE QID 01/15/22 [History] Clopidogrel [Plavix] 75 mg PO DAILY #30 tab 01/21/22 [Rx] Cyanocobalamin [Vitamin B-12] 1,000 mcg PO DAILY #60 tab 01/21/22 [Rx] Levothyroxine Sodium [Synthroid] 125 mcg PO DAILY@0630 #30 tab 01/21/22 [Rx] Nitroglycerin Sl Tabs [Nitrostat] 0.4 mg SUBLINGUAL Q5M PRN #14 tab 01/21/22 [Rx] amLODIPine [Norvasc] 5 mg PO DAILY #30 tab 01/21/22 [Rx] Follow up Appointment(s)/Referral(s): Can Giles DO [STAFF PHYSICIAN] - 1 Week Sharif Tamayo DO [Primary Care Provider] - 1-2 days Activity/Diet/Wound Care/Special Instructions: Diet: Cardiac Follow up with your PCP within 1-2 days of discharge. Follow up with Cardiology Dr. Giles within 1 week of discharge. Take all medications as advised. Come back to the ED for worsening chest pain, shortness of breath, palpitations or dizziness. Discharge Disposition: HOME SELF-CARE
[2022-01-21 16:01] VITALS: BP 152/116; PULSE 42; RESP 14; TEMP 98.4
[2022-01-21] MEDS ORDERED: FLUTICASONE 50MCG/SPRAY NASAL 16GM EA NOSTRIL SCH (21:00)
[2022-01-22] MEDS ORDERED: CYANOCOBALAMIN 500 MCG TAB PO SCH (09:00)
--- NOTE | 2022-01-25 00:50 | P.PN ---
Subjective Progress Note Date: 01/21/22 Patient was seen for a follow-up. Patient's was also present. Per patient's , he is back to baseline. He is a lot better. Patient denies any headache, any numbness tingling, or dizziness. Offers no complaints. Patient is sitting comfortably in his bed. He is ready for discharge. Objective - Vital Signs Vital signs: Vital Signs Temp 98.4 F 01/21/22 16:00 Pulse 42 L 01/21/22 16:00 Resp 14 01/21/22 16:00 BP 152/116 01/21/22 16:00 Pulse Ox 94 L 01/21/22 16:00 FiO2 Intake & Output 01/20/22 01/21/22 01/21/22 18:59 06:59 18:59 Intake Total 2280 450 1050 Output Total 600 700 600 Balance 1680 -250 450 Weight 97.5 kg Intake: IV 450 100 350 Sodium Chloride 0.9% 1, 450 100 350 000 ml @ 50 mls/hr IV . Q20H [facility] Rx#:[id number] Intake, IV Titration 450 350 200 Amount Ampicillin 2,000 mg In 100 100 100 Sodium Chloride 0.9% 100 ml @ 200 mls/hr IVPB Q6H [facility] Rx#:[id number] Heparin Sod,Pork in 0.45% 250 250 NaCl 25,000 unit In 0.45 % NaCl 1 250ml.bag @ 11. 03 UNITS/KG/HR 10.006 mls /hr IV .Q24H [facility] Rx#: [id number] Magnesium Sulfate-D5w Pmx 100 1 gm In Dextrose/Water 1 100ml.bag @ 100 mls/hr IVPB ONCE ONE Rx#: [id number] Magnesium Sulfate-D5w Pmx 100 1 gm In Dextrose/Water 1 100ml.bag @ 100 mls/hr IVPB Q1H [facility] Rx#: [id number] Oral 1380 500 Output: Urine 600 700 600 Other: Voiding Method Toilet Toilet Toilet Urinal Urinal Urinal - Exam Patient is alert and awake. Patient is fully oriented. Speech and language functions are normal. No aphasia or dysarthria. Cranial nerves are normal. Visual lucero are full. Face is symmetric and tongue protrudes the midline. Muscle strength no pronator drift and the strength is normal in arms and legs. No ataxia. Sensations equal. Gait deferred. - Labs CBC & Chem 7: 01/20/22 06:25 01/21/22 08:13 Labs: Abnormal Lab Results - Last 24 Hours (Table) 01/20/22 01/20/22 01/21/22 Range/Units 16:37 19:40 06:34 APTT (22.0-30.0) sec Sodium (137-145) mmol/L BUN (9-20) mg/dL Glucose (74-99) mg/dL POC Glucose (mg/dL) 279 H 239 H 129 H (70-110) mg/dL Calcium (8.4-10.2) mg/dL 01/21/22 01/21/22 01/21/22 Range/Units 08:13 08:13 11:17 APTT 67.1 H (22.0-30.0) sec Sodium 136 L (137-145) mmol/L BUN 8 L (9-20) mg/dL Glucose 173 H (74-99) mg/dL POC Glucose (mg/dL) 190 H (70-110) mg/dL Calcium 8.3 L (8.4-10.2) mg/dL Microbiology - Last 24 Hours (Table) 01/16/22 22:10 Blood Culture - Preliminary Blood No Growth after 96 hours 01/16/22 22:00 Blood Culture - Preliminary Blood No Growth after 96 hours Assessment and Plan Assessment: * Altered mental status, likely due to acute delirium, much improved today. Patient's mentation is back to baseline. * Acute UTI due to enterococcus faecalis, group D. * Atrial fibrillation, currently on Eliquis. * Acute non-STEMI. * Diabetes, not well controlled * Episode of hypoglycemia on 01/17/2022. * Dyslipidemia Plan: * Patient's delirium/metabolic encephalopathy has completely resolved. It was likely due to acute UTI. * Patient's has noticed that he is slightly forgetful in the last few months. Patient's was recommended to follow-up in the neurology office for a detailed cognitive examination, after he is discharged, and the delirium is completely resolved. * 2-D echo revealed normal left ventricular ejection fraction 55-60%. Grade 2 diastolic dysfunction. Moderate aortic stenosis. Mild MR. * B12 308, folate > 20.0, hemoglobin A1c pending. Can be performed as an outpatient. Patient's TSH is normal 0.88. Patient has received B12 injection 1 and then start oral B12. * Patient has atrial fibrillation, will be started on Eliquis 5 mg twice a day from the morning. Also on Plavix 75 mg daily for cardiac reasons. * Avoid any episodes of hypoglycemia. * No other neurological workup indicated. Neurologically clear.
== END 2022-01-21 17:32 | disposition home or self-care (01) | DRG 280 ==
LOC: EC 10:34 → 3SCARD 14:00 → 2SICU 01-17 10:12
PROVIDERS: ADMIT Internal Medicine; ATTEND Internal Medicine
DX: I21.4 Non-ST elevation (NSTEMI) myocardial infarction (principal); G93.41 Metabolic encephalopathy; I48.19 Other persistent atrial fibrillation; N39.0 Urinary tract infection, site not specified; R42 Dizziness and giddiness; E03.9 Hypothyroidism, unspecified; E11.649 Type 2 diabetes mellitus with hypoglycemia without coma; E78.5 Hyperlipidemia, unspecified; E83.42 Hypomagnesemia; I35.0 Nonrheumatic aortic (valve) stenosis; I49.5 Sick sinus syndrome; F17.220 Nicotine dependence, chewing tobacco, uncomplicated; I10 Essential (primary) hypertension; F03.90 Unspecified dementia, unspecified severity, without behavioral disturbance, psychotic disturbance, mood disturbance, and anxiety; B95.2 Enterococcus as the cause of diseases classified elsewhere; I25.10 Atherosclerotic heart disease of native coronary artery without angina pectoris; Z98.61 Coronary angioplasty status; Z95.1 Presence of aortocoronary bypass graft; Z79.01 Long term (current) use of anticoagulants; Z79.4 Long term (current) use of insulin; Z79.84 Long term (current) use of oral hypoglycemic drugs; Z79.890 Hormone replacement therapy; Z79.899 Other long term (current) drug therapy; Z96.659 Presence of unspecified artificial knee joint
CPT/HCPCS: 36415; 36600; 70450; 71046; 80048; 80053; 80069; 81001; 82565; 82607; 82746; 82805; 83605; 83735; 83880; 84145; 84443; 84484; 85025; 85610; 85730; 86850; 86900; 86901; 87040; 87077; 87086; 87186; 92953; 93005; 93306; 93455; 96360; 96361; 99285

== ENCOUNTER 2022-10-27 06:38 | Day surgery (SDC) | payer MEDICARE ==
[2022-10-21 14:58] VITALS: BMI 30.1
[2022-10-27] MEDS ORDERED: ceFAZolin 1 GM in SODIUM CHLORIDE 0.9% IRRIG BTL 250 ML IRRIGATION PRN (07:00)
[2022-10-27] MEDS: SODIUM CHLORIDE 0.9% 1,000 ML IV SCH ×3 (07:14→20:52)
[2022-10-27 07:17] LABS: Glucose,Whole Blood 72 mg/dL (70-110)
[2022-10-27 07:34] LABS: Basophils % (A) 0 %; Eosinophils # (A) 0.2 k/uL (0-0.7); Eosinophils % (A) 2 %; HCT 42.9 % (39.0-53.0); HGB 15.3 gm/dL (13.0-17.5); Lymphocytes # (A) 2.1 k/uL (1.0-4.8); Lymphocytes % (A) 20 %; MCH 32.1 pg (25.0-35.0); MCHC 35.8 g/dL (31.0-37.0); MCV 89.6 fL (80.0-100.0); Mean Platelet Volume 7.8; Monocytes # (A) 0.8 k/uL (0-1.0); Monocytes % (A) 7 %; Neutrophils # (A) 7.3 k/uL (1.3-7.7); Neutrophils % (A) 69 %; Platelet Count 201 k/uL (150-450); RBC 4.79 m/uL (4.30-5.90); WBC 10.6 k/uL (3.8-10.6)
[2022-10-27 07:38] LABS: African American GFR (CKD) >90 (>60 ml/min/1.73 sqM); Anion Gap 9 mmol/L; Blood Urea Nitrogen 19 mg/dL (9-20); Calcium 9.7 mg/dL (8.4-10.2); Carbon Dioxide 28 mmol/L (22-30); Chloride 104 mmol/L (98-107); Glucose 71 mg/dL (74-99); Non-African American GFR(CKD) 85 (>60 ml/min/1.73 sqM); Potassium 4.2 mmol/L (3.5-5.1); Sodium 141 mmol/L (137-145)
[2022-10-27] MEDS ORDERED: IOPAMIDOL-370 100ML BTL INJ ONE (08:15)
[2022-10-27] MEDS ORDERED: LIDOCAINE 1% INJ 10MG/ML (20 ML MDV) ONE ×2 (08:25→08:49)
[2022-10-27] MEDS ORDERED: fentaNYL (PF) 50 MCG/ML 2 ML AMP ONE (08:27)
[2022-10-27] MEDS ORDERED: MIDAZOLAM 2 MG/2 ML VIAL IV ONE (08:33)
[2022-10-27] MEDS ORDERED: fentaNYL (PF) 50 MCG/ML 2 ML AMP IV ONE (08:33)
[2022-10-27] MEDS ORDERED: IV FLUID CONTINUATION 500 ML IV ONE (08:33)
[2022-10-27] MEDS ORDERED: LIDOCAINE 1% INJ 10MG/ML (20 ML MDV) SQ ONE (08:40)
--- NOTE | 2022-10-27 10:50 | P.PCN ---
Description of Procedure: CARDIOLOGY PROCEDURE NOTE Maintenance Trainer: Dr. Can Giles HPI: Patient is a pleasant 82-year-old male with history of persistent atrial fibrillation, CAD, hypertension, syncope. He had previously presented with syncope and bradycardia and remained bradycardic with heart rates in the 30s to 40s despite holding any AV loreto blocking agents as well as ruling out any reversible causes. He has remained bradycardic with heart rates in the 30s to 40s when he presented for heart catheterization as well as documentation in the office with continued fatigue and lightheadedness. He was diagnosed with sick sinus syndrome however has been hesitant to undergo permanent pacemaker. He has been agreeable and all risks and benefits were explained. Procedure performed: Insertion dual chamber permanent pacemaker Site: Left subclavian Indications: Sick Sinus Syndrome Complications: None Blood Loss: Minimal Description of Procedure: After the risks, benefits, and alternatives of the above-mentioned procedure was explained in detail with the patient, informed consent was obtained. The patient was taken to the cardiac catheterization suite where the left subclavian area was sterily prepped and draped in the usual fashion. One percent lidocaine was used to anesthetize the left subclavian area. Twenty milliliters of Isoview 370 contrast was injected into the left antecubital vein to allow for direct visualization of the left subclavian vein under fluoroscopy. A 1.5 inch incision was made utilizing a #15 blade in the left subclavian site. Hemostasis was made complete. Electrocautery along with digital blunt dissection was utilized to dissect to the level of the pectoralis muscle fascia and create a pocket large enough to accommodate the generator. A thin walled micro puncuture needle was used to cannulate the left subclavian vein. A guide-wire was inserted through the needle into the vascular lumen under fluoroscopic guidance. The needle was removed. Another thin walled micr puncture needle was used to again cannulate the left subclavian vein. A guide-wire was inserted through the needle into the vascular lumen under fluoroscopic guidance. The needle was removed and both guide-wires were attached to the field. A venous sheath and dilator were advanced over the guidewire into the vascular lumen under fluoroscopic guidance. The dilator and guidewire were then removed. A right ventricular bipolar lead was inserted into the sheath and advanced under fluoroscopic guidance into the right ventricle under fluoroscopic guidance. Initially adequate sensing and pacing thresholds and lead was screwed in place however pacing thresholds had decreased and therefore repositioned. Adequate sensing and pacing thresholds were achieved and the lead was screwed into place in the RV apex. The sheath was then torn away. The lead collar was advanced and anchored into place utilizing #0 silk suture. Next, another venous sheath and dilator were advanced under fluoroscopic guidance into the vascular lumen over the guidewire. After removal of the dilator and guidewire, a right atrial bipolar lead was inserted into this sheath and advanced under fluoroscopic guidance into the right atrium. The lead was positioned into the right atrial appendage. Adequate sensing and pacing thresholds were then achieved with patient being in Aflutter at the time and the lead was screwed into place. The sheath was then torn away. The lead collar was advanced and anchored into place utilizing #0 silk suture. The leads were then inserted into the appropriate position into the generator. They were then secured with the setscrew provided. The leads and generator were inserted into the pocket with the leads posterior. The subcutaneous tissue was approximated utilizing #2.0 and 3.0 vicryl in an interrupted stitch fashion. The dermal layer was approximated utilizing #4.0 vicryl. The area was cleansed with sterile saline and dried. A sterile 4x4 dressing was applied and the patient was transferred to the post catheterization holding area in stable and satisfactory condition. The patient tolerated the procedure well. Generator Data Director Of Individual Giving: [employer] Brand: [id number] Bernie XT DR MRI Model #: W1DR01 Serial#: [id number] Right Atrial Bipolar Lead Data: Type: Active fixation lead Director Of Individual Giving: [employer] Model#: 5076-52 Serial Number: [id number] Right Ventricular Bipolar Lead Data: Type: Active fixation lead Director Of Individual Giving: [employer] Model #: 5076-58 Serial #: [id number] Stimulation Thresholds: Right atrial bipolar lead pacing and sensing thresholds Voltage: Afib Impedance: 1121 ohms P-wave sensin.0 mV Right Ventricular bipolar lead pacing and sensing thresholds Pulse Width: 0.4ms Voltage: 18 volts Impedance: 893 ohms R-wave sensin.75 mV Parameter Setting: Pacing mode is DDDR Lower rate 60 bpm Upper rate 130 bpm Impressions: 1. Successful implantation of a dual chamber permanent pacemaker in the left pectoral site. Plan: 1. Routine post procedure care will be instituted as well as outpatient follow- up surveillance.
[2022-10-27] MEDS ORDERED: FLUTICASONE 50MCG/SPRAY NASAL 16GM EA NOSTRIL PRN (11:05)
[2022-10-27] MEDS ORDERED: NITROGLYCERIN SL TABS 0.4 MG TAB SUBLINGUAL PRN (11:05)
[2022-10-27] MEDS ORDERED: TEMAZEPAM 15 MG CAP PO PRN (11:05)
[2022-10-27] MEDS ORDERED: ACETAMINOPHEN TAB 325 MG TAB PO PRN (11:08)
--- NOTE | 2022-10-27 15:14 | XR ---
EXAMINATION TYPE: XR chest 1V portable DATE OF EXAM: 10/27/2022 3:06 PM COMPARISON: Chest radiographs from 01/15/2022 TECHNIQUE: XR chest 1V portable Portable AP radiograph of the chest. CLINICAL INDICATION:Male, 82 years old with history of Lead placement check; FINDINGS: Lungs/Pleura: There is no evidence of pleural effusion, focal consolidation, or pneumothorax. Sohail s enescent parenchymal change. Pulmonary vascularity: Unremarkable. Heart/mediastinum: Cardiomediastinal silhouette is prominent and stable. Atherosclerotic calcificati ons are seen in the aorta. Two lead cardiac conduction device overlying the left hemithorax with lead tips projecting over the right ventricle and right atrium. Musculoskeletal: No acute osseous pathology. Midline sternotomy wires are noted and stable. IMPRESSION: Interval placement of left chest cardiac conduction device with leads projecting over the right ventr icle and atrium.
[2022-10-27 17:28] LABS: Glucose,Whole Blood 232 mg/dL (70-110)
[2022-10-27 20:43] LABS: Glucose,Whole Blood 309 mg/dL (70-110)
[2022-10-27] MEDS: metFORMIN 500 MG TAB PO SCH (20:49)
[2022-10-27] MEDS: BRIMONIDINE TARTRATE 0.2% DROPS 5 ML BTL BOTH EYES SCH (20:51)
[2022-10-27] MEDS: DORZOLAMIDE HCL 2% DROPS 10 ML BTL BOTH EYES SCH (20:51)
[2022-10-27] MEDS: TIMOLOL 0.5% OPHTH DROPS 5 ML BTL BOTH EYES SCH (20:51)
[2022-10-27] MEDS ORDERED: Netarsudil Mesylat/Latanoprost [Rocklatan 0.02%-0.005% Eye Drp] 2.5 ML BOTH EYES SCH (21:00)
[2022-10-27] MEDS ORDERED: INSULIN DETEMIR (LEVEMIR) 100 UNIT/ML SYR SQ SCH (21:00)
[2022-10-27] MEDS ORDERED: ATORVASTATIN 40 MG TAB PO SCH (21:00)
[2022-10-27] MEDS ORDERED: ATORVASTATIN 80 MG TAB PO SCH (21:00)
[2022-10-28] MEDS: SODIUM CHLORIDE 0.9% 1,000 ML IV SCH (02:44)
[2022-10-28] MEDS ORDERED: LEVOTHYROXINE 112 MCG TAB PO SCH (06:30)
--- NOTE | 2022-10-28 07:28 | XR ---
EXAMINATION TYPE: XR chest 2V DATE OF EXAM: 10/28/2022 7:19 AM COMPARISON: Chest radiographs from 10/27/2022 TECHNIQUE: XR chest 2V Frontal and lateral views of the chest. CLINICAL INDICATION:Male, 82 years old with history of Lead placement check; FINDINGS: Lungs/Pleura: There is no evidence of pleural effusion, focal consolidation, or pneumothorax. Chroni c senescent parietal change. 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 Pulmonary vascularity: Unremarkable. Heart/mediastinum: Cardiomediastinal silhouette is prominent and stable. Atherosclerotic calcificati ons are seen in the aorta. Two lead cardiac conduction device overlying the left hemithorax with lead tips projecting over the right ventricle and right atrium. Musculoskeletal: No acute osseous pathology. Midline sternotomy wires are noted and stable. Similar m ild anterior wedging of a couple mid thoracic vertebral bodies with accentuated mid thoracic kyphosis . IMPRESSION: No significant change from prior examination with interval placement of left chest cardiac conduction device with leads projecting over the right ventricle and atrium.
[2022-10-28 07:39] LABS: Glucose,Whole Blood 74 mg/dL (70-110)
[2022-10-28 08:03] VITALS: RESP 16
[2022-10-28] MEDS: metFORMIN 500 MG TAB PO SCH (08:12)
[2022-10-28] MEDS: DORZOLAMIDE HCL 2% DROPS 10 ML BTL BOTH EYES SCH (08:14)
[2022-10-28] MEDS: BRIMONIDINE TARTRATE 0.2% DROPS 5 ML BTL BOTH EYES SCH (08:14)
[2022-10-28] MEDS: TIMOLOL 0.5% OPHTH DROPS 5 ML BTL BOTH EYES SCH (08:16)
[2022-10-28] MEDS ORDERED: CYANOCOBALAMIN 500 MCG TAB PO SCH (09:00)
[2022-10-28] MEDS ORDERED: LOSARTAN 25 MG TAB PO SCH (09:00)
[2022-10-28] MEDS ORDERED: ZINC SULFATE 220 MG CAP PO SCH (09:00)
[2022-10-28] MEDS ORDERED: TAMSULOSIN 0.4 MG CAP.ER.24H PO SCH (09:00)
[2022-10-28] MEDS ORDERED: CHOLECALCIFEROL 125 MCG (5000 IU) TABLET PO SCH (09:00)
[2022-10-28] MEDS ORDERED: FINASTERIDE 5 MG TAB PO SCH (09:00)
[2022-10-28] MEDS ORDERED: CLOPIDOGREL 75 MG TAB PO SCH (09:00)
[2022-10-28] MEDS ORDERED: amLODIPine 5 MG TAB PO SCH (09:00)
[2022-10-28] MEDS ORDERED: GABAPENTIN 300 MG CAP PO SCH (09:00)
[2022-10-28] MEDS ORDERED: ASCORBIC ACID 500 MG TAB PO SCH (09:00)
[2022-10-28 12:41] LABS: Glucose,Whole Blood 141 mg/dL (70-110)
[2022-10-28 14:30] VITALS: BP 124/76; PULSE 67; TEMP 98.5
--- NOTE | 2022-10-29 12:57 | P.DS ---
Providers Attending physician: Can Giles DO [facility] Course: Patient is a pleasant 82-year-old male with history of persistent atrial fibrillation, CAD, hypertension, syncope. He had previously presented with syncope and bradycardia and remained bradycardic with heart rates in the 30s to 40s despite holding any AV loreto blocking agents as well as ruling out any reversible causes. He has remained bradycardic with heart rates in the 30s to 40s when he presented for heart catheterization as well as documentation in the office with continued fatigue and lightheadedness. He was diagnosed with sick sinus syndrome however has been hesitant to undergo permanent pacemaker. He eventually presented for elective dual-chamber permanent pacemaker which was placed 10/27/2022. There were no significant complications and repeat interrogation showed stable pacing and sensing parameters and patient was stable for discharge home 10/28/2022. Plan - Discharge Summary Discharge Rx Participant: Yes New Discharge Prescriptions: Continue Insulin Glargine [Lantus Vial] 35 unit SQ HS Atorvastatin [Lipitor] 40 mg PO HS metFORMIN HCL [Glucophage] 1,000 mg PO BID Tamsulosin HCl [Flomax] 0.8 mg PO DAILY Losartan Potassium [Cozaar] 25 mg PO DAILY Apixaban [Eliquis] 5 mg PO BID Insulin Aspart [NovoLOG Flexpen] See Protocol SQ AC-TID PRN PRN Reason: scale Cholecalciferol [Vitamin D3 (125 Mcg = 5000 Iu)] 125 mcg PO DAILY Fluticasone Nasal [place] [Flonase Nasal [place]] 2 spr EA NOSTRIL HS PRN PRN Reason: Congestion Nitroglycerin Sl Tabs [Nitrostat] 0.4 mg SUBLINGUAL Q5M PRN #14 tab PRN Reason: Chest Pain amLODIPine [Norvasc] 5 mg PO DAILY #30 tab Clopidogrel [Plavix] 75 mg PO DAILY #30 tab Levothyroxine Sodium [Synthroid] 112 mcg PO DAILY@0630 Rosuvastatin Calcium 40 mg PO HS Brimonidine Tartrate/Timolol [Combigan 0.2%-0.5% Eye Drops] 1 drop BOTH EYES BID Netarsudil Mesylat/Latanoprost [Rocklatan 0.02%-0.005% Eye Drp] 1 drop BOTH EYES HS Dorzolamide HCl/Pf [Dorzolamide 2% Eye Drop] 1 drop BOTH EYES BID Finasteride [Proscar] 5 mg PO DAILY Cyanocobalamin [Vitamin B-12] 1,000 mcg PO DAILY #60 tab Zinc 50 mg PO DAILY Ascorbic Acid [Vitamin C] 500 mg PO DAILY Temazepam [Restoril] 15 mg PO HS PRN PRN Reason: Insomnia Gabapentin 300 mg PO DAILY Discharge Medication List Apixaban [Eliquis] 5 mg PO BID 03/12/19 [History] Atorvastatin [Lipitor] 40 mg PO HS 03/12/19 [History] Insulin Aspart [NovoLOG Flexpen] See Protocol SQ AC-TID PRN 03/12/19 [History] Insulin Glargine [Lantus Vial] 35 unit SQ HS 03/12/19 [History] Losartan Potassium [Cozaar] 25 mg PO DAILY 03/12/19 [History] Tamsulosin HCl [Flomax] 0.8 mg PO DAILY 03/12/19 [History] metFORMIN HCL [Glucophage] 1,000 mg PO BID 03/12/19 [History] Brimonidine Tartrate/Timolol [Combigan 0.2%-0.5% Eye Drops] 1 drop BOTH EYES BID 09/25/21 [History] Cholecalciferol [Vitamin D3 (125 Mcg = 5000 Iu)] 125 mcg PO DAILY 09/25/21 [History] Dorzolamide HCl/Pf [Dorzolamide 2% Eye Drop] 1 drop BOTH EYES BID 09/25/21 [History] Fluticasone Nasal [place] [Flonase Nasal [place]] 2 spr EA NOSTRIL HS PRN 09/25/21 [History] Netarsudil Mesylat/Latanoprost [Rocklatan 0.02%-0.005% Eye Drp] 1 drop BOTH EYES HS 09/25/21 [History] Finasteride [Proscar] 5 mg PO DAILY 01/15/22 [History] Clopidogrel [Plavix] 75 mg PO DAILY #30 tab 01/21/22 [Rx] Cyanocobalamin [Vitamin B-12] 1,000 mcg PO DAILY #60 tab 01/21/22 [Rx] Nitroglycerin Sl Tabs [Nitrostat] 0.4 mg SUBLINGUAL Q5M PRN #14 tab 01/21/22 [Rx] amLODIPine [Norvasc] 5 mg PO DAILY #30 tab 01/21/22 [Rx] Ascorbic Acid [Vitamin C] 500 mg PO DAILY 02/25/22 [History] Levothyroxine Sodium [Synthroid] 112 mcg PO DAILY@0630 02/25/22 [History] Zinc 50 mg PO DAILY 02/25/22 [History] Gabapentin 300 mg PO DAILY 10/21/22 [History] Rosuvastatin Calcium 40 mg PO HS 10/21/22 [History] Temazepam [Restoril] 15 mg PO HS PRN 10/21/22 [History] Follow up Appointment(s)/Referral(s): Can Giles DO [STAFF PHYSICIAN] - 1 Week (THE OFFICE WILL CALL YOU WITH AN APPOINTMENT DATE AND TIME ) Patient Instructions/Handouts: Moderate Sedation (DC), Pacemaker (DC) Activity/Diet/Wound Care/Special Instructions: *Start your Eliquis tomorrow 10/28 Discharge Disposition: HOME SELF-CARE
== END 2022-10-28 14:45 | disposition home or self-care (01) ==
LOC: CATHEP 06:38 → 6NMEDSUR 10:57 → CATHEP 10-28 14:45
PROVIDERS: ATTEND Internal Medicine
DX: I49.5 Sick sinus syndrome (principal); I25.10 Atherosclerotic heart disease of native coronary artery without angina pectoris; I10 Essential (primary) hypertension; I48.19 Other persistent atrial fibrillation; R55 Syncope and collapse
CPT/HCPCS: 33208; 80048; 85025; 71045; 71046; C1892; C1898; C1769; C1785; S0138; J2250; J0690 ×2; J2001; J3010; Q9967

== ENCOUNTER 2024-10-22 14:55 | Inpatient (IN) | payer MEDICARE ==
[2024-10-22 15:02] LABS: Glucose,Whole Blood 116 mg/dL (70-110)
--- NOTE | 2024-10-22 15:54 | ED ---
General Adult HPI - General Chief complaint: Extremity Injury, Lower Stated complaint: L Foot Pain Time Seen by Provider: 10/22/24 15:00 Source: patient, family, RN notes reviewed, old records reviewed Mode of arrival: wheelchair Limitations: no limitations - History of Present Illness Initial comments: This is an 84-year-old male who was sent in by the insurance claim representative. Patient has had a wound on his left first toe but lately has become more sore and more red and the redness seems to be spreading up the foot as does the swelling. Patient states he also has some swelling in the anterior leg. Patient states all of this pain is new. Patient denies any new injury. Patient has any fever or chills. Patient did have some vomiting yesterday but no nausea or vomiting today. Patient denies any other symptoms at this time. - Related Data Home Medications Medication Instructions Recorded Confirmed Apixaban [Eliquis] 5 mg PO BID 03/12/19 10/27/22 Atorvastatin [Lipitor] 40 mg PO HS 03/12/19 10/27/22 Insulin Aspart [NovoLOG Flexpen] See Protocol SQ AC-TID PRN 03/12/19 10/27/22 Insulin Glargine (Lantus) [Lantus 35 unit SQ HS 03/12/19 10/27/22 Vial] Losartan Potassium [Cozaar] 25 mg PO DAILY 03/12/19 10/27/22 Tamsulosin HCl [Flomax] 0.8 mg PO DAILY 03/12/19 10/27/22 metFORMIN HCL [Glucophage] 1,000 mg PO BID 03/12/19 10/27/22 Brimonidine Tartrate/Timolol 1 drop BOTH EYES BID 09/25/21 10/27/22 [Combigan 0.2%-0.5% Eye Drops] Cholecalciferol [Vitamin D3 (125 125 mcg PO DAILY 09/25/21 10/27/22 Mcg = 5000 Iu)] Dorzolamide HCl/Pf [Dorzolamide 2% 1 drop BOTH EYES BID 09/25/21 10/27/22 Eye Drop] Fluticasone Nasal [place] [Flonase 2 spr EA NOSTRIL HS PRN 09/25/21 10/27/22 Nasal [place]] Netarsudil Mesylat/Latanoprost 1 drop BOTH EYES HS 09/25/21 10/27/22 [Rocklatan 0.02%-0.005% Eye Drp] Finasteride [Proscar] 5 mg PO DAILY 01/15/22 10/27/22 Ascorbic Acid [Vitamin C] 500 mg PO DAILY 02/25/22 10/27/22 Levothyroxine Sodium [Synthroid] 112 mcg PO DAILY@0630 02/25/22 10/27/22 Zinc 50 mg PO DAILY 02/25/22 10/27/22 Gabapentin 300 mg PO DAILY 10/21/22 10/27/22 Rosuvastatin Calcium 40 mg PO HS 10/21/22 10/27/22 Temazepam [Restoril] 15 mg PO HS PRN 10/21/22 10/27/22 Previous Rx's Medication Instructions Recorded Clopidogrel [Plavix] 75 mg PO DAILY #30 tab 01/21/22 Cyanocobalamin [Vitamin B-12] 1,000 mcg PO DAILY #60 tab 01/21/22 Nitroglycerin Sl Tabs [Nitrostat] 0.4 mg SUBLINGUAL Q5M PRN #14 tab 01/21/22 amLODIPine [Norvasc] 5 mg PO DAILY #30 tab 01/21/22 Allergies Allergy/AdvReac Type Severity Reaction Status Date / Time No Known Allergies Allergy Verified 10/27/22 07:00 Review of Systems ROS Statement: Those systems with pertinent positive or pertinent negative responses have been documented in the HPI. ROS Other: All systems not noted in ROS Statement are negative. Past Medical History Past Medical History: Coronary Artery Disease (CAD), Diabetes Mellitus, Hyperlipidemia, Hypertension, Myocardial Infarction ([place]), Osteoarthritis (OA), Thyroid Disorder Additional Past Medical History / Comment(s): Hx bladder stones. Gout. Last Myocardial Infarction Date:: 2021 History of Any Multi-Drug Resistant Organisms: None Reported Past Surgical History: Coronary Bypass/CABG, Heart Catheterization With Stent, Joint Replacement, Orthopedic Surgery Additional Past Surgical History / Comment(s): Left knee replacement, right foot reconstructive surgery with 12 screws, cataract surgery, 1 vessel CABG, 5 cardiac stents. Past Anesthesia/Blood Transfusion Reactions: No Reported Reaction Date of Last Stent Placement:: 2021 Past Psychological History: No Psychological Hx Reported Smoking Status: Former smoker Past Alcohol Use History: None Reported Past Drug Use History: None Reported - Past Family History Father Additional Family Medical History / Comment(s): "At age 51 one day woke up not feeling well and had some dizziness and ." General Exam - General Exam Comments Initial Comments: GENERAL: Patient is well-developed and well-nourished. Patient is nontoxic and well- hydrated and is in no acute distress. ENT: Neck is soft and supple. No significant lymphadenopathy is noted. Oropharynx is clear. Moist mucous membranes. Neck has full range of motion without eliciting any pain. EYES: The sclera were anicteric and conjunctiva were pink and moist. Extraocular movements were intact and pupils were equal round and reactive to light. Eyelids were unremarkable. PULMONARY: Unlabored respirations. Good breath sounds bilaterally. No audible rales rhonchi or wheezing was noted. CARDIOVASCULAR: There is a regular rate and rhythm without any murmurs gallops or rubs. ABDOMEN: Soft and nontender with normal bowel sounds. SKIN: Skin is clear with no lesions or rashes and otherwise unremarkable. NEUROLOGIC: Patient is alert and oriented x3. Cranial nerves II through XII are grossly intact. Motor and sensory are also intact. Normal speech, volume and content. Symmetrical smile. MUSCULOSKELETAL: Normal extremities with adequate strength and full range of motion. Left first toe has a small ulceration on the anterior medial aspect of the toe the area is erythematous painful to touch and the swelling goes up the foot to the ankle area. Patient also has some swelling to the lower leg LYMPHATICS: No significant lymphadenopathy is noted PSYCHIATRIC: Normal psychiatric evaluation. Limitations: no limitations Course Vital Signs 10/22/24 10/22/24 14:57 16:28 Temperature 98.1 F Pulse Rate 70 62 Respiratory 16 18 Rate Blood Pressure 120/74 129/60 O2 Sat by Pulse 98 97 Oximetry Medical Decision Making - Medical Decision Making EKG is interpreted by myself but EKG shows a paced rhythm at 60 bpm QRS 192 QT interval is 495 QTc is 496. Was pt. sent in by a medical professional or institution (, PA, TOUR COORDINATOR, urgent care, hospital, or fpc...) When possible be specific @ -No Did you speak to anyone other than the patient for history (EMS, parent, family, police, friend...)? What history was obtained from this source @ -No Did you review nursing and triage notes (agree or disagree)? Why? @ -I reviewed and agree with nursing and triage notes Were old charts reviewed (outside hosp., previous admission, EMS record, old EKG, old radiological studies, urgent care reports/EKG's, fpc records)? Report findings @ -No old charts were reviewed Differential Diagnosis? @ -Cellulitis, osteomyelitis, DVT, arterial occlusion, this is not an all- inclusive list EKG interpreted by me (3pts min.). @ -As above X-rays interpreted by me (1pt min.). @ -X-ray of the foot shows no osteomyelitis. CT interpreted by me (1pt min.). @ -None done U/S interpreted by me (1pt. min.). @ -None done What testing was considered but not performed or refused? (CT, X-rays, U/S, l abs)? Why? @ -None What meds were considered but not given or refused? Why? @ -None Did you discuss the management of the patient with other professionals (professionals i.e. , PA, TOUR COORDINATOR, lab, RT, psych nurse, manager social services, bindery production manager, teacher, chief environmental commitment officer, major case detective)? Give summary @ -I spoke with [facility] he agreed to admit the patient admit the patient I wrote admitting orders Was smoking cessation discussed for >3mins.? @ -No Was critical care preformed (if so, how long)? @ -No Were there social determinants of health that impacted care today? How? (Homelessness, low income, unemployed, alcoholism, drug addiction, transportation, low edu. Level, literacy, decrease access to med. care, halfway, rehab)? @ -No Was there de-escalation of care discussed even if they declined (Discuss DNR or withdrawal of care, Hospice)? DNR status @ -No What co-morbidities impacted this encounter? (DM, HTN, Smoking, COPD, CAD, Cancer, CVA, ARF, Chemo, Hep., AIDS, mental health diagnosis, sleep apnea, morbid obesity)? @ -None Was patient admitted / discharged? Hospital course, mention meds given and route, prescriptions, significant lab abnormalities, going to OR and other pertinent info. @ -Patient was started on Zosyn for the infection of the toe and foot. Patient will be admitted to [facility] Undiagnosed new problem with uncertain prognosis? @ -No Drug Therapy requiring intensive monitoring for toxicity (Heparin, Nitro, Insulin, Cardizem)? @ -No Were any procedures done? @ -No Diagnosis/symptom? @ -Wound foot with cellulitis Acute, or Chronic, or Acute on Chronic? @ -Acute Uncomplicated (without systemic symptoms) or Complicated (systemic symptoms)? @ -Default Side effects of treatment? @ -No Exacerbation, Progression, or Severe Exacerbation? @ -No Poses a threat to life or bodily function? How? (Chest pain, [place], [place], pneumonia, PE, COPD, DKA, ARF, appy, cholecystitis, CVA, Diverticulitis, Homicidal, Suicidal, threat to staff... and all critical care pts) @ -Yes this could lead to sepsis and endorgan dysfunction - Lab Data Result diagrams: 10/22/24 16:15 10/22/24 16:15 Lab Results 10/22/24 10/22/24 10/22/24 Range/Units 15:00 16:15 16:15 WBC 11.28 H (4.50-10.00) 10*3/uL RBC 4.80 (4.40-5.60) 10*6/uL Hgb 15.1 (13.0-17.0) g/dL Hct 44.3 (39.6-50.0) % MCV 92.3 (80.0-97.0) fL MCH 31.5 (27.0-32.0) pg MCHC 34.1 (32.0-37.0) g/dL Plt Count 300 (140-440) 10*3/uL MPV 9.5 (9.5-12.2) fL Immature Gran % (Auto) 0.4 % Neutrophils % 68.4 % Lymphocytes % 20.4 % Monocytes % 9.0 % Eosinophils % 1.4 % Basophils % 0.4 % Immature Gran # 0.04 (0.00-0.04) 10*3/uL Neutrophils # 7.72 H (1.80-7.70) 10*3/uL Lymphocytes # 2.30 (0.90-5.00) 10*3/uL Monocytes # 1.02 H (0.20-1.00) 10*3/uL Eosinophils # 0.16 (0.04-0.35) 10*3/uL Basophils # 0.04 (0.00-0.10) 10*3/uL PT 10.3 (10.0-12.5) sec INR 0.9 (<1.2) APTT 24.0 (22.0-30.0) sec Sodium (137-145) mmol/L Potassium (3.5-5.1) mmol/L Chloride (98-107) mmol/L Carbon Dioxide (22-30) mmol/L Anion Gap mmol/L BUN (9-20) mg/dL Creatinine (0.66-1.25) mg/dL Est GFR (CKD-EPI)AfAm (>60 ml/min/1.73 sqM) Est GFR (CKD-EPI)NonAf (>60 ml/min/1.73 sqM) Glucose (74-99) mg/dL POC Glucose (mg/dL) 116 H (70-110) mg/dL POC Glu Beauty Advisor ID Efe Win Plasma Lactic Acid [place] (0.7-2.0) mmol/L Calcium (8.4-10.2) mg/dL Total Bilirubin (0.2-1.3) mg/dL AST (17-59) U/L ALT (4-49) U/L Alkaline Phosphatase (38-126) U/L Total Protein (6.3-8.2) g/dL Albumin (3.5-5.0) g/dL 10/22/24 10/22/24 10/22/24 Range/Units 16:15 16:15 16:57 WBC (4.50-10.00) 10*3/uL RBC (4.40-5.60) 10*6/uL Hgb (13.0-17.0) g/dL Hct (39.6-50.0) % MCV (80.0-97.0) fL MCH (27.0-32.0) pg MCHC (32.0-37.0) g/dL Plt Count (140-440) 10*3/uL MPV (9.5-12.2) fL Immature Gran % (Auto) % Neutrophils % % Lymphocytes % % Monocytes % % Eosinophils % % Basophils % % Immature Gran # (0.00-0.04) 10*3/uL Neutrophils # (1.80-7.70) 10*3/uL Lymphocytes # (0.90-5.00) 10*3/uL Monocytes # (0.20-1.00) 10*3/uL Eosinophils # (0.04-0.35) 10*3/uL Basophils # (0.00-0.10) 10*3/uL PT (10.0-12.5) sec INR (<1.2) APTT (22.0-30.0) sec Sodium 141 (137-145) mmol/L Potassium 4.1 (3.5-5.1) mmol/L Chloride 104 (98-107) mmol/L Carbon Dioxide 27 (22-30) mmol/L Anion Gap 10 mmol/L BUN 20 (9-20) mg/dL Creatinine 0.79 (0.66-1.25) mg/dL Est GFR (CKD-EPI)AfAm >90 (>60 ml/min/1.73 sqM) Est GFR (CKD-EPI)NonAf 84 (>60 ml/min/1.73 sqM) Glucose 60 L (74-99) mg/dL POC Glucose (mg/dL) 56 L (70-110) mg/dL POC Glu Beauty Advisor ID Belval Rosibel Plasma Lactic Acid [place] 1.6 (0.7-2.0) mmol/L Calcium 10.1 (8.4-10.2) mg/dL Total Bilirubin 0.5 (0.2-1.3) mg/dL AST 17 (17-59) U/L ALT 15 (4-49) U/L Alkaline Phosphatase 78 (38-126) U/L Total Protein 7.5 (6.3-8.2) g/dL Albumin 4.2 (3.5-5.0) g/dL Disposition Clinical Impression: Ulcer of foot, Cellulitis Disposition: ADMITTED IP TO THIS HOSP Referrals: Sharif Tamayo DO [Primary Care Provider] - 1-2 days Time of Disposition: 17:51
--- NOTE | 2024-10-22 16:08 | XR ---
EXAMINATION TYPE: XR foot complete LT DATE OF EXAM: 10/22/2024 4:03 PM INDICATION: Patient age:Male; 84 years old; Reason for study: Osteomyelitis; PHH. pain COMPARISON: Left foot and ankle radiographs 12/29/2019 TECHNIQUE: The left foot was examined in the AP, oblique, and lateral projections. FINDINGS: No evidence of any acute osseous pathology. No osseous erosions. Diffuse soft tissue swelling. Joints are preserved. Vascular sclerosis. No radiopaque foreign body. Small plantar calcaneal enthesophyte. IMPRESSION: 1. No evidence of acute fracture. 2. No osseous erosions to suggest osteomyelitis. 3. Diffuse soft tissue swelling. [facility], , 10/22/2024 4:06 PM
[2024-10-22] MEDS: KETOROLAC 15 MG/ML 1 ML VIAL IVP STA (16:23)
[2024-10-22] MEDS: HYDROmorphone 0.5 MG/0.5 ML SYRINGE IVP STA (16:24)
[2024-10-22 16:33] LABS: Basophils # (A) 0.04 10*3/uL (0.00-0.10); Basophils % (A) 0.4 %; Eosinophils # (A) 0.16 10*3/uL (0.04-0.35); Eosinophils % (A) 1.4 %; HCT 44.3 % (39.6-50.0); HGB 15.1 g/dL (13.0-17.0); Lymphocytes % (A) 20.4 %; MCH 31.5 pg (27.0-32.0); MCHC 34.1 g/dL (32.0-37.0); MCV 92.3 fL (80.0-97.0); Mean Platelet Volume 9.5 fL (9.5-12.2); Monocytes # (A) 1.02 10*3/uL (0.20-1.00); Neutrophils # (A) 7.72 10*3/uL (1.80-7.70); Neutrophils % (A) 68.4 %; Platelet Count 300 10*3/uL (140-440); RDW 12.7 % (11.5-14.5); WBC 11.28 10*3/uL (4.50-10.00)
[2024-10-22 16:49] LABS: ALT 15 U/L (4-49); AST 17 U/L (17-59); African American GFR (CKD) >90 (>60 ml/min/1.73 sqM); Albumin 4.2 g/dL (3.5-5.0); Alkaline Phosphatase 78 U/L (38-126); Anion Gap 10 mmol/L; Blood Urea Nitrogen 20 mg/dL (9-20); Calcium 10.1 mg/dL (8.4-10.2); Carbon Dioxide 27 mmol/L (22-30); Chloride 104 mmol/L (98-107); Glucose 60 mg/dL (74-99); Non-African American GFR(CKD) 84 (>60 ml/min/1.73 sqM); Potassium 4.1 mmol/L (3.5-5.1); Sodium 141 mmol/L (137-145); Total Bilirubin 0.5 mg/dL (0.2-1.3); Total Protein 7.5 g/dL (6.3-8.2)
[2024-10-22 16:51] LABS: INR 0.9 (<1.2); Prothrombin Time 10.3 sec (10.0-12.5)
[2024-10-22 16:58] LABS: Glucose,Whole Blood 56 mg/dL (70-110)
[2024-10-22] MEDS: PIPERACILLIN-TAZOBACTAM 3.375 GM in SODIUM CHLORIDE 0.9% 100 ML IVPB STA (17:14)
[2024-10-22 17:49] LABS: Glucose,Whole Blood 90 mg/dL (70-110)
[2024-10-23] MEDS ORDERED: PIPERACILLIN-TAZOBACTAM 3.375 GM in SODIUM CHLORIDE 0.9% 100 ML IVPB SCH
--- NOTE | 2024-10-23 00:31 | P.HPIM ---
History of Present Illness H&P Date: 10/22/24 Chief Complaint: lower extremity swelling Patient is a 84 year old male with past medical history of coronary artery disease with prior stenting and CABG, diabetes mellitus, hyperlipidemia, hypertension, osteoarthritis, hypothyroidism, gout with former tobacco dependence presented to the ED with lower extremity swelling. Patient initially had a wound on his left first toe 6months to a year ago. He had seen a photoengraving machine operator/tender for that previously. Lately he has endorsed 9/10 pain and reports the wound has become more sore and red along with pus. The redness seems to have spread up the foot. He has now also noticed swelling on his leg. The pain is new in nature. He denies any injury/trauma. Denies fever/chills. Of note he does report 1 episode of vomiting 2 days ago that started right after having pizza. He denies any nausea or vomiting since then. Additionally, he mentions taking 35 unit of long acting insulin daily along with sliding scale. Denies fever, chills, shortness of breath, cough, chest pain, palpitations, abdominal pain, nausea, hematuria, dysuria, hematochezia, melena, headache, slurred speech, dizziness, lightheadedness, blurred vision present double vision. ED documentation reviewed. In the ED patient was treated with Dilaudid 0.5 mg, Toradol 15 mg, Zosyn 3.375 gm. Vitals on admission T 98.1 F, AL 70 bpm, RR 16, BP 120/74, oxygen saturation 98% on room air EKG independently interpreted as atrial fibrillation, rate 60 bpm, QTc p rolongation, QTc 496 ms Foot x-ray shows no evidence of acute fracture, no osseous erosion/osteomyel itis, diffuse soft tissue swelling Labs on admission show WBC 11.28, hemoglobin 15.1, platelet count 300, INR 0.9, sodium 141, potassium 4.1, creatinine 0.79, lactic acid 1.6, total bilirubin 0.5, glucose 60 Patient admitted to internal medicine service Review of systems: Pertinent positives and negatives as discussed in HPI, a complete review of systems was performed and all other systems are negative. Physical examination: Vital signs reviewed General: nontoxic, no distress, appears at stated age Derm: warm, dry, intact Head: atraumatic, normocephalic, symmetric Eyes: EOMI, anicteric sclera Mouth: no lip lesion, mucus membranes moist Cardiovascular: S1 S2 reg, no murmur Lungs: CTA bilateral, no rhonchi, no rales, no accessory muscle use Abdominal: soft, non-tender to palpation Extremities: erythema, edema of distal 2/3 of dorsal aspect of left foot, area of erythema and edema marked with ink, small ulcer on the left great toe with dried blood surrounding, Neuro: Alert, Oriented, Gross neurological examination did not reveal any focal deficits. Psych: well appearing, appropriate affect Assessment/Plan: Patient is a 84 year old male with past medical history of coronary artery disease with prior stenting and CABG, diabetes mellitus, hyperlipidemia, hypertension, osteoarthritis, hypothyroidism, gout with former tobacco dependence presented to the ED with lower extremity swelling. Active: #. Cellulitis of the left foot #. Diabetic foot ulcer of toe #. Leukocytosis Foot x-ray shows no evidence of acute fracture, no osseous er osion/osteomyelitis, diffuse soft tissue swelling WBC 11.28, lactic acid 1.6 Received Zosyn once in the ED along with Dilaudid and Toradol start vanco dosing by [employer] Continue Tylenol and Toradol for pain management Obtain blood culture Monitor CBC Chronic: #. Hypertension #. Atrial fibrillation, controlled ventricular rate, [id number] 5 #. Type 2 diabetes mellitus #. Hypothyroidism #. BPH #. Neuropathy #. Hyperlipidemia Continue amlodipine 5 mg p.o. at bedtime, Eliquis 5 mg p.o. twice daily, Jardiance 25 mg p.o. daily, finasteride 5 mg p.o. daily, gabapentin 30 mg p.o. at bedtime, levothyroxine 112 mcg p.o. daily, losartan 25 mg p.o. at bedtime, Crestor 40 mg p.o. at bedtime, tamsulosin 0.4 mg p.o. twice daily, temazepam 15 mg p.o. at bedtime, Lantus 35 units daily and insulin sliding scale F: None E: Replete as required N: Heart healthy diet DVT prophylaxis: Eliquis 5 mg p.o. twice daily GI prophylaxis: Pantoprazole 40 mg p.o. daily The patient is admitted with an anticipated less than 2 midnight stay for evaluation of lower extremity swelling CODE STATUS: Full code Discussed with: Patient Anticipated discharge place: Pending clinical course Dictation was produced using dragon dictation software. please excuse any grammatical, word or spelling errors. Neha Fuller MD PGY-1 IM I have seen and evaluated the patient today. I Discussed the case with the resident and agree with the resident's findings I edited the assessment and plan as necessary as documented in the resident's note. Past Medical History Past Medical History: Coronary Artery Disease (CAD), Diabetes Mellitus, Hyperlipidemia, Hypertension, Myocardial Infarction (NC), Osteoarthritis (OA), Thyroid Disorder Additional Past Medical History / Comment(s): Hx bladder stones. Gout. Last Myocardial Infarction Date:: 2021 History of Any Multi-Drug Resistant Organisms: None Reported Past Surgical History: Coronary Bypass/CABG, Heart Catheterization With Stent, Joint Replacement, Orthopedic Surgery Additional Past Surgical History / Comment(s): Left knee replacement, right foot reconstructive surgery with 12 screws, cataract surgery, 1 vessel CABG, 5 cardiac stents. Past Anesthesia/Blood Transfusion Reactions: No Reported Reaction Date of Last Stent Placement:: 2021 Past Psychological History: No Psychological Hx Reported Smoking Status: Former smoker Past Alcohol Use History: None Reported Past Drug Use History: None Reported - Past Family History Father Additional Family Medical History / Comment(s): "At age 51 one day woke up not feeling well and had some dizziness and ." Medications and Allergies Home Medications Medication Instructions Recorded Confirmed Type Apixaban [Eliquis] 5 mg PO BID 03/12/19 10/22/24 History Insulin Aspart [NovoLOG Flexpen] See Protocol SQ AC-TID 03/12/19 10/22/24 History Losartan Potassium [Cozaar] 25 mg PO HS 03/12/19 10/22/24 History Tamsulosin HCl [Flomax] 0.4 mg PO BID 03/12/19 10/22/24 History metFORMIN HCL [Glucophage] 1,000 mg PO BID@0900,1700 03/12/19 10/22/24 History Brimonidine Tartrate/Timolol 1 drop BOTH EYES BID 09/25/21 10/22/24 History [Combigan 0.2%-0.5% Eye Drops] Dorzolamide HCl/Pf [Dorzolamide 2% 1 drop BOTH EYES BID 09/25/21 10/22/24 His tory Eye Drop] Netarsudil Mesylat/Latanoprost 1 drop BOTH EYES HS 09/25/21 10/22/24 History [Rocklatan 0.02%-0.005% Eye Drp] Finasteride [Proscar] 5 mg PO DAILY 01/15/22 10/22/24 History Levothyroxine Sodium [Synthroid] 112 mcg PO DAILY 02/25/22 10/22/24 History Gabapentin 300 mg PO HS 10/21/22 10/22/24 History Rosuvastatin Calcium 40 mg PO HS 10/21/22 10/22/24 History Temazepam [Restoril] 15 mg PO HS PRN 10/21/22 10/22/24 History Empagliflozin [Jardiance] 25 mg PO DAILY@1700 10/22/24 10/22/24 History Insulin Glargine,Hum.rec.anlog 35 units SQ DAILY 10/22/24 10/22/24 History [Lantus Solostar Pen] amLODIPine [Norvasc] 5 mg PO HS 10/22/24 10/22/24 History Allergies Allergy/AdvReac Type Severity Reaction Status Date / Time No Known Allergies Allergy Verified 10/22/24 18:07 Physical Exam Vitals: Vital Signs Temp Pulse Resp BP Pulse Ox 10/22/24 18:41 64 18 122/61 95 10/22/24 16:28 62 18 129/60 97 10/22/24 14:57 98.1 F 70 16 120/74 98 Intake and Output 10/22/24 10/22/24 10/22/24 06:59 14:59 22:59 Other: Weight 90.718 kg Results CBC & Chem 7: 10/22/24 16:15 10/22/24 16:15 Labs: Abnormal Lab Results - Last 24 Hours (Table) 10/22/24 10/22/24 10/22/24 Range/Units 15:00 16:15 16:15 WBC 11.28 H (4.50-10.00) 10*3/uL Neutrophils # 7.72 H (1.80-7.70) 10*3/uL Monocytes # 1.02 H (0.20-1.00) 10*3/uL Glucose 60 L (74-99) mg/dL POC Glucose (mg/dL) 116 H (70-110) mg/dL 10/22/24 Range/Units 16:57 WBC (4.50-10.00) 10*3/uL Neutrophils # (1.80-7.70) 10*3/uL Monocytes # (0.20-1.00) 10*3/uL Glucose (74-99) mg/dL POC Glucose (mg/dL) 56 L (70-110) mg/dL
[2024-10-23] MEDS: PIPERACILLIN-TAZOBACTAM 3.375 GM in SODIUM CHLORIDE 0.9% 100 ML IVPB SCH (00:42)
[2024-10-23] MEDS ORDERED: VANCOMYCIN IV PER PHARMACY 1 EACH MISC MISCELLANE PRN (01:13)
[2024-10-23] MEDS ORDERED: TEMAZEPAM 15 MG CAP PO PRN (01:47)
[2024-10-23] MEDS ORDERED: DEXTROSE 50% SYRINGE 50 ML IVP PRN ×2 (01:49)
[2024-10-23] MEDS: VANCOMYCIN 1,500 MG in SODIUM CHLORIDE 0.9% 500 ML 500 ML IVPB SCH (02:57)
[2024-10-23 03:45] LABS: HCT 36.7 % (39.6-50.0); HGB 12.3 g/dL (13.0-17.0); MCH 31.3 pg (27.0-32.0); MCHC 33.5 g/dL (32.0-37.0); MCV 93.4 fL (80.0-97.0); Mean Platelet Volume 9.7 fL (9.5-12.2); Platelet Count 260 10*3/uL (140-440); RBC 3.93 10*6/uL (4.40-5.60); RDW 12.5 % (11.5-14.5); WBC 8.57 10*3/uL (4.50-10.00)
[2024-10-23 03:57] LABS: African American GFR (CKD) 84 (>60 ml/min/1.73 sqM); Anion Gap 5 mmol/L; Blood Urea Nitrogen 22 mg/dL (9-20); Calcium 9.2 mg/dL (8.4-10.2); Carbon Dioxide 27 mmol/L (22-30); Chloride 105 mmol/L (98-107); Glucose 127 mg/dL (74-99); Non-African American GFR(CKD) 73 (>60 ml/min/1.73 sqM); Potassium 4.2 mmol/L (3.5-5.1); Sodium 137 mmol/L (137-145)
[2024-10-23 06:29] LABS: Glucose,Whole Blood 85 mg/dL (70-110)
[2024-10-23] MEDS: LEVOTHYROXINE 112 MCG TAB PO SCH (07:28)
[2024-10-23] MEDS: PANTOPRAZOLE 40 MG TABLET PO SCH (07:28)
[2024-10-23] MEDS: INSULIN GLARGINE (LANTUS) 100 UNIT/ML SYR SQ SCH (07:37)
[2024-10-23] MEDS: INSULIN LISPRO (HumaLOG) 100 UNIT/ML 10 mL VL SQ SCH (07:39)
[2024-10-23] MEDS: ACETAMINOPHEN TAB 325 MG TAB PO PRN (09:12)
[2024-10-23] MEDS: APIXABAN 5 MG TAB PO SCH (09:25)
[2024-10-23] MEDS: TAMSULOSIN 0.4 MG CAP.ER.24H PO SCH (09:25)
[2024-10-23] MEDS: DAPAGLIFLOZIN PROPANEDIOL 10 MG TABLET PO SCH (09:25)
[2024-10-23] MEDS: FINASTERIDE 5 MG TAB PO SCH (09:25)
[2024-10-23 10:52] LABS: Glucose,Whole Blood 157 mg/dL (70-110)
[2024-10-23] MEDS: AMPICILLIN-SULBACTAM 3 GM in SODIUM CHLORIDE 0.9% 100 ML IVPB SCH (11:25)
--- NOTE | 2024-10-23 11:45 | P.PN ---
Subjective Progress Note Date: 10/23/24 84 year old male with past medical history of coronary artery disease with prior stenting and CABG, diabetes mellitus, hyperlipidemia, hypertension, osteoarthritis, hypothyroidism, gout with former tobacco dependence presented to the ED with lower extremity swelling. Patient initially had a wound on his left first toe 6months to a year ago. He had seen a fleet operations manager for that previously. Lately he has endorsed 9/10 pain and reports the wound has become more sore and red along with pus. The redness se ems to have spread up the foot. He has now also noticed swelling on his leg. The pain is new in nature. He denies any injury/trauma. Denies fever/chills. Of note he does report 1 episode of vomiting 2 days ago that started right after having pizza. He denies any nausea or vomiting since then. Additionally, he mentions taking 35 unit of long acting insulin daily along with sliding scale. 10/23 - He is seen and examined at bedside this morning, now on the 4th floor. No acute events overnight, no acute complaints this morning. Does note that the pain is somewhat similar to how it was upon arrival initially, after feeling as though it had gotten a little bit better overnight. REVIEW OF SYSTEMS: Pertinent positives and negatives noted in HPI. Physical Exam: Vital signs reviewed General: nontoxic, no distress, appears at stated age Derm: warm, dry, intact Head: atraumatic, normocephalic, symmetric Eyes: EOMI, anicteric sclera Mouth: no lip lesion, mucus membranes moist Cardiovascular: S1 S2 reg, no murmur Lungs: CTA bilateral, no rhonchi, no rales, no accessory muscle use Abdominal: soft, non-tender to palpation Extremities: erythema, edema of distal 2/3 of dorsal aspect of left foot, area of erythema and edema marked with ink, small superficial ulcer on the left great toe with dried blood surrounding, Neuro: Alert, Oriented, Gross neurological examination did not reveal any focal deficits. Psych: well appearing, appropriate affect Data Received Today: Labs: WBC 8.57, hemoglobin 12.3, hematocrit 36.7, platelet 260; sodium 137, potassium 4.2, BUN 22, creatinine 0.97, calcium 9.2, CRP 5.1 Imagining: No new imaging today Assessment and plan Patient is a 84 year old male with past medical history of coronary artery disease with prior stenting and CABG, diabetes mellitus, hyperlipidemia, hypertension, osteoarthritis, hypothyroidism, gout with former tobacco depe khang presented to the ED with lower extremity swelling. Active: #Cellulitis of the left foot #Possible diabetic foot ulcer of toe, more superficial #Leukocytosis, resolved -Continue IV vancomycin, monitor for renal toxicity, and started on Unasyn 3 g every 8 hours -CRP 5.1, ESR currently pending -Continue Tylenol and Toradol for pain management -Obtain blood culture -Monitor CBC -Consider further imaging like MRI of left foot w/contrast if needed/unsuccessful with antibiotics Chronic: #Hypertension #Atrial fibrillation, controlled ventricular rate, [id number] 5 #Type 2 diabetes mellitus #Hypothyroidism #BPH #Neuropathy #Hyperlipidemia -Continue amlodipine 5 mg p.o. at bedtime, Eliquis 5 mg p.o. twice daily, Jardiance 25 mg p.o. daily, finasteride 5 mg p.o. daily, gabapentin 30 mg p.o. at bedtime, levothyroxine 112 mcg p.o. daily, losartan 25 mg p.o. at bedtime, Crestor 40 mg p.o. at bedtime, tamsulosin 0.4 mg p.o. twice daily, temazepam 15 mg p.o. at bedtime, Lantus 35 units daily and insulin sliding scale DVT ppx: Eliquis 5 mg twice daily GI PPx: Protonix 40 mg daily Code status: Full code F: None E: Replete as needed N: Heart healthy diet A: Ambulatory Anticipated discharge place: Home Anticipated discharge time: Pending clinical course Dictation was produced using [employer] dictation software. please excuse any grammatical, word or spelling errors. Roland Cowart MD PGY-1 IM I have seen and evaluated the patient today. Discussed with the resident and agree with the residents finding and plan as documented in the resident's note. Changes highlighted in blue font. Objective - Vital Signs Vital signs: Vital Signs Temp 98.4 F 10/23/24 02:20 Pulse 65 10/23/24 02:20 Resp 18 10/23/24 02:20 BP 134/76 10/23/24 02:20 Pulse Ox 97 10/23/24 02:20 FiO2 Intake & Output 10/22/24 10/23/24 10/23/24 18:59 06:59 18:59 Intake Total 750 Balance 750 Weight 90.718 kg 90.718 kg Intake: Oral 750 Other: Voiding Method Toilet # Voids 3 - Labs CBC & Chem 7: 10/23/24 03:07 10/23/24 03:07 Labs: Abnormal Lab Results - Last 24 Hours (Table) 10/22/24 10/22/24 10/22/24 Range/Units 15:00 16:15 16:15 WBC 11.28 H (4.50-10.00) 10*3/uL RBC (4.40-5.60) 10*6/uL Hgb (13.0-17.0) g/dL Hct (39.6-50.0) % Neutrophils # 7.72 H (1.80-7.70) 10*3/uL Monocytes # 1.02 H (0.20-1.00) 10*3/uL BUN (9-20) mg/dL Glucose 60 L (74-99) mg/dL POC Glucose (mg/dL) 116 H (70-110) mg/dL 10/22/24 10/23/24 10/23/24 Range/Units 16:57 03:07 03:07 WBC (4.50-10.00) 10*3/uL RBC 3.93 L (4.40-5.60) 10*6/uL Hgb 12.3 L (13.0-17.0) g/dL Hct 36.7 L (39.6-50.0) % Neutrophils # (1.80-7.70) 10*3/uL Monocytes # (0.20-1.00) 10*3/uL BUN 22 H (9-20) mg/dL Glucose 127 H (74-99) mg/dL POC Glucose (mg/dL) 56 L (70-110) mg/dL
[2024-10-23 16:45] LABS: Glucose,Whole Blood 97 mg/dL (70-110)
[2024-10-23] MEDS: ATORVASTATIN 80 MG TAB PO SCH (20:27)
[2024-10-23] MEDS: amLODIPine 5 MG TAB PO SCH (20:27)
[2024-10-23] MEDS: GABAPENTIN 300 MG CAP PO SCH (20:27)
[2024-10-23] MEDS: LOSARTAN 25 MG TAB PO SCH (20:27)
[2024-10-23 20:36] LABS: Glucose,Whole Blood 152 mg/dL (70-110)
[2024-10-24 03:51] LABS: HCT 34.6 % (39.6-50.0); HGB 11.4 g/dL (13.0-17.0); MCH 30.6 pg (27.0-32.0); MCHC 32.9 g/dL (32.0-37.0); Mean Platelet Volume 9.4 fL (9.5-12.2); Platelet Count 246 10*3/uL (140-440); RBC 3.72 10*6/uL (4.40-5.60); RDW 12.7 % (11.5-14.5); WBC 8.16 10*3/uL (4.50-10.00)
[2024-10-24 04:37] LABS: African American GFR (CKD) >90 (>60 ml/min/1.73 sqM); Anion Gap 7 mmol/L; Blood Urea Nitrogen 12 mg/dL (9-20); Calcium 9.2 mg/dL (8.4-10.2); Carbon Dioxide 27 mmol/L (22-30); Chloride 105 mmol/L (98-107); Glucose 83 mg/dL (74-99); Non-African American GFR(CKD) 90 (>60 ml/min/1.73 sqM); Potassium 3.9 mmol/L (3.5-5.1); Sodium 139 mmol/L (137-145)
[2024-10-24 06:20] LABS: Glucose,Whole Blood 85 mg/dL (70-110)
[2024-10-24] MEDS: BRIMONIDINE TARTRATE 0.2% DROPS 5 ML BTL BOTH EYES SCH (11:18)
[2024-10-24] MEDS: DORZOLAMIDE HCL 2% DROPS 10 ML BTL BOTH EYES SCH (11:19)
[2024-10-24 11:28] LABS: Glucose,Whole Blood 153 mg/dL (70-110)
[2024-10-24] MEDS: TIMOLOL 0.5% OPHTH DROPS 5 ML BTL BOTH EYES SCH (11:32)
--- NOTE | 2024-10-24 11:44 | P.PN ---
Subjective Progress Note Date: 10/24/24 84 year old male with past medical history of coronary artery disease with prior stenting and CABG, diabetes mellitus, hyperlipidemia, hypertension, osteoarthritis, hypothyroidism, gout with former tobacco dependence presented to the ED with lower extremity swelling. Patient initially had a wound on his left first toe 6months to a year ago. He had seen a front window cashier for that previously. Lately he has endorsed 9/10 pain and reports the wound has become more sore and red along with pus. The redness se ems to have spread up the foot. He has now also noticed swelling on his leg. The pain is new in nature. He denies any injury/trauma. Denies fever/chills. Of note he does report 1 episode of vomiting 2 days ago that started right after having pizza. He denies any nausea or vomiting since then. Additionally, he mentions taking 35 unit of long acting insulin daily along with sliding scale. 10/23 - He is seen and examined at bedside this morning, now on the 4th floor. No acute events overnight, no acute complaints this morning. Does note that the pain is somewhat similar to how it was upon arrival initially, after feeling as though it had gotten a little bit better overnight. 10/24 - He is seen and examined at bedside this morning. No acute events overnight, no acute complaints this morning. Feels as though his foot is improving, with noted improvement in the erythema and edema. Infectious disease and podiatry consulted. REVIEW OF SYSTEMS: Pertinent positives and negatives noted in HPI. Physical Exam: Vital signs reviewed General: nontoxic, no distress, appears at stated age Derm: warm, dry, intact Head: atraumatic, normocephalic, symmetric Eyes: EOMI, anicteric sclera Mouth: no lip lesion, mucus membranes moist Cardiovascular: S1 S2 reg, no murmur Lungs: CTA bilateral, no rhonchi, no rales, no accessory muscle use Abdominal: soft, non-tender to palpation Extremities: erythema, edema of distal 2/3 of dorsal aspect of left foot, area of erythema and edema marked with ink, small superficial ulcer on the left great toe with dried blood surrounding, Neuro: Alert, Oriented, Gross neurological examination did not reveal any focal deficits. Psych: well appearing, appropriate affect Data Received Today: Labs: WBCs 8.16, hemoglobin 11.4, hematocrit 34.6, platelet 246; sodium 139, potassium 3.9, BUN 12, creatinine 0.67, calcium 9.2 Imagining: MRI of the left foot w/contrast ordered, currently pending Assessment and plan Patient is a 84 year old male with past medical history of coronary artery disease with prior stenting and CABG, diabetes mellitus, hyperlipidemia, hypertension, osteoarthritis, hypothyroidism, gout with former tobacco dependence presented to the ED with lower extremity swelling. Active: #Cellulitis of the left foot #Possible diabetic foot ulcer of toe, more superficial, concern for possible abscess #Leukocytosis, resolved -Continue vancomycin, and started on Unasyn 3 g every 8 hours -Continue Tylenol and Toradol for pain management -Obtain blood culture -Monitor CBC -MRI of left foot w/contrast ordered, currently pending -> MRI could not be done due due to pacemaker. Will defer further imaging to podiatry. -ID consulted -Podiatry consulted Chronic: #Hypertension #Atrial fibrillation, controlled ventricular rate, [id number] 5 #Type 2 diabetes mellitus #Hypothyroidism #BPH #Neuropathy #Hyperlipidemia -Continue amlodipine 5 mg p.o. at bedtime, Eliquis 5 mg p.o. twice daily, Jardiance 25 mg p.o. daily, finasteride 5 mg p.o. daily, gabapentin 30 mg p.o. at bedtime, levothyroxine 112 mcg p.o. daily, losartan 25 mg p.o. at bedtime, Crestor 40 mg p.o. at bedtime, tamsulosin 0.4 mg p.o. twice daily, temazepam 15 mg p.o. at bedtime, Lantus 35 units daily and insulin sliding scale DVT ppx: Eliquis 5 mg twice daily GI PPx: Protonix 40 mg daily Code status: Full code F: None E: Replete as needed N: Heart healthy diet A: Ambulatory Anticipated discharge place: Home Anticipated discharge time: 2448 hours Dictation was produced using [employer] dictation software. please excuse any grammatical, word or spelling errors. Roland Cowart MD PGY-1 IM Addending attestation I have seen and evaluated the patient today. Discussed with the resident and agree with the residents finding and plan as documented in the resident's note. Changes highlighted in blue font. Objective - Vital Signs Vital signs: Vital Signs Temp 98.4 F 10/24/24 06:50 Pulse 60 10/24/24 06:50 Resp 18 10/24/24 06:50 BP 123/70 10/24/24 06:50 Pulse Ox 94 L 10/24/24 06:50 FiO2 Intake & Output 10/23/24 10/24/24 10/24/24 18:59 06:59 18:59 Other: Voiding Method Toilet # Voids 5 3 # Bowel Movements 0 - Labs CBC & Chem 7: 10/24/24 03:03 10/24/24 03:03 Labs: Abnormal Lab Results - Last 24 Hours (Table) 10/23/24 10/23/24 10/23/24 Range/Units 03:07 03:07 10:50 RBC (4.40-5.60) 10*6/uL Hgb (13.0-17.0) g/dL Hct (39.6-50.0) % MPV (9.5-12.2) fL ESR 25 H (0-20) mm/Hr POC Glucose (mg/dL) 157 H (70-110) mg/dL C-Reactive Protein 5.1 H (<1.0) mg/dL 10/23/24 10/24/24 Range/Units 20:35 03:03 RBC 3.72 L (4.40-5.60) 10*6/uL Hgb 11.4 L (13.0-17.0) g/dL Hct 34.6 L (39.6-50.0) % MPV 9.4 L (9.5-12.2) fL ESR (0-20) mm/Hr POC Glucose (mg/dL) 152 H (70-110) mg/dL C-Reactive Protein (<1.0) mg/dL
--- NOTE | 2024-10-24 13:00 | US ---
EXAMINATION TYPE: US extremity nonvasc mass LT DATE OF EXAM: 10/24/2024 COMPARISON: NONE CLINICAL INDICATION: Male, 84 years old with history of Left foot/big toe infection; Cellulitis left big toe TECHNIQUE: Targeted ultrasound left first digit. FINDINGS: Software Engineering Project Manager notes: ? No definite abnormality seen in left big toe The provided images suggest some soft tissue swelling and hyperemia. Some vague hypoechoic areas coul d represent soft tissue edema. No well-defined fluid collection. IMPRESSION: No landmarks provided while imaging the great toe. There seems to be some soft tissue swelling and hy peremia and poorly defined edema. Consider cellulitis. Follow-up if symptoms do not improve with cons ervative management. [facility], , 10/24/2024 12:58 PM
[2024-10-24 16:51] LABS: Glucose,Whole Blood 92 mg/dL (70-110)
--- NOTE | 2024-10-24 20:23 | P.PN ---
Subjective Progress Note Date: 10/24/24 Principal diagnosis: Guadarrama grade 3 ulcer/abscess left hallux with ascending cellulitis Patient is a 84-year-old white male admitted to the hospital on 10/22/2024 chief complaint of infected left hallux. Patient states she saw his childcare attendant on Tuesday and was told to go to the hospital for admission due to a infected left hallux. He states his left hallux has had a sore on it for several months. He states recently it started getting sore he presented to his childcare attendant who i nformed him that this was infected and needed hospital admission for treatment. Patient's past medical history Past Medical History: Coronary Artery Disease (CAD), Diabetes Mellitus, Hyperlipidemia, Hypertension, Myocardial Infarction ([place]), Osteoarthritis (OA), Thyroid Disorder Additional Past Medical History / Comment(s): Hx bladder stones. Gout. Last Myocardial Infarction Date:: 2021 History of Any Multi-Drug Resistant Organisms: None Reported Past Surgical History: Coronary Bypass/CABG, Heart Catheterization With Stent, Joint Replacement, Orthopedic Surgery Additional Past Surgical History / Comment(s): Left knee replacement, right foot reconstructive surgery with 12 screws, cataract surgery, 1 vessel CABG, 5 cardiac stents. Past Anesthesia/Blood Transfusion Reactions: No Reported Reaction Date of Last Stent Placement:: 2021 Past Psychological History: No Psychological Hx Reported Smoking Status: Former smoker Past Alcohol Use History: None Reported Past Drug Use History: None Reported Objective - Vital Signs Vital signs: Vital Signs Temp 98.7 F 10/24/24 14:15 Pulse 63 10/24/24 14:15 Resp 16 10/24/24 14:15 BP 124/69 10/24/24 14:15 Pulse Ox 95 10/24/24 14:15 FiO2 Intake & Output 10/24/24 10/24/24 10/25/24 06:59 18:59 06:59 Intake Total 800 Balance 800 Intake: Oral 800 Other: Voiding Method Toilet Toilet # Voids 3 2 # Bowel Movements 0 - Cardiovascular Details: Patient has diminished pedal pulses of bilateral lower extremities with dorsalis pedis pulse 1/4 posterior tibial pulse 1/4 bilateral. There is no digital hair bilateral there is venous insufficiency with lymphedema bilateral. Extremities are warm to cool bilateral. - Integumentary Integumentary Comment(s): Patient has a ulcer abscess noted on the dorsal medial aspect just proximal to the interphalangeal joint of the left hallux. There is superficial sloughing surrounding the lesion with localized erythema edema extending circumferentially about the left hallux and extending proximally to the level of the ankle joint bilateral. There is continued be edema extending to the lower leg with pain on palpation of this area. Upon debridement of the superficial sloughing tissue a small abscess ulcer was noted in this area measuring approximately 3 mm in diameter. Using a sterile curette the abscess was inspected and found to be tracking to a depth to the osseous tissue about 4 mm there is tunneling approximately along the proximal phalanx shaft approximately 2-1/2 cm running from medial to lateral and then the tunneling continued along the lateral surface of the interphalangeal joint another 2-1/2 cm in this area. There was palpable bone with the curette. Upon opening the abscess a hematogenous purulence was expressed with no odor. There was no other significant lesions noted. - Neurologic Neurologic Comment(s): Patient has diminished sensorium with diminished epicritic and palliative sensations secondary to diabetic neuropathy bilateral - Musculoskeletal Musculoskeletal Comment(s): All inverters and everters plantar flexors dorsiflexors grossly intact and symmetric bilateral range of motion ankle joint subtalar joint midtarsal joint metatarsophalangeal joints grossly normal symmetric bilateral there is a global hammertoe deformity with contracture of the digits 1 through 5 at the metatarsal phalangeal joint dorsally and at the proximal to phalangeal joints plantarly of the digits. Review of the radiographs show no evidence of chronic osteomyelitis CT scan is negative for osseous involvement - Labs CBC & Chem 7: 10/24/24 03:03 10/24/24 03:03 Labs: Abnormal Lab Results - Last 24 Hours (Table) 10/23/24 10/24/24 10/24/24 Range/Units 20:35 03:03 03:03 RBC 3.72 L (4.40-5.60) 10*6/uL Hgb 11.4 L (13.0-17.0) g/dL Hct 34.6 L (39.6-50.0) % MPV 9.4 L (9.5-12.2) fL POC Glucose (mg/dL) 152 H (70-110) mg/dL Hemoglobin A1c 7.6 H (<=6.0) % Uric Acid (3.5-8.5) mg/dL 10/24/24 10/24/24 Range/Units 03:03 11:26 RBC (4.40-5.60) 10*6/uL Hgb (13.0-17.0) g/dL Hct (39.6-50.0) % MPV (9.5-12.2) fL POC Glucose (mg/dL) 153 H (70-110) mg/dL Hemoglobin A1c (<=6.0) % Uric Acid 2.2 L (3.5-8.5) mg/dL Assessment and Plan Assessment: Abscess Guadarrama grade 3 ulcer left hallux with ascending cellulitis Peripheral vascular disease Type 2 diabetes with neuropathy Plan: Exam after review of patient's labs radiographs history and physical and examination we discussed with patient findings and treatment plan. We discussed with patient he would benefit from immediate incision and drainage of this ulcer abscess in order to remove as much pathological tissue and organisms to help expedient healing and minimize any further tissue loss secondary to infection. We discussed with patient the complications prognosis risk expectation of incision and drainage. Patient would like to proceed with this and patient signed consent for this procedure. After the procedure was performed orders were given to have the wound copiously lavaged daily and application of iodoform gauze. A culture and sensitivity of the tissue culture was taken to help establish the pathologic organism or organisms contributing to patient's condition. Patient is to use a surgical shoe which was ordered to offload the area. We will follow the patient until and after discharge thank you for this consultation Time with Patient: Greater than 30
[2024-10-24 20:30] LABS: Glucose,Whole Blood 151 mg/dL (70-110)
--- NOTE | 2024-10-24 20:30 | P.PCN ---
Date of Procedure: 10/24/24 Preoperative Diagnosis: Guadarrama grade 3 ulceration left hallux with ascending cellulitis Postoperative Diagnosis: Same Procedure(s) Performed: Incision and drainage of infected left hallux Anesthesia: none Pulley Worker #1: Toby Mcleod Pulley Worker #2: Stated None Estimated Blood Loss (ml): 9 Pathology: none sent Condition: stable Disposition: no change Indications for Procedure: Infected Guadarrama grade 3 ulcer abscess left hallux Operative Findings: Consistent with clinical findings Description of Procedure: After explaining to patient the procedure complications prognosis risk patient signed consent for incision and drainage of the infected left hallux so we proceeded with this intervention. No anesthesia was needed due to the patient's level of neuropathy. Using a sterile 10 blade the superficial sloughing tissue was debrided exposing a ulcer abscess measuring approximately 3 mm in diameter and 4 mm in depth. The wound was then curetted with a sterile curette of all necrotic tissue marginally centrally upon doing so a tunnel was noted at the proximal extent and running laterally 2-1/2 cm from the wound. Encompassing the interphalangeal joint. This wound was down to hard osseous tissue and with the curette the hard ostomy tissue did not appear to be soft or infected. At this time it was the wound was lengthened using a sterile 10 blade with an incision made centrally over the abscess running from proximal lateral to distal medial across the wound. The wound was deepened down to superficial and deep fascia exposing the tunneling to its full extent. Once this tunnel was exposed the area was copiously lavaged with sterile saline solution. Upon doing so a small purulent pocket of hematogenous cellular tissue consistent with an infection was removed. After copious lavage the wound was then inspected and adequate surgical reduction of the deformity was noted. Using a sterile hemostat a tissue culture was taken and retained for biological analysis. The wound was then dressed with sterile 4 x 4's. Adequate vascular return was noted to all areas of the right foot and digit with no compromise of vascular flow. Patient tolerated procedure well. Instructions and orders were given for wound care with daily lavage of the wound with sterile saline and application of iodoform into the wound to help promote antibiosis. We discussed with patient secondary closure if needed and we will follow the patient. He is to have these dressing changes done daily and he is going to ambulate with a surgical shoe.
[2024-10-24] MEDS: NON FORMULARY DRUG (Netarsudil Mesylat/Latanoprost [Rocklatan 0.02%-0.005% Eye Drp] 2.5 ML BOTH EYES SCH (21:25)
[2024-10-24] MEDS: HYDROcodone/APAP 7.5-325MG 1 EACH TAB PO PRN (22:49)
--- NOTE | 2024-10-24 22:49 | P.CONS ---
History of Present Illness - Reason for Consult Consult date: 10/24/24 Cellulitis, diabetic patient Requesting physician: Kevin Cowart - Chief Complaint Pain swelling redness to the left big toe and leg x days - History of Present Illness Patient is a 84-year-old male with a past medical history significant for diabetes mellitus hypertension hyperlipidemia coronary artery disease [place] osteoarthritis in this patient presented to hospital 2 days ago for evaluation of increasing pain swelling and redness to the left big toe that apparently has been getting worse for a day or 2 before presentation to hospital patient was concerned of increasing redness traveling to the left lower leg and concern for infection patient did not recall any trauma pain was describing to be throbbing moderate intensity without radiation and did have an episode of vomiting on presentation to the hospital did not recall high-grade fever did have some chills on presentation to the hospital the patient was afebrile and no fever have been called subsequently patient was nontachycardic hypotensive or hypoxic patient did have white count of 11.28 on admission with a left shift creatinine 0.97 electrolyte has been normal liver enzymes are normal patient did have blood cultures obtained which are currently pending he did have several before that wa s negative for any bony changes patient has been treated with vancomycin and Unasyn infectious disease was consulted today because of worsening cellulitis and management of antibiotic therapy Review of Systems Positive point and negatives has been mentioned in the HPI, complete review of systems was performed and all other systems are negative Past Medical History Past Medical History: Coronary Artery Disease (CAD), Diabetes Mellitus, Hyperlipidemia, Hypertension, Myocardial Infarction ([place]), Osteoarthritis (OA), Thyroid Disorder Additional Past Medical History / Comment(s): Hx bladder stones. Gout. Last Myocardial Infarction Date:: 2021 History of Any Multi-Drug Resistant Organisms: None Reported Past Surgical History: Coronary Bypass/CABG, Heart Catheterization With Stent, Joint Replacement, Orthopedic Surgery Additional Past Surgical History / Comment(s): Left knee replacement, right foot reconstructive surgery with 12 screws, cataract surgery, 1 vessel CABG, 5 cardiac stents. Past Anesthesia/Blood Transfusion Reactions: No Reported Reaction Date of Last Stent Placement:: 2021 Past Psychological History: No Psychological Hx Reported Smoking Status: Former smoker Past Alcohol Use History: None Reported Past Drug Use History: None Reported - Past Family History Father Additional Family Medical History / Comment(s): "At age 51 one day woke up not feeling well and had some dizziness and ." Medications and Allergies Home Medications Medication Instructions Recorded Confirmed Type Apixaban [Eliquis] 5 mg PO BID 03/12/19 10/22/24 History Insulin Aspart [NovoLOG Flexpen] See Protocol SQ AC-TID 03/12/19 10/22/24 History Losartan Potassium [Cozaar] 25 mg PO HS 03/12/19 10/22/24 History Tamsulosin HCl [Flomax] 0.4 mg PO BID 03/12/19 10/22/24 History metFORMIN HCL [Glucophage] 1,000 mg PO BID@0900,1700 03/12/19 10/22/24 History Brimonidine Tartrate/Timolol 1 drop BOTH EYES BID 09/25/21 10/22/24 History [Combigan 0.2%-0.5% Eye Drops] Dorzolamide HCl/Pf [Dorzolamide 2% 1 drop BOTH EYES BID 09/25/21 10/22/24 History Eye Drop] Netarsudil Mesylat/Latanoprost 1 drop BOTH EYES HS 09/25/21 10/22/24 History [Rocklatan 0.02%-0.005% Eye Drp] Finasteride [Proscar] 5 mg PO DAILY 01/15/22 10/22/24 History Levothyroxine Sodium [Synthroid] 112 mcg PO DAILY 02/25/22 10/22/24 History Gabapentin 300 mg PO HS 10/21/22 10/22/24 History Rosuvastatin Calcium 40 mg PO HS 10/21/22 10/22/24 History Temazepam [Restoril] 15 mg PO HS PRN 10/21/22 10/22/24 History Empagliflozin [Jardiance] 25 mg PO DAILY@1700 10/22/24 10/22/24 History Insulin Glargine,Hum.rec.anlog 35 units SQ DAILY 10/22/24 10/22/24 History [Lantus Solostar Pen] amLODIPine [Norvasc] 5 mg PO HS 10/22/24 10/22/24 History Allergies Allergy/AdvReac Type Severity Reaction Status Date / Time No Known Allergies Allergy Verified 10/22/24 18:07 Physical Exam Vitals: Vital Signs Temp Pulse Resp BP Pulse Ox 10/24/24 06:50 98.4 F 60 18 123/70 94 L 04/16/25 01:20 98.5 F 61 17 106/63 96 10/23/24 19:06 98.4 F 68 17 124/75 94 L 10/23/24 14:00 98.2 F 62 18 118/70 96 Intake and Output 10/23/24 10/24/24 10/24/24 22:59 06:59 14:59 Other: Voiding Method Toilet # Voids 5 3 1 # Bowel Movements 0 0 GENERAL DESCRIPTION: Elderly male lying in bed, no distress. No tachypnea or accessory muscle of respiration use. HEENT: Shows Pallor , no scleral icterus. Oral mucous membrane is dry. No pharyngeal erythema or thrush NECK: Trachea central, no thyromegaly. LUNGS: Unlabored breathing. Clear to auscultation anteriorly. No wheeze or crackle. HEART: S1, S2, regular rate and rhythm. No loud murmur ABDOMEN: Soft, no tenderness , guarding or rigidity, no organomegaly EXTREMITIES: Left big toe did have swelling redness with a wound on the dorsal aspect he did have purulent drainage which has been cultured SKIN: No rash, no masses palpable. NEUROLOGICAL: The patient is awake, alert, oriented x3, mood and affect normal. Results CBC & Chem 7: 10/24/24 03:03 10/24/24 03:03 Labs: Abnormal Lab Results - Last 24 Hours (Table) 10/23/24 10/23/24 10/24/24 Range/Units 03:07 20:35 03:03 RBC (4.40-5.60) 10*6/uL Hgb (13.0-17.0) g/dL Hct (39.6-50.0) % MPV (9.5-12.2) fL ESR 25 H (0-20) mm/Hr POC Glucose (mg/dL) 152 H (70-110) mg/dL Hemoglobin A1c 7.6 H (<=6.0) % Uric Acid (3.5-8.5) mg/dL 10/24/24 10/24/24 10/24/24 Range/Units 03:03 03:03 11:26 RBC 3.72 L (4.40-5.60) 10*6/uL Hgb 11.4 L (13.0-17.0) g/dL Hct 34.6 L (39.6-50.0) % MPV 9.4 L (9.5-12.2) fL ESR (0-20) mm/Hr POC Glucose (mg/dL) 153 H (70-110) mg/dL Hemoglobin A1c (<=6.0) % Uric Acid 2.2 L (3.5-8.5) mg/dL Assessment and Plan (1) Abscess of left great toe Current Visit: Yes Status: Acute Code(s): L02.612 - CUTANEOUS ABSCESS OF LEFT FOOT SNOMED Code(s): 141866636 (2) Diabetic infection of left foot Current Visit: Yes Status: Acute Code(s): E11.628 - TYPE 2 DIABETES MELLITUS WITH OTHER SKIN COMPLICATIONS; L08.9 - LOCAL INFECTION OF THE SKIN AND SUBCUTANEOUS TISSUE, UNSP SNOMED Code(s): 313876802 Plan: 1patient presented hospital with increasing pain swelling redness to the left big toe and this patient will have multiple comorbidities including diabetes mellitus concerning for left big toe diabetic infection and possible development of an abscess that has not been drained more likely responsible for slow healing 2-patient benefit from surgical I&D and deep culture for which podiatry has been consulted await their evaluation 3-local culture has been obtained that will guide further antibiotic therapy 4will empirically treat with vancomycin pharmacy dose of Unasyn while waiting for the culture to finalize We will follow on clinical condition and cultures to further adjust medication if needed Thank you for this consultation we will follow the patient along with you Dictation was produced using [employer] dictation software. please excuse any grammatical, word or spelling errors. Time with Patient: Greater than 30
[2024-10-25] MEDS: AMPICILLIN-SULBACTAM 3 GM in SODIUM CHLORIDE 0.9% 100 ML IVPB SCH (00:10)
[2024-10-25 06:14] LABS: Glucose,Whole Blood 93 mg/dL (70-110)
--- NOTE | 2024-10-25 11:13 | P.PN ---
Subjective Progress Note Date: 10/25/24 84 year old male with past medical history of coronary artery disease with prior stenting and CABG, diabetes mellitus, hyperlipidemia, hypertension, osteoarthritis, hypothyroidism, gout with former tobacco dependence presented to the ED with lower extremity swelling. Patient initially had a wound on his left first toe 6months to a year ago. He had seen a engraving press operator for that previously. Lately he has endorsed 9/10 pain and reports the wound has become more sore and red along with pus. The redness se ems to have spread up the foot. He has now also noticed swelling on his leg. The pain is new in nature. He denies any injury/trauma. Denies fever/chills. Of note he does report 1 episode of vomiting 2 days ago that started right after having pizza. He denies any nausea or vomiting since then. Additionally, he mentions taking 35 unit of long acting insulin daily along with sliding scale. 10/23 - He is seen and examined at bedside this morning, now on the 4th floor. No acute events overnight, no acute complaints this morning. Does note that the pain is somewhat similar to how it was upon arrival initially, after feeling as though it had gotten a little bit better overnight. 10/24 - He is seen and examined at bedside this morning. No acute events overnight, no acute complaints this morning. Feels as though his foot is improving, with noted improvement in the erythema and edema. Infectious disease and podiatry consulted. 10/25 - He is seen and examined at bedside this morning. No acute events overnight, no acute complaints this morning. Seen by podiatry as well as infectious disease yesterday. Podiatry completed an immediate I&D of the ulcer of the left hallux with deep cultures being sent. He tolerated this procedure well, and has no acute complaints at this time. REVIEW OF SYSTEMS: Pertinent positives and negatives noted in HPI. Physical Exam: Vital signs reviewed General: nontoxic, no distress, appears at stated age Derm: warm, dry, intact Head: atraumatic, normocephalic, symmetric Eyes: EOMI, anicteric sclera Mouth: no lip lesion, mucus membranes moist Cardiovascular: S1 S2 reg, no murmur Lungs: CTA bilateral, no rhonchi, no rales, no accessory muscle use Abdominal: soft, non-tender to palpation Extremities: erythema, edema of distal 2/3 of dorsal aspect of left foot, area of erythema and edema marked with ink, small superficial ulcer on the left great toe with dried blood surrounding, Neuro: Alert, Oriented, Gross neurological examination did not reveal any focal deficits. Psych: well appearing, appropriate affect Data Received Today: Labs: Unavailable at the time of dictation Microbiology: -Preliminary blood culture negative -Preliminary Gram stain from the low left hallux I&D preliminarily positive for presumptive Staph aureus Imagining: -US left foot showed some soft tissue swelling and hyperemia, with poorly defined edema. Assessment and plan Patient is a 84 year old male with past medical history of coronary artery disease with prior stenting and CABG, diabetes mellitus, hyperlipidemia, hypertension, osteoarthritis, hypothyroidism, gout with former tobacco dependence presented to the ED with lower extremity swelling. Active: #Cellulitis of the left foot #Possible diabetic foot ulcer of toe, more superficial, concern for possible abscess #Leukocytosis, resolved -Continue vancomycin, and started on Unasyn 3 g every 8 hours -Continue Tylenol and Toradol for pain management; [place] 7.5 added by podiatry for pain following I&D on 10/24/24 - Blood culture preliminarily negative -Monitor CBC -MRI could not be done due to the patient having a pacemaker. -Preliminary results of Gram stain/wound culture of the left first toe positive for presumptive Staph aureus -ID following; recommend continuation of current antibiotic regimen mentioned above, await final cultures to determine any potential changes -Podiatry following; performed immediate I&D of the ulcer on his left hallux w ith deep cultures being sent on 10/24/2024. Chronic: #Hypertension #Atrial fibrillation, controlled ventricular rate, [id number] #Type 2 diabetes mellitus with neuropathy #Peripheral vascular disease #Hypothyroidism #BPH #Neuropathy #Hyperlipidemia -Continue amlodipine 5 mg p.o. at bedtime, Eliquis 5 mg p.o. twice daily, Jardiance 25 mg p.o. daily, finasteride 5 mg p.o. daily, gabapentin 30 mg p.o. at bedtime, levothyroxine 112 mcg p.o. daily, losartan 25 mg p.o. at bedtime, Crestor 40 mg p.o. at bedtime, tamsulosin 0.4 mg p.o. twice daily, temazepam 15 mg p.o. at bedtime, Lantus 35 units daily and insulin sliding scale DVT ppx: Eliquis 5 mg twice daily GI PPx: Protonix 40 mg daily Code status: Full code F: None E: Replete as needed N: Heart healthy diet A: Ambulatory Anticipated discharge place: Home Anticipated discharge time: 2448 hours Dictation was produced using [employer] dictation software. please excuse any grammatical, word or spelling errors. Roland Cowart MD PGY-1 IM Addending attestation I have seen and evaluated the patient today. Discussed with the resident and agree with the residents finding and plan as documented in the resident's note. Changes highlighted in blue font. Objective - Vital Signs Vital signs: Vital Signs Temp 97.6 F 10/25/24 00:53 Pulse 60 10/25/24 00:53 Resp 16 10/25/24 00:53 BP 143/79 10/25/24 00:53 Pulse Ox 97 10/25/24 00:53 FiO2 Intake & Output 10/24/24 10/25/24 10/25/24 18:59 06:59 18:59 Intake Total 800 Balance 800 Intake: Oral 800 Other: Voiding Method Toilet Toilet # Voids 2 1 # Bowel Movements 0 - Labs CBC & Chem 7: 10/24/24 03:03 10/24/24 03:03 Labs: Abnormal Lab Results - Last 24 Hours (Table) 10/24/24 10/24/24 10/24/24 Range/Units 03:03 03:03 11:26 POC Glucose (mg/dL) 153 H (70-110) mg/dL Hemoglobin A1c 7.6 H (<=6.0) % Uric Acid 2.2 L (3.5-8.5) mg/dL 10/24/24 Range/Units 20:29 POC Glucose (mg/dL) 151 H (70-110) mg/dL Hemoglobin A1c (<=6.0) % Uric Acid (3.5-8.5) mg/dL Microbiology - Last 24 Hours (Table) 10/24/24 12:37 Gram Stain - Preliminary Toe - Left First 10/22/24 16:15 Blood Culture - Preliminary Blood
[2024-10-25 11:59] LABS: Glucose,Whole Blood 116 mg/dL (70-110)
[2024-10-25 13:40] LABS: African American GFR (CKD) >90 (>60 ml/min/1.73 sqM); Anion Gap 7 mmol/L; Blood Urea Nitrogen 12 mg/dL (9-20); Carbon Dioxide 24 mmol/L (22-30); Chloride 106 mmol/L (98-107); Glucose 154 mg/dL (74-99); Non-African American GFR(CKD) 86 (>60 ml/min/1.73 sqM); Potassium 4.4 mmol/L (3.5-5.1); Sodium 137 mmol/L (137-145)
[2024-10-25] MEDS: VANCOMYCIN TROUGH DUE 1 EACH MISC MISCELLANE ONE (14:31)
--- NOTE | 2024-10-25 15:11 | P.PN ---
Subjective Progress Note Date: 10/25/24 Principal diagnosis: Reason for follow-up is left big toe diabetic foot infection/abscess Patient is a 84-year-old male with a past medical history significant for diabetes mellitus hypertension hyperlipidemia coronary artery disease [place] osteoarthritis in this patient presented to hospital for evaluation of increasing pain swelling and redness to the left big toe, patient status post bedside drainage of this abscess completed on 10/24/2024 On today's evaluation is 10/25/2024,the patient remains to be afebrile, patient is on room air not requiring supplemental oxygen and denies any shortness of breath no chest pain or cough.Patient denies having any nausea or vomiting, no abdominal pain and no diarrhea has been reported, pain to the left foot is currently controlled. Patient did have creatinine 0.75 Vanco trough is 15 culture growing Staph aureus Objective - Vital Signs Vital signs: Vital Signs Temp 97.6 F 10/25/24 07:05 Pulse 69 10/25/24 07:05 Resp 16 10/25/24 07:05 BP 120/72 10/25/24 07:05 Pulse Ox 97 10/25/24 07:05 FiO2 Intake & Output 10/24/24 10/25/24 10/25/24 18:59 06:59 18:59 Intake Total 800 660 Balance 800 660 Intake: Oral 800 660 Other: Voiding Method Toilet Toilet # Voids 2 1 1 # Bowel Movements 0 - Exam GENERAL DESCRIPTION: An elderly male lying in bed in no distress RESPIRATORY SYSTEM: Unlabored breathing , decreased breath sounds at bases HEART: S1 S2 regular rate and rhythm , ABDOMEN: Soft , no tenderness EXTREMITIES: Left foot is currently dressed - Labs CBC & Chem 7: 10/24/24 03:03 10/25/24 12:56 Labs: Abnormal Lab Results - Last 24 Hours (Table) 10/24/24 10/25/24 Range/Units 20:29 11:57 POC Glucose (mg/dL) 151 H 116 H (70-110) mg/dL Microbiology - Last 24 Hours (Table) 10/24/24 12:37 Gram Stain - Preliminary Toe - Left First Wound Culture - Preliminary Presumptive Staph aureus 10/22/24 16:15 Blood Culture - Preliminary Blood Assessment and Plan (1) Abscess of left great toe Current Visit: Yes Status: Acute Code(s): L02.612 - CUTANEOUS ABSCESS OF LEFT FOOT SNOMED Code(s): 413586391 (2) Diabetic infection of left foot Current Visit: Yes Status: Acute Code(s): E11.628 - TYPE 2 DIABETES MELLITUS WITH OTHER SKIN COMPLICATIONS; L08.9 - LOCAL INFECTION OF THE SKIN AND SUBCUTANE OUS TISSUE, UNSP SNOMED Code(s): 278544463 Plan: 1patient presented hospital with increasing pain swelling redness to the left big toe and this patient will have multiple comorbidities including diabetes mellitus concerning for left big toe diabetic infection and possible development of an abscess that has not been drained more likely responsible for slow healing 2-patient is status post bedside I&D by podiatry 3-local culture growing Staph aureus with sensitivities pending 4patient will be treated with vancomycin pharmacy dose of Unasyn while waiting for the culture to finalize discharge antibiotics Dictation was produced using [employer] dictation software. please excuse any grammatical, word or spelling errors. Time with Patient: Less than 30
[2024-10-25 17:02] LABS: Glucose,Whole Blood 107 mg/dL (70-110)
[2024-10-25 19:59] LABS: Glucose,Whole Blood 145 mg/dL (70-110)
[2024-10-26 04:37] LABS: African American GFR (CKD) >90 (>60 ml/min/1.73 sqM); Non-African American GFR(CKD) 88 (>60 ml/min/1.73 sqM)
[2024-10-26 04:39] LABS: African American GFR (CKD) >90 (>60 ml/min/1.73 sqM); Anion Gap 7 mmol/L; Blood Urea Nitrogen 11 mg/dL (9-20); Calcium 8.9 mg/dL (8.4-10.2); Carbon Dioxide 25 mmol/L (22-30); Chloride 106 mmol/L (98-107); Glucose 70 mg/dL (74-99); Non-African American GFR(CKD) 86 (>60 ml/min/1.73 sqM); Potassium 3.9 mmol/L (3.5-5.1); Sodium 138 mmol/L (137-145)
[2024-10-26 06:06] LABS: Glucose,Whole Blood 73 mg/dL (70-110)
[2024-10-26 07:22] VITALS: RESP 18
--- NOTE | 2024-10-26 10:26 | P.PN ---
Subjective Progress Note Date: 10/26/24 84 year old male with past medical history of coronary artery disease with prior stenting and CABG, diabetes mellitus, hyperlipidemia, hypertension, osteoarthritis, hypothyroidism, gout with former tobacco dependence presented to the ED with lower extremity swelling. Patient initially had a wound on his left first toe 6months to a year ago. He had seen a material scheduler for that previously. Lately he has endorsed 9/10 pain and reports the wound has become more sore and red along with pus. The redness se ems to have spread up the foot. He has now also noticed swelling on his leg. The pain is new in nature. He denies any injury/trauma. Denies fever/chills. Of note he does report 1 episode of vomiting 2 days ago that started right after having pizza. He denies any nausea or vomiting since then. Additionally, he mentions taking 35 unit of long acting insulin daily along with sliding scale. 10/23 - He is seen and examined at bedside this morning, now on the 4th floor. No acute events overnight, no acute complaints this morning. Does note that the pain is somewhat similar to how it was upon arrival initially, after feeling as though it had gotten a little bit better overnight. 10/24 - He is seen and examined at bedside this morning. No acute events overnight, no acute complaints this morning. Feels as though his foot is improving, with noted improvement in the erythema and edema. Infectious disease and podiatry consulted. 10/25 - He is seen and examined at bedside this morning. No acute events overnight, no acute complaints this morning. Seen by podiatry as well as infectious disease yesterday. Podiatry completed an immediate I&D of the ulcer of the left hallux with deep cultures being sent. He tolerated this procedure well, and has no acute complaints at this time. 10/26 - He is seen and examined at bedside this morning. No acute events overnight, no acute complaints this morning. Per infectious disease recommendation, awaiting final culture data determine appropriate antibiotic course. REVIEW OF SYSTEMS: Pertinent positives and negatives noted in HPI. Physical Exam: Vital signs reviewed General: nontoxic, no distress, appears at stated age Derm: warm, dry, intact Head: atraumatic, normocephalic, symmetric Eyes: EOMI, anicteric sclera Mouth: no lip lesion, mucus membranes moist Cardiovascular: S1 S2 reg, no murmur Lungs: CTA bilateral, no rhonchi, no rales, no accessory muscle use Abdominal: soft, non-tender to palpation Extremities: Improving erythema, edema of the left lower extremity, particularly at the level of the calf. Edema previously seen at the ankle/foot improving. Bandage wrapped around the first digit of the left foot. Neuro: Alert, Oriented, Gross neurological examination did not reveal any focal deficits. Psych: well appearing, appropriate affect Data Received Today: Labs: Sodium 130, potassium 3.9, BUN 11, creatinine 0.74, calcium 8.9 Microbiology: -Preliminary blood culture negative -Preliminary Gram stain from the low left hallux I&D preliminarily positive for presumptive Staph aureus Imagining: -US left foot showed some soft tissue swelling and hyperemia, with poorly defined edema. Assessment and plan Patient is a 84 year old male with past medical history of coronary artery disease with prior stenting and CABG, diabetes mellitus, hyperlipidemia, hypertension, osteoarthritis, hypothyroidism, gout with former tobacco dependence presented to the ED with lower extremity swelling. Active: #Cellulitis of the left foot #Possible diabetic foot ulcer of toe, more superficial, concern for possible abscess #Leukocytosis, resolved -Continue vancomycin, and started on Unasyn 3 g every 8 hours -Continue Tylenol and Toradol for pain management; [place] 7.5 added by podiatry f or pain following I&D on 10/24/24 -Blood culture preliminarily negative -Monitor CBC -MRI could not be done due to the patient having a pacemaker. Obtained US of the left foot, particularly the left big toe. -Preliminary results of Gram stain/wound culture of the left first toe positive for presumptive Staph aureus -ID following; recommend continuation of current antibiotic regimen mentioned above, await final cultures to determine any potential changes -Podiatry following; performed immediate I&D of the ulcer on his left hallux with deep cultures being sent on 10/24/24 Chronic: #Hypertension #Atrial fibrillation, controlled ventricular rate, [id number] 5 #Type 2 diabetes mellitus with neuropathy #Peripheral vascular disease #Hypothyroidism #BPH #Neuropathy #Hyperlipidemia -Continue amlodipine 5 mg p.o. at bedtime, Eliquis 5 mg p.o. twice daily, J ardiance 25 mg p.o. daily, finasteride 5 mg p.o. daily, gabapentin 30 mg p.o. at bedtime, levothyroxine 112 mcg p.o. daily, losartan 25 mg p.o. at bedtime, Crestor 40 mg p.o. at bedtime, tamsulosin 0.4 mg p.o. twice daily, temazepam 15 mg p.o. at bedtime, Lantus 35 units daily and insulin sliding scale DVT ppx: Eliquis 5 mg twice daily GI PPx: Protonix 40 mg daily Code status: Full code F: None E: Replete as needed N: Heart healthy diet A: Ambulatory Anticipated discharge place: Home Anticipated discharge time: 2448 hours Dictation was produced using [employer] dictation software. please excuse any grammatical, word or spelling errors. Roland Cowart MD PGY-1 IM I saw and evaluated the patient during the trotter and critical portions of this encounter, and discussed the case in detail with the resident author of this note, I agree with the Assessment and Plan, and my changes, if any, are hi ghlighted in blue. Patient has significant improvement of cellulitis status post I&D. Discussed this case with infectious disease, who recommends patient is stable for discharge. Discharge summary to follow. Patient will be discharged on Keflex with PCP follow-up. Patient will also require podiatry follow-up. Discharge summary to follow. Objective - Vital Signs Vital signs: Vital Signs Temp 97.5 F L 10/26/24 06:48 Pulse 60 10/26/24 06:48 Resp 18 10/26/24 06:48 BP 127/64 10/26/24 06:48 Pulse Ox 98 10/26/24 06:48 FiO2 Intake & Output 10/25/24 10/26/24 10/26/24 18:59 06:59 18:59 Intake Total 1500 Balance 1500 Intake: Oral 1500 Other: Voiding Method Toilet # Voids 3 2 - Labs CBC & Chem 7: 10/24/24 03:03 10/26/24 04:04 Labs: Abnormal Lab Results - Last 24 Hours (Table) 10/25/24 10/25/24 10/25/24 Range/Units 11:57 12:56 19:57 Glucose 154 H (74-99) mg/dL POC Glucose (mg/dL) 116 H 145 H (70-110) mg/dL 10/26/24 Range/Units 04:04 Glucose 70 L (74-99) mg/dL POC Glucose (mg/dL) (70-110) mg/dL Microbiology - Last 24 Hours (Table) 10/24/24 20:16 Gram Stain - Preliminary Toe - Left First 10/22/24 16:15 Blood Culture - Preliminary Blood 10/24/24 12:37 Gram Stain - Preliminary Toe - Left First Wound Culture - Preliminary Presumptive Staph aureus
[2024-10-26 11:24] LABS: Glucose,Whole Blood 188 mg/dL (70-110)
--- NOTE | 2024-10-26 11:39 | P.PN ---
Subjective Progress Note Date: 10/26/24 Principal diagnosis: Guadarrama grade 3 ulcer/abscess left hallux with ascending cellulitis Patient is a 84-year-old white male admitted to the hospital on 10/22/2024 chief complaint of infected left hallux. Patient states she saw his doughnut maker on Tuesday and was told to go to the hospital for admission due to a infected left hallux. He states his left hallux has had a sore on it for several months. He states recently it started getting sore he presented to his doughnut maker who i nformed him that this was infected and needed hospital admission for treatment. Patient's past medical history Past Medical History: Coronary Artery Disease (CAD), Diabetes Mellitus, Hyperlipidemia, Hypertension, Myocardial Infarction ([place]), Osteoarthritis (OA), Thyroid Disorder Additional Past Medical History / Comment(s): Hx bladder stones. Gout. Last Myocardial Infarction Date:: 2021 History of Any Multi-Drug Resistant Organisms: None Reported Past Surgical History: Coronary Bypass/CABG, Heart Catheterization With Stent, Joint Replacement, Orthopedic Surgery Additional Past Surgical History / Comment(s): Left knee replacement, right foot reconstructive surgery with 12 screws, cataract surgery, 1 vessel CABG, 5 cardiac stents. Past Anesthesia/Blood Transfusion Reactions: No Reported Reaction Date of Last Stent Placement:: 2021 Past Psychological History: No Psychological Hx Reported Smoking Status: Former smoker Past Alcohol Use History: None Reported Past Drug Use History: None Reported Objective - Vital Signs Vital signs: Vital Signs Temp 97.5 F L 10/26/24 06:48 Pulse 60 10/26/24 06:48 Resp 18 10/26/24 06:48 BP 127/64 10/26/24 06:48 Pulse Ox 98 10/26/24 06:48 FiO2 Intake & Output 10/25/24 10/26/24 10/26/24 18:59 06:59 18:59 Intake Total 1500 Balance 1500 Intake: Oral 1500 Other: Voiding Method Toilet Toilet # Voids 3 2 - Exam Examination of the left hallux in the area of the incision and drainage shows some superficial slough in the dermis secondary to decreased edema of the area surrounding the incision site however there is no necrotic tissue of the incision site or between the margins between the incision. There is decreased erythema decreased edema with decreased pain and no drainage other than serous through the incision with the left hallux showing improvement clinically with the diminishing edema erythema and. Neurovascular status is unchanged. Review of tissue culture shows presumptive Staph aureus with no sensitivities noted at this time - Labs CBC & Chem 7: 10/24/24 03:03 10/26/24 04:04 Labs: Abnormal Lab Results - Last 24 Hours (Table) 10/25/24 10/25/24 10/25/24 Range/Units 11:57 12:56 19:57 Glucose 154 H (74-99) mg/dL POC Glucose (mg/dL) 116 H 145 H (70-110) mg/dL 10/26/24 10/26/24 Range/Units 04:04 11:23 Glucose 70 L (74-99) mg/dL POC Glucose (mg/dL) 188 H (70-110) mg/dL Microbiology - Last 24 Hours (Table) 10/24/24 20:16 Gram Stain - Preliminary Toe - Left First Tissue Culture - Preliminary Presumptive Staph aureus 10/24/24 12:37 Gram Stain - Final Toe - Left First Wound Culture - Final Staphylococcus aureus 10/22/24 16:15 Blood Culture - Preliminary Blood Assessment and Plan Assessment: Abscess Guadarrama grade 3 ulcer left hallux with ascending cellulitis Peripheral vascular disease Type 2 diabetes with neuropathy Plan: Exam review of culture and sensitivity biologic studies. Discussed with patient findings and treatment. We did do a dry sterile dressing change. And ordered bacitracin to be applied to the incision site daily. Patient continue with dry sterile dressing changes daily. From a podiatric perspective patient can be discharged we will follow the patient in her office per pending infectious dis ease evaluation and management. Thank you for this consult Time with Patient: Greater than 30
--- NOTE | 2024-10-26 14:19 | P.DS ---
Providers Date of admission: 10/22/24 17:54 Attending physician: Renee Koenig MD Consults: 10/24/24 11:34 Consult Physician Routine Consulting Provider: Bhumika Dominguez Consult Reason/Comments: Cellulitis, diabetic patient Do you want consulting provider notified?: Yes 10/24/24 11:37 Consult Physician Routine Consulting Provider: Toby Mcleod Consult Reason/Comments: Cellulitis/foot infection Do you want consulting provider notified?: Yes [facility] Course: Discharge diagnoses; #Cellulitis of the left foot #Possible diabetic foot ulcer of toe, more superficial, concern for possible abscess #Leukocytosis, resolved #Hypertension #Atrial fibrillation, controlled ventricular rate, [id number] 5 #Type 2 diabetes mellitus with neuropathy #Peripheral vascular disease #Hypothyroidism #BPH #Neuropathy #Hyperlipidemia Hospital course; 84 year old male with past medical history of coronary artery disease with prior stenting and CABG, diabetes mellitus, hyperlipidemia, hypertension, osteoarthritis, hypothyroidism, gout with former tobacco dependence presented to the ED with lower extremity swelling. Patient initially had a wound on his left first toe 6months to a year ago. He had seen a forging press lever tender for that previously. Lately he has endorsed 9/10 pain and reports the wound has become more sore and red along with pus. The redness seems to have spread up the foot. He has now also noticed swelling on his leg. The pain is new in nature. He denies any injury/trauma. Denies fever/chills. During his stay he underwent x-ray of the left foot which showed no evidence of acute fracture and no osseous erosions to suggest osteomyelitis, with evidence of soft tissue swelling. Additionally, he underwent an ultrasound of the left first digit which showed some soft tissue swelling and hyperemia as well as poorly defined edema. With fear of cellulitis with a possible chance of a diabetic foot infection, and although low probability, of osteomyelitis he was initially treated with IV antibiotics with Unasyn and vancomycin. Podiatry and infectious disease were consulted and followed the patient through the duration of his stay. Podiatry performed an I&D of the infected left hallux, and cultures were taken at that time as well by infectious disease later on. Cultures were positive for MSSA. And after discussion with infectious disease, discharged on oral antibiotics is considered the appropriate course of action. He is continue to feel better for the duration of his stay, and notes limited pain to the left lower extremity. Discussed with him the importance of following up with his primary care physician as well as infectious disease upon discharge from the hospital within 1-2 weeks. Additionally, discussed the importance of adherence to medication and antibiotics following discharge, to which she verbalized understanding. He is very excited to be discharged today. Physical Exam: General: nontoxic, no distress, appears at stated age Derm: warm, dry, intact Head: atraumatic, normocephalic, symmetric Eyes: EOMI, anicteric sclera Mouth: no lip lesion, mucus membranes moist Cardiovascular: S1 S2 reg, no murmur Lungs: CTA bilateral, no rhonchi, no rales, no accessory muscle use Abdominal: soft, non-tender to palpation Extremities: Improving erythema, edema of the left lower extremity, particularly at the level of the calf. Edema previously seen at the ankle/foot improving. Bandage wrapped around the first digit of the left foot. Neuro: Alert, Oriented, Gross neurological examination did not reveal any focal deficits. Psych: well appearing, appropriate affect Dictation was produced using [employer] dictation software. please excuse any grammatical, word or spelling errors. Roland Cowart MD PGY-1 IM I saw and evaluated the patient during the trotter and critical portions of this encounter, and discussed the case in detail with the resident author of this note, I agree with the Assessment and Plan, and my changes, if any, are highlighted in blue. The patient also will need follow-up podiatry for his foot. Patient Condition at Discharge: Fair Plan - Discharge Summary Discharge Rx Participant: No New Discharge Prescriptions: New Cephalexin [Keflex] 500 mg PO Q8HR 14 Days #42 cap Pantoprazole [Protonix] 40 mg PO AC-BRKFST #30 tab Continue metFORMIN HCL [Glucophage] 1,000 mg PO BID@0900,1700 Tamsulosin HCl [Flomax] 0.4 mg PO BID Losartan Potassium [Cozaar] 25 mg PO HS Apixaban [Eliquis] 5 mg PO BID Insulin Aspart [NovoLOG Flexpen] See Protocol SQ AC-TID Levothyroxine Sodium [Synthroid] 112 mcg PO DAILY Rosuvastatin Calcium 40 mg PO HS amLODIPine [Norvasc] 5 mg PO HS Brimonidine Tartrate/Timolol [Combigan 0.2%-0.5% Eye Drops] 1 drop BOTH EYES BID Netarsudil Mesylat/Latanoprost [Rocklatan 0.02%-0.005% Eye Drp] 1 drop BOTH EYES HS Dorzolamide HCl/Pf [Dorzolamide 2% Eye Drop] 1 drop BOTH EYES BID Finasteride [Proscar] 5 mg PO DAILY Temazepam [Restoril] 15 mg PO HS PRN PRN Reason: Insomnia Gabapentin 300 mg PO HS Empagliflozin [Jardiance] 25 mg PO DAILY@1700 Insulin Glargine,Hum.rec.anlog [Lantus Solostar Pen] 35 units SQ DAILY Discharge Medication List Apixaban [Eliquis] 5 mg PO BID 03/12/19 [History] Insulin Aspart [NovoLOG Flexpen] See Protocol SQ AC-TID 03/12/19 [History] Losartan Potassium [Cozaar] 25 mg PO HS 03/12/19 [History] Tamsulosin HCl [Flomax] 0.4 mg PO BID 03/12/19 [History] metFORMIN HCL [Glucophage] 1,000 mg PO BID@0900,1700 03/12/19 [History] Brimonidine Tartrate/Timolol [Combigan 0.2%-0.5% Eye Drops] 1 drop BOTH EYES BID 09/25/21 [History] Dorzolamide HCl/Pf [Dorzolamide 2% Eye Drop] 1 drop BOTH EYES BID 09/25/21 [History] Netarsudil Mesylat/Latanoprost [Rocklatan 0.02%-0.005% Eye Drp] 1 drop BOTH EYES HS 09/25/21 [History] Finasteride [Proscar] 5 mg PO DAILY 01/15/22 [History] Levothyroxine Sodium [Synthroid] 112 mcg PO DAILY 02/25/22 [History] Gabapentin 300 mg PO HS 10/21/22 [History] Rosuvastatin Calcium 40 mg PO HS 10/21/22 [History] Temazepam [Restoril] 15 mg PO HS PRN 10/21/22 [History] Empagliflozin [Jardiance] 25 mg PO DAILY@1700 10/22/24 [History] Insulin Glargine,Hum.rec.anlog [Lantus Solostar Pen] 35 units SQ DAILY 10/22/24 [History] amLODIPine [Norvasc] 5 mg PO HS 10/22/24 [History] Cephalexin [Keflex] 500 mg PO Q8HR 14 Days #42 cap 10/26/24 [Rx] Pantoprazole [Protonix] 40 mg PO AC-BRKFST #30 tab 10/26/24 [Rx] Follow up Appointment(s)/Referral(s): Sharif Tamayo DO [Primary Care Provider] - 1-2 days (Office is closed, please call to make appointment. ) Bhumika Dominguez MD [STAFF PHYSICIAN] - 1 Week (Office is closed, please call to make appointment.) [facility] Visiting Nurse, [NON-STAFF] - As Needed Activity/Diet/Wound Care/Special Instructions: Please be sure to follow-up with your primary care physician within 1-3 days of discharge from the hospital. Be sure to follow-up with infectious disease within 1-2 weeks of discharge. Discharge Disposition: HOME SELF-CARE
[2024-10-26 14:39] VITALS: BP 126/71; PULSE 65; TEMP 98.8
--- NOTE | 2024-10-26 15:30 | P.PN ---
Subjective Progress Note Date: 10/26/24 Principal diagnosis: Reason for follow-up is left big toe diabetic foot infection/abscess Patient is a 84-year-old male with a past medical history significant for diabetes mellitus hypertension hyperlipidemia coronary artery disease VA osteoarthritis in this patient presented to hospital for evaluation of increasing pain swelling and redness to the left big toe, patient status post bedside drainage of this abscess completed on 10/24/2024 On today's evaluation is 10/26/2024, the patient continues to be afebrile, the patient is on room air and breathing comfortably, the Pt denies having any chest pain or cough, the patient denies having any abdominal pain no vomiting or any diarrhea, pain to the left big toe has decreased in intensity feeling better. Patient did have a creatinine 0.74 culture finalized with MSSA Objective - Vital Signs Vital signs: Vital Signs Temp 97.5 F L 10/26/24 06:48 Pulse 60 10/26/24 06:48 Resp 18 10/26/24 06:48 BP 127/64 10/26/24 06:48 Pulse Ox 98 10/26/24 06:48 FiO2 Intake & Output 10/25/24 10/26/24 10/26/24 18:59 06:59 18:59 Intake Total 1500 Balance 1500 Intake: Oral 1500 Other: Voiding Method Toilet # Voids 3 2 - Exam GENERAL DESCRIPTION: An elderly male lying in bed in no distress RESPIRATORY SYSTEM: Unlabored breathing , decreased breath sounds at bases HEART: S1 S2 regular rate and rhythm , ABDOMEN: Soft , no tenderness EXTREMITIES: Left big toe swelling redness has decreased - Labs CBC & Chem 7: 10/24/24 03:03 10/26/24 04:04 Labs: Abnormal Lab Results - Last 24 Hours (Table) 10/25/24 10/25/24 10/25/24 Range/Units 11:57 12:56 19:57 Glucose 154 H (74-99) mg/dL POC Glucose (mg/dL) 116 H 145 H (70-110) mg/dL 10/26/24 10/26/24 Range/Units 04:04 11:23 Glucose 70 L (74-99) mg/dL POC Glucose (mg/dL) 188 H (70-110) mg/dL Microbiology - Last 24 Hours (Table) 10/24/24 20:16 Gram Stain - Preliminary Toe - Left First Tissue Culture - Preliminary Presumptive Staph aureus 10/24/24 12:37 Gram Stain - Final Toe - Left First Wound Culture - Final Staphylococcus aureus 10/22/24 16:15 Blood Culture - Preliminary Blood Assessment and Plan (1) Abscess of left great toe Status: Acute Code(s): L02.612 - CUTANEOUS ABSCESS OF LEFT FOOT SNOMED Code(s): 182639359 (2) Diabetic infection of left foot Status: Acute Code(s): E11.628 - TYPE 2 DIABETES MELLITUS WITH OTHER SKIN COMPLICATIONS; L08.9 - LOCAL INFECTION OF THE SKIN AND SUBCUTANEOUS TISSUE, UNSP SNOMED Code(s): 354385834 Plan: 1patient presented hospital with increasing pain swelling redness to the left big toe and this patient will have multiple comorbidities including diabetes mellitus concerning for left big toe diabetic infection and possible development of an abscess that has not been drained more likely responsible for slow healing 2-patient is status post bedside I&D by podiatry 3-local culture grew MSSA blood culture has been negative 4patient left big toe swelling redness has decreased was advised 10-day course of oral Keflex on discharge this was discussed with admitting team and resident physician and close outpatient follow-up Dictation was produced using [employer] dictation software. please excuse any grammatical, word or spelling errors. Time with Patient: Less than 30
--- NOTE | 2024-10-30 13:44 | CDI ---
Documentation Clarification Form Date: 10/30/24 From: CONSTANZA Ferrer Admit Date: 10/22/2024 05:54:00 PM Patient Name: Felipe Moon Visit Number: [id number] Discharge Date: 10/26/2024 03:18:00 PM ATTENTION: The Clinical Documentation Specialists (CDI) and [facility] Coding Staff appreciate your assistance in clarifying documentation. Please respond to the clarification below the line at the bottom and electronically sign. The CDI & [facility] Coding staff will review the response and follow-up if needed. Please note: Queries are made part of the Legal Health Record. If you have any questions, please contact the author of this message via ITS. Doctor/Provider: Toby Butler debridement is documented on 10/24/21. Unfortunately, some required elements have not been documented. Additional clarification regarding the procedure is requested. Progress Note 10/24: Upon debridement of the superficial sloughing tissue a small abscess ulcer was noted in this area History/Risk Factors: Patient is admitted with a diabetic foot ulcer of the toe along with cellulitis. Clinical Indicators: Ulcer of the left great toe, erythema and edema of the foot. WBC of 11.2 Treatment: Procedure indicates Incision and drainage of infected left hallux. The wound was then curetted with a sterile curette of all necrotic tissue marginally centrally upon doing so a tunnel was noted at the proximal extent and running laterally 2-1/2cm from the wound.This wound was down to hard osseous tissue and with the curette the hard ostomy tissue di d not appear to be soft or infected. At this time it was the wound was lengthened using a sterile 10 blade with an incision made centrally over the abscess running from proximal lateral to distal medial across the wound. The wound was deepened down to superficial and deep fascia exposing the tunneling to its full extent. Please clarify the procedure performed: [x ] Excisional debridement (the removal of necrotic, devitalized tissue or slough by means of cutting away of tissue) Instrument: _15 blade Nature of the tissue removed ___necrotic____ Appearance of the wound down to healthy tissue Depth of debridement __0.4 cm [ ] Non-excisional debridement (the removal of necrotic, devitalized tissue or slough by means of flushing, brushing, or washing. (Irrigation) Instrument: Nature of the tissue removed Appearance of the wound Depth of debridement [ ] Other; please specify Five elements required for accurate and compliant documentation of a debridement: -Technique used (e.g., excisional, excised, cutting, brushing, jet lavage etc.) -Instrument(s) used (e.g., scalpel, curette, etc.) -Nature of the tissue removed (e.g., necrotic, devitalized tissues, non-viable tissue, etc.) -Appearance and size of the wound (e.g., down to fresh bleeding tissue, 7cm x 10cm, etc.) -Depth of the debridement* (e.g., skin, subcutaneous tissue, fascia, muscle, bone, etc.) MTDD
== END 2024-10-26 15:18 | disposition home or self-care (01) | DRG 629 ==
LOC: EC 14:55 → 4SSUR 17:54 → OBSVTOIN 17:54 → 4SSUR 18:34
PROVIDERS: ADMIT Family Medicine; ATTEND Family Medicine
PROC: 0QBR0ZZ Excision of Left Toe Phalanx, Open Approach (ICD-10-PCS; principal; 2024-10-24)
DX: E11.621 Type 2 diabetes mellitus with foot ulcer (principal); E11.52 Type 2 diabetes mellitus with diabetic peripheral angiopathy with gangrene; L97.529 Non-pressure chronic ulcer of other part of left foot with unspecified severity; I70.262 Atherosclerosis of native arteries of extremities with gangrene, left leg; L03.116 Cellulitis of left lower limb; B95.61 Methicillin susceptible Staphylococcus aureus infection as the cause of diseases classified elsewhere; E03.9 Hypothyroidism, unspecified; E11.40 Type 2 diabetes mellitus with diabetic neuropathy, unspecified; I10 Essential (primary) hypertension; L02.612 Cutaneous abscess of left foot; E11.628 Type 2 diabetes mellitus with other skin complications; Z79.4 Long term (current) use of insulin; I48.91 Unspecified atrial fibrillation; E78.5 Hyperlipidemia, unspecified; I25.10 Atherosclerotic heart disease of native coronary artery without angina pectoris; N40.0 Benign prostatic hyperplasia without lower urinary tract symptoms; Z96.652 Presence of left artificial knee joint; Z79.01 Long term (current) use of anticoagulants; Z79.84 Long term (current) use of oral hypoglycemic drugs; Z79.890 Hormone replacement therapy; I25.2 Old myocardial infarction; Z95.5 Presence of coronary angioplasty implant and graft; Z95.1 Presence of aortocoronary bypass graft; Z79.02 Long term (current) use of antithrombotics/antiplatelets; Z79.899 Other long term (current) drug therapy; Z87.891 Personal history of nicotine dependence
CPT/HCPCS: 36415; 80048; 80053; 80202; 82565; 83036; 83605; 84550; 85025; 85027; 85610; 85652; 85730; 86140; 87040; 87070; 87075; 87077; 87186; 87205; 93005; 96365; 96366; 96375; 99285